=== PATIENT | female | born 1950 | race Caucasian/White ===

== ENCOUNTER 2024-01-25 21:30 | Inpatient (IN) ==
--- NOTE | 2024-01-25 22:09 | Emergency Department Note ---
Impression & Plan Fever ADMIT ED Provider Note HPI: History obtained from patient. The patient is a 73-year-old female who presents emergency department chief complaint of fever and generalized weakness. Patient states that the symptoms just began earlier today. Patient states she has had similar symptoms in the past associated with urinary tract infections. Patient denies any abdominal pain, denies any vomiting, denies any chest pain or shortness of breath. On arrival here to the ER, the patient is noted to be febrile at 39.7, presenting blood pressure is 179/78, patient otherwise appears to be in no acute distress on my initial assessment. She does not splint focal deficits, she is alert and oriented x 3. ROS: - Per HPI Differential Diagnosis: Sepsis, urinary tract infection, pyelonephritis, pneumonia, viral upper respiratory infection to include COVID-19, influenza A, amongst other potential pathologies. *Outpatient medications and allergy history reviewed. PE: General: Alert, frail-appearing, no acute distress HEENT: Normocephalic, trachea midline Eyes: Extraocular eye movement is intact, no scleral erythema Pulmonary: Clear to auscultation bilaterally, no wheezing Cardio: Regular rate and rhythm GI: Abdomen is soft to palpation : No suprapubic tenderness MSK: No evidence of trauma or malformation of the extremities, no edema Skin: No evidence of rash Neuro: Alert, no focal deficits Psychiatric: Cooperative INDEPENDENT INTERPRETATIONS: ekg monitor tech: (As interpreted by myself): - An order was placed for continuous cardiac monitoring - Patient was noted to be in sinus rhythm with a rate of 78 EKG: (As interpreted by myself): 8 rate: 102 Rhythm: Sinus tachycardia Intervals: Within normal limits ST changes: No ST elevation Time: 2222 Chest x-ray: (As interpreted by myself): No acute disease Interventions provided in ED: -IV fluid bolus, IV ceftriaxone Medical Decision Making: IV was established and lab work obtained, patient was placed on clinical research monitor. Lab work shows a leukocytosis of 14.04, hemoglobin is 7.8 with unclear baseline, platelet count is normal, CMP does not show any critical findings, creatinine appears to be near baseline at 1.66 (1.81 in 2019) sodium is slightly low at 129, there is no evidence of any transaminitis, bilirubin is normal, lipase is normal, procalcitonin is elevated at 1.42, urinalysis was obtained and shows 3+ protein, 2+ glucose, 3+ blood, there is trace leukocyte Estrace with some pyuria, also budding yeast. Blood cultures were drawn in the ED, patient was given 30 cc/kg of IV fluid given presenting fever with lab work findings of leukocytosis and elevated procalcitonin. Virus panel testing is negative. Patient was given a dose of ceftriaxone prophylactically over concern for urinary tract infection. In regards to the patient's anemia, she states she has had issues with anemia that previously required transfusions, she states that she was transfused at [facility] in April. Patient states she refused any type of invasive testing such as colonoscopy. She notes that she is DNR/DNI. Patient denies any recent hematemesis or rectal bleeding or melena. Given the patient's generalized weakness, anemia, and possible early sepsis with fever and elevated procalcitonin, she will be admitted to the hospitalist service following my discussion with Dr. Tai. Patient was placed for admission in stable condition. Consultants/Discussions held with other healthcare providers: -Hospitalist, Dr. Tai Disposition discussion held by myself with: -Patient Diagnosis: 1. Fever, acute 2. Chronic kidney disease 3. Anemia of unknown chronicity 4. Leukocytosis, acute 5. Elevated procalcitonin, acute 6. Hyponatremia, acute Disposition: Admission Mitchel Edmondson DO Emergency Medicine Past Med/Surg History Medical History (Updated 01/26/24 @ 02:07 by Mitchel Edmondson DO) Hx pulmonary embolism Family History Other Family history non-contributory Social History Smoking Status: Never smoker Preferred Language: [place]uran marital status: / current occupational status: employed Feels Safe at Home: Yes Allergies Allergies Allergy/AdvReac Type Severity Reaction Status Date / Time No Known Allergies Allergy Verified 01/25/24 22:59 Home Meds Home Medications Medication Instructions Recorded Confirmed allopurinol 100 mg tablet 100 mg PO QAM 10/23/19 01/25/24 metoprolol tartrate 50 mg tablet 50 mg PO BID 10/23/19 01/25/24 umeclidinium 62.5 mcg-vilanterol 1 inh inhalation DAILY 10/23/19 01/25/24 25 mcg/actuation powdr for inhalation (Anoro Ellipta) albuterol sulfate 90 mcg/actuation 2 puff inhalation DIRECTED PRN 01/25/24 01/25/24 aerosol inhaler Shortness Of Breath Or Wheezing apixaban 5 mg tablet (Eliquis) 5 mg PO BID 01/25/24 01/25/24 ibuprofen 200 mg tablet 200 - 400 mg PO Q6H PRN Pain 01/25/24 01/25/24 ondansetron HCl 4 mg tablet 4 mg PO Q8H PRN NAUSEA/VOMITING 01/25/24 01/25/24 silver sulfadiazine 1 % topical 1 applic topical DIRECTED PRN 01/25/24 01/25/24 cream Skin Irritation Results & Data (ED) Vital Signs Vital Signs - 24 hr 01/25/24 21:50 01/25/24 22:02 01/25/24 22:02 Temperature 39.7 C H Temperature Source Oral Pulse Rate 99 H Pulse Rate [Apical] Pulse Rhythm Regular Pulse Strength Normal Respiratory Rate 20 Respiratory Effort / Characteristics Non-Labored Spontaneous Non-Labored Respiratory Depth Normal Normal Respiratory Pattern Blood Pressure 179/78 H Blood Pressure [Left Arm] Blood Pressure Mean 111 Blood Pressure Mean [Left Arm] Blood Pressure Position [Left Arm] Pulse Oximetry 94 98 Oxygen Delivery Method Room Air Room Air Sepsis Recent Fever Within 48 Hours Yes Sepsis New/Unexplained Change in Mental Status N/A Sepsis Action Taken by Nursing No Action Required 01/25/24 23:16 01/26/24 00:25 Temperature 37.9 C H 37.1 C Temperature Source Oral Oral Pulse Rate Pulse Rate [Apical] 88 Pulse Rhythm Pulse Strength Respiratory Rate 18 Respiratory Effort / Characteristics Non-Labored Spontaneous Respiratory Depth Normal Respiratory Pattern Regular Blood Pressure Blood Pressure [Left Arm] 134/58 L Blood Pressure Mean Blood Pressure Mean [Left Arm] 83 Blood Pressure Position [Left Arm] Sitting Pulse Oximetry 97 Oxygen Delivery Method Room Air Sepsis Recent Fever Within 48 Hours Sepsis New/Unexplained Change in Mental Status Sepsis Action Taken by Nursing Laboratory Data 01/25/24 21:50 01/25/24 21:50 Lab Results 01/25/24 01/25/24 Range/Units 21:50 22:44 WBC 14.04 H (4.8-10.8) K/ul RBC 3.17 L (4.20-5.40) M/uL Hgb 7.8 L (12.0-16.0) g/dl Hct 25.8 L (37.0-47.0) % MCV 81.4 (80.0-100.0) fL MCH 24.6 L (25.0-34.0) pg MCHC 30.2 L (32.0-36.0) g/dL RDW Std Deviation 43.4 (36.4-46.3) fL RDW Coeff of Mica 14.6 H (11.5-14.5) % Plt Count 350 (130-400) K/uL MPV 8.9 L (9.4-12.4) fL Immature Gran % (Auto) 0.6 % Neut % (Auto) 92.4 % Lymph % (Auto) 3.8 % [place] % (Auto) 2.4 % Eos % (Auto) 0.5 % Baso % (Auto) 0.3 % Neut # (Auto) 12.99 H (1.40-6.50) K/uL Lymph # (Auto) 0.53 L (1.20-3.40) K/uL [place] # (Auto) 0.33 (0.11-0.59) K/uL Eos # (Auto) 0.07 (0.00-0.50) K/uL Baso # (Auto) 0.04 (0.00-0.20) K/uL Immature Gran # (Auto) 0.08 (0.01-0.20) K/uL Hypochromasia Present PT 12.0 (9.0-12.0) Seconds INR 1.1 (0.9-1.1) Sodium 129 L (136-145) mmol/L Potassium 4.0 (3.5-5.1) mmol/L Chloride 98 (98-107) mmol/L Carbon Dioxide 21 (21-32) mmol/L Anion Gap 10 (3-11) BUN 24 H (6-23) mg/dl Creatinine 1.66 H (0.6-1.2) mg/dl Est Cr Clr Drug Dosing 28.4 ml/min Est GFR ( Amer) 34.6 ml/min Est GFR (Non-Af Amer) 29.8 ml/min BUN/Creatinine Ratio 14.5 (10-20) Glucose 158 H (70-99(Fasting)) mg/dl Calcium 8.8 (8.6-10.3) mg/dl Total Bilirubin 0.6 (0.2-1.0) mg/dl AST 13 (13-39) U/L ALT 7 (7-52) U/L Alkaline Phosphatase 102 (34-104) U/L Total Protein 8.2 (6.0-8.3) gm/dl Albumin 3.3 L (3.4-5.0) gm/dl Globulin 4.9 H (2.5-4.0) gm/dl Albumin/Globulin Ratio 0.7 L (0.9-2) Lipase 23 (11-82) U/L Procalcitonin 1.42 H (0-0.5) ng/ml Urine Color Yellow Urine Appearance Clear (Clear) Urine pH 5.5 (4.5-7.5) Ur Specific [place] 1.016 (1.000-1.030) Urine Protein 3+ H (Negative) Urine Glucose (UA) 2+ H (Negative) Urine Ketones Negative (Negative) Urine Blood 3+ H (Negative) Urine Nitrite Negative (Negative) Urine Bilirubin Negative (Negative) Urine Urobilinogen Negative (Negative) Ur Leukocyte Esterase Trace H (Negative) Urine WBC (Auto) 5-10 H (0-5) /hpf Urine RBC (Auto) >30 H (0-4) /hpf U Hyaline Cast (Auto) 0 (0-5) /lpf U Epithel Cells (Auto) 10-20 H (0-5) /lpf Urine Bacteria (Auto) Negative (Negative) Urine Yeast Budding A (None Prsent) Adenovirus (PCR) Not Detected (NotDetected) B. pertussis DNA (PCR) Not Detected (NotDetected) B.parapertussis DNA PCR Not Detected (NotDetected) C. pneumoniae DNA (PCR) Not Detected (NotDetected) Coronavirus OC43 (PCR) Not Detected (NotDetected) Coronavirus HKU1 (PCR) Not Detected (NotDetected) Coronavirus 229E (PCR) Not Detected (NotDetected) SARS-CoV-2 (PCR) Not Detected (NotDetected) Coronavirus NL63 (PCR) Not Detected (NotDetected) Human Metapneumovir PCR Not Detected (NotDetected) Influenza Type A (PCR) Not Detected (NotDetected) Influenza Type B (PCR) Not Detected (NotDetected) M. pneumoniae (PCR) Not Detected (NotDetected) Parainfluenza 1 (PCR) Not Detected (NotDetected) Parainfluenza 2 (PCR) Not Detected (NotDetected) Parainfluenza 3 (PCR) Not Detected (NotDetected) Parainfluenza 4 (PCR) Not Detected (NotDetected) RSV (PCR) Not Detected (NotDetected) Entero/Rhino (PCR) Not Detected (NotDetected) Administered Medications Sodium Chloride (Nss) 1,000 mls @ 999 mls/hr IV .Q1H1M ONE Stop: 01/26/24 01:45 Last Admin: 01/26/24 00:55 Dose: 999 mls/hr Documented By: CORINNE Discontinued Medications Acetaminophen (Acetaminophen 500 Mg Tab) 1,000 mg PO NOW STA Stop: 01/25/24 22:10 Last Admin: 01/25/24 22:16 Dose: 1,000 mg Documented By: RAGHU Sodium Chloride (Nss) 1,000 mls @ 999 mls/hr IV .Q1H1M STA Stop: 01/25/24 23:02 Last Infusion: 01/25/24 23:14 Dose: Infused Documented By: Admin: 01/25/24 22:13 Dose: 999 mls/hr Documented By: RAGHU Ceftriaxone Sodium (Rocephin) 1,000 mg in 50 mls @ 100 mls/hr IV NOW STA Stop: 01/26/24 00:16 Last Infusion: 01/26/24 00:49 Dose: Infused Documented By: Admin: 01/26/24 00:19 Dose: 100 mls/hr Documented By: CORINNE Imaging Data Radiologist's Impression: Chest X-Ray 01/26/24 00:01 SINGLE VIEW CHEST CLINICAL HISTORY: Fever FINDINGS: An AP, portable, upright chest radiograph is compared to study dated 10/23/2019. The heart is mildly enlarged. The pulmonary vasculature is noncongested. Chronic interstitial thickening is similar to previous. There is mild bibasilar scarring/atelectasis. The lungs and pleural spaces are otherwise clear. No pneumothorax is seen. The skeletal structures are osteopenic. The bony thorax is grossly intact. IMPRESSION: Mild cardiomegaly with no active disease in the chest. ACT 112: Negative or not required by law. Electronically signed by: Jordy Agudelo M.D. 01/26/2024 12:36 AM Discharge Plan Visit Data Chief Complaint: Fever Stated Complaint: Fever, Weakness ED Provider: Mitchel Edmondson Discharge Problem: Fever Forms Stand Alone Forms: [facility] Prescriptions Prescriptions: No Action allopurinol 100 mg tablet 100 mg PO QAM metoprolol tartrate 50 mg tablet 50 mg PO BID Anoro Ellipta 62.5-25 mcg/actuation blister with device 1 inh INHALATION DAILY Rx Instructions: PER PT "DON'T USE TO OFTEN". silver sulfadiazine 1 % cream 1 applic TOPICAL DIRECTED PRN (Reason: Skin Irritation) ondansetron HCl 4 mg tablet 4 mg PO Q8H PRN (Reason: NAUSEA/VOMITING) ibuprofen 200 mg Tablet 200 - 400 mg PO Q6H PRN (Reason: Pain) albuterol sulfate 90 mcg/actuation Hfa Aerosol Inhaler 2 puff INHALATION DIRECTED PRN (Reason: Shortness Of Breath Or Wheezing) Eliquis 5 mg tablet 5 mg PO BID Referrals Referrals: PCP,NO [Physician] - Discharge Problem: Fever Qualifiers: Fever type: unspecified Qualified Code(s): R50.9 - Fever, unspecified
[2024-01-25] MEDS: SODIUM CHLORIDE 0.9% 1,000 ML IV STA (22:13)
[2024-01-25] MEDS: ACETAMINOPHEN 500 MG TAB PO STA (22:16)
[2024-01-25 22:23] LABS: Hematocrit (blood only) 25.8 % (37.0-47.0); Hemoglobin 7.8 g/dl (12.0-16.0); Mean Corpuscular Hemoglobin 24.6 pg (25.0-34.0); Mean Corpuscular Hgb Conc 30.2 g/dL (32.0-36.0); Mean Corpuscular Volume 81.4 fL (80.0-100.0); Mean Platelet Volume 8.9 fL (9.4-12.4); Platelet Count 350 K/uL (130-400); RDW Coefficient of Variation 14.6 % (11.5-14.5); RDW Standard Deviation 43.4 fL (36.4-46.3); Red Blood Count 3.17 M/uL (4.20-5.40); White Blood Count 14.04 K/ul (4.8-10.8)
[2024-01-25 22:41] LABS: Basophils # (auto) 0.04 K/uL (0.00-0.20); Basophils % (auto) 0.3 %; Eosinophils # (auto) 0.07 K/uL (0.00-0.50); Eosinophils % (auto) 0.5 %; Hypochromasia Present; Immature Granulocytes # (auto) 0.08 K/uL (0.01-0.20); Immature Granulocytes % (auto) 0.6 %; Lymphocytes # (auto) 0.53 K/uL (1.20-3.40); Lymphocytes % (auto) 3.8 %; Monocytes # (auto) 0.33 K/uL (0.11-0.59); Monocytes % (auto) 2.4 %; Neutrophils # (auto) 12.99 K/uL (1.40-6.50); Neutrophils % (auto) 92.4 %
[2024-01-25 22:47] LABS: INR 1.1 (0.9-1.1)
[2024-01-25 22:56] LABS: Albumin Globulin Ratio 0.7 (0.9-2); Albumin Level 3.3 gm/dl (3.4-5.0); BUN Creatinine Ratio 14.5 (10-20); Bilirubin,Total 0.6 mg/dl (0.2-1.0); Calcium 8.8 mg/dl (8.6-10.3); Creatinine Clr Calc Pharmacy 28.4 ml/min; Est GFR (African American) 34.6 ml/min; Est GFR (Non-African American) 29.8 ml/min; Globulin 4.9 gm/dl (2.5-4.0); Total Protein 8.2 gm/dl (6.0-8.3)
[2024-01-25 22:56] LABS: Appearance Urine Clear (Clear); Bacteria Urine Automated Negative (Negative); Bilirubin Urine Negative (Negative); Blood Urine 3+ (Negative); Cast Urine Automated 0 /lpf (0-5); Color Urine Yellow; Glucose Urine UA 2+ (Negative); Ketones Urine Negative (Negative); Leukocyte Esterase Urine Trace (Negative); Nitrite Urine Negative (Negative); Protein Urine 3+ (Negative); Specific Gravity Urine 1.016 (1.000-1.030); Urobilinogen Urine Negative (Negative); pH Urine 5.5 (4.5-7.5)
[2024-01-25 23:12] LABS: RBC Urine Automated >30 /hpf (0-4)
[2024-01-25 23:44] LABS: Adenovirus PCR Not Detected (NotDetected); Bordetella parapertussis PCR Not Detected (NotDetected); Bordetella pertussis PCR Not Detected (NotDetected); Chlamydia pneumoniae PCR Not Detected (NotDetected); Coronavirus 229E PCR Not Detected (NotDetected); Coronavirus CoV-2 (COVID19)PCR Not Detected (NotDetected); Coronavirus HKU1 PCR Not Detected (NotDetected); Coronavirus NL63 PCR Not Detected (NotDetected); Coronavirus OC43PCR Not Detected (NotDetected); Human Metapneumovirus PCR Not Detected (NotDetected); Influenza A PCR Not Detected (NotDetected); Influenza B PCR Not Detected (NotDetected); Mycoplasma pneumoniae PCR Not Detected (NotDetected); Parainfluenza Virus 1 PCR Not Detected (NotDetected); Parainfluenza Virus 2 PCR Not Detected (NotDetected); Parainfluenza Virus 3 PCR Not Detected (NotDetected); Parainfluenza Virus 4 PCR Not Detected (NotDetected); Respiratory Syncytial VirusPCR Not Detected (NotDetected); Rhinovirus/Enterovirus PCR Not Detected (NotDetected)
[2024-01-26] MEDS: cefTRIAXone SODIUM 1,000 MG/50 ML BAG IV STA (00:19)
--- NOTE | 2024-01-26 00:38 | XRay Report ---
SINGLE VIEW CHEST CLINICAL HISTORY: Fever FINDINGS: An AP, portable, upright chest radiograph is compared to study dated 10/23/2019. The heart is mildly enlarged. The pulmonary vasculature is noncongested. Chronic interstitial thickening is sim ilar to previous. There is mild bibasilar scarring/atelectasis. The lungs and pleural spaces are othe rwise clear. No pneumothorax is seen. The skeletal structures are osteopenic. The bony thorax is sung sly intact. IMPRESSION: Mild cardiomegaly with no active disease in the chest. ACT 112: Negative or not required by law. Electronically signed by: Jordy Agudelo M.D. 01/26/2024 12:36 AM
[2024-01-26] MEDS: SODIUM CHLORIDE 0.9% 1,000 ML IV ONE (00:55)
--- NOTE | 2024-01-26 01:38 | History & Physical Report ---
Date of Service January 26, 2024 Assessment & Plan (1) Symptomatic anemia: (2) Chronic anticoagulation: (3) Urinary tract infection: (4) Hyponatremia: (5) Generalized weakness: (6) Ambulatory dysfunction: (7) CKD (chronic kidney disease), stage III: (8) Gout: (9) Hypertension: (10) Asthma: (11) Sacral wound: (12) Hx pulmonary embolism: (13) Fever: Plan Symptomatic anemia- Hemoglobin 7.8 on admission, with no signs of acute blood loss Patient describes admission to [facility] and April 2023 where hemoglobin was less than 5 and required 3 to 4 units PRBCs transfusion Patient does not want any workup done to look for causes as she would not want any interventions Patient will accept transfusion as needed, and type and screen ordered with consent obtained Hemoglobin is likely significantly less than 7.8, as patient appears dehydrated, and has received 2 L of normal saline fluid Temporarily hold apixaban Generalized weakness/ambulatory dysfunction- Contributing factors including but not limited to: Anemia, urinary tract infection, hyponatremia, progression of underlying dysfunction Will need physical therapy and Occupational Therapy consult once anemia is corrected and stable Urinary tract infection- Leukocytosis, with abnormal UA, and presence of yeast Placed on ceftriaxone 2 g IV daily and fluconazole 100 mg IV daily Follow urine culture and sensitivities Pulmonary embolism- Temporarily hold apixaban in setting of symptomatic anemia Hyponatremia/CKD- Sodium 129 on admission Creatinine 1.66 with baseline 1.81 Patient is overdue received 2 L normal saline from the ED Recheck laboratories in the a.m. History of Present Illness Chief Complaint: The patient is brought to the emergency department due to generalized weakness, that has worsened significantly in the past 24 hours, with decreased ability to walk, and a reported temperature of 103 F, similar to previous occurrences when she had urinary tract infections Primary Care Provider: Gwen Bravo MD The patient is a 73-year-old female with a past medical history including pulmonary embolism on chronic anticoagulation, asthma, gout, hypertension, history of urinary tract infection, history of anemia requiring 3 to 4 units of PRBCs in 05-19 at [facility]. Patient presents to the emergency department symptoms as noted above including acute worsening of chronic generalized weakness, now affecting ability to walk, and had a temperature of 103 F. Laboratories today fine hemoglobin 7.8, with most recent from 2018 here 11.4. She denies any recent loss of blood in stool or urine. She reports that in April 2013 she was admitted to [facility], where her hemoglobin was less than 5, and required 3 to 4 units of PRBCs. She denied at that time any interest in pursuing a workup, and she reports that she does not want any type of workup this admission either. She will however except transfusions if needed. She notes that she had a return of menses from 8 62-72, after having started warfarin at that time, and this stopped after she had a D&C at and has not recurred since. Sodium was mildly low at 129 [employer] testing is negative, and urinalysis is positive including yeast. From the ED the patient received the following normal saline 1 L x 2, Tylenol 1 g p.o., and ceftriaxone 1 g IV Allergies Allergy/AdvReac Type Severity Reaction Status Date / Time No Known Allergies Allergy Verified 01/25/24 22:59 Home Medications Medication Instructions Recorded Confirmed Type allopurinol 100 mg tablet 100 mg PO QAM 10/23/19 01/25/24 History metoprolol tartrate 50 mg tablet 50 mg PO BID 10/23/19 01/25/24 History umeclidinium 62.5 mcg-vilanterol 1 inh inhalation DAILY 10/23/19 01/25/24 History 25 mcg/actuation powdr for inhalation (Anoro Ellipta) albuterol sulfate 90 mcg/actuation 2 puff inhalation DIRECTED PRN 01/25/24 01/25/24 History aerosol inhaler Shortness Of Breath Or Wheezing apixaban 5 mg tablet (Eliquis) 5 mg PO BID 01/25/24 01/25/24 History ibuprofen 200 mg tablet 200 - 400 mg PO Q6H PRN Pain 01/25/24 01/25/24 History ondansetron HCl 4 mg tablet 4 mg PO Q8H PRN NAUSEA/VOMITING 01/25/24 01/25/24 History silver sulfadiazine 1 % topical 1 applic topical DIRECTED PRN 01/25/24 01/25/24 History cream Skin Irritation Past Med/Surg History Medical History (Updated 01/26/24 @ 03:29 by Carlton Tai MD) Sacral wound Asthma Hypertension Gout CKD (chronic kidney disease), stage III Anemia requiring transfusions Chronic anticoagulation Hx pulmonary embolism Family History Other Family history non-contributory Social History Smoking Status: Never smoker Preferred Language: Serbian marital status: / current occupational status: employed Feels Safe at Home: Yes Review of Systems Review of Systems: The patient denies chest pain, palpitations, cough, lower extremity swelling, sore throat, fevers, chills, sweats, nausea, vomiting, diarrhea , constipation, abdominal pain, pelvic pain, blood in urine or stool, lightheadedness, dizziness, headache, loss of consciousness, rash, focal weakness, numbness or tingling in arms or legs, generalized arthralgias or myalgias, back or neck pain, or night sweats. The review of systems is otherwise negative other than for that already noted above, and at least 10 systems have been reviewed. Physical Exam Physical Exam: The patient is awake, alert and oriented 3, well developed and well nourished, normocephalic and atraumatic, lying in bed and in no acute distress. HEENT--PERRL, EOMI, mucous membranes and oropharynx dry. Neck--supple. No JVD. No bruits. Thyroid normal, trachea midline, no adenopathy. Heart--normal S1 and S2. No murmurs, rubs or gallops. Lungs--clear bilaterally, no respiratory distress, no accessory muscle use. Abdomen--normal bowel sounds and soft. Nontender. Nondistended, no hernias or masses, no organomegaly. Extremities--no cyanosis or clubbing. No edema. Dermatologic--excoriated skin at superior aspect of the gluteal folds with no signs of active bleeding or drainage Neurologic--cranial nerves II through XII grossly intact. Rheumatologic--normal range of motion. Psychiatric--normal affect. Results & Data Results & Data Vital Signs (Past 12 Hours) Vital Signs Temp Pulse Pulse Resp BP BP Pulse Ox 01/26/24 00:25 37.1 C 01/25/24 23:16 37.9 C H 88 18 134/58 L 97 01/25/24 22:02 98 01/25/24 21:50 39.7 C H 99 H 20 179/78 H 94 O2 Del Method 01/26/24 00:25 01/25/24 23:16 Room Air 01/25/24 22:02 Room Air 01/25/24 21:50 Room Air Laboratory Results Laboratory Results WBC 14.04 K/ul (4.8-10.8) H 01/25/24 21:50 RBC 3.17 M/uL (4.20-5.40) L 01/25/24 21:50 Hgb 7.8 g/dl (12.0-16.0) L 01/25/24 21:50 Hct 25.8 % (37.0-47.0) L 01/25/24 21:50 MCV 81.4 fL (80.0-100.0) 01/25/24 21:50 MCH 24.6 pg (25.0-34.0) L 01/25/24 21:50 MCHC 30.2 g/dL (32.0-36.0) L 01/25/24 21:50 RDW Std Deviation 43.4 fL (36.4-46.3) 01/25/24 21:50 RDW Coeff of Mica 14.6 % (11.5-14.5) H 01/25/24 21:50 Plt Count 350 K/uL (130-400) 01/25/24 21:50 MPV 8.9 fL (9.4-12.4) L 01/25/24 21:50 Immature Gran % (Auto) 0.6 % 01/25/24 21:50 Neut % (Auto) 92.4 % 01/25/24 21:50 Lymph % (Auto) 3.8 % 01/25/24 21:50 [place] % (Auto) 2.4 % 01/25/24 21:50 Eos % (Auto) 0.5 % 01/25/24 21:50 Baso % (Auto) 0.3 % 01/25/24 21:50 Neut # (Auto) 12.99 K/uL (1.40-6.50) H 01/25/24 21:50 Lymph # (Auto) 0.53 K/uL (1.20-3.40) L 01/25/24 21:50 [place] # (Auto) 0.33 K/uL (0.11-0.59) 01/25/24 21:50 Eos # (Auto) 0.07 K/uL (0.00-0.50) 01/25/24 21:50 Baso # (Auto) 0.04 K/uL (0.00-0.20) 01/25/24 21:50 Immature Gran # (Auto) 0.08 K/uL (0.01-0.20) 01/25/24 21:50 Hypochromasia Present 01/25/24 21:50 PT 12.0 Seconds (9.0-12.0) 01/25/24 21:50 INR 1.1 (0.9-1.1) 01/25/24 21:50 Sodium 129 mmol/L (136-145) L 01/25/24 21:50 Potassium 4.0 mmol/L (3.5-5.1) 01/25/24 21:50 Chloride 98 mmol/L (98-107) 01/25/24 21:50 Carbon Dioxide 21 mmol/L (21-32) 01/25/24 21:50 Anion Gap 10 (3-11) 01/25/24 21:50 BUN 24 mg/dl (6-23) H 01/25/24 21:50 Creatinine 1.66 mg/dl (0.6-1.2) H 01/25/24 21:50 Est Cr Clr Drug Dosing 28.4 ml/min 01/25/24 21:50 Est GFR ( Amer) 34.6 ml/min 01/25/24 21:50 Est GFR (Non-Af Amer) 29.8 ml/min 01/25/24 21:50 BUN/Creatinine Ratio 14.5 (10-20) 01/25/24 21:50 Glucose 158 mg/dl (70-99(Fasting)) H 01/25/24 21:50 Calcium 8.8 mg/dl (8.6-10.3) 01/25/24 21:50 Total Bilirubin 0.6 mg/dl (0.2-1.0) 01/25/24 21:50 AST 13 U/L (13-39) 01/25/24 21:50 ALT 7 U/L (7-52) 01/25/24 21:50 Alkaline Phosphatase 102 U/L (34-104) 01/25/24 21:50 Total Protein 8.2 gm/dl (6.0-8.3) 01/25/24 21:50 Albumin 3.3 gm/dl (3.4-5.0) L 01/25/24 21:50 Globulin 4.9 gm/dl (2.5-4.0) H 01/25/24 21:50 Albumin/Globulin Ratio 0.7 (0.9-2) L 01/25/24 21:50 Lipase 23 U/L (11-82) 01/25/24 21:50 Procalcitonin 1.42 ng/ml (0-0.5) H 01/25/24 21:50 Urine Color Yellow 01/25/24 22:44 Urine Appearance Clear (Clear) 01/25/24 22:44 Urine pH 5.5 (4.5-7.5) 01/25/24 22:44 Ur Specific [place] 1.016 (1.000-1.030) 01/25/24 22:44 Urine Protein 3+ (Negative) H 01/25/24 22:44 Urine Glucose (UA) 2+ (Negative) H 01/25/24 22:44 Urine Ketones Negative (Negative) 01/25/24 22:44 Urine Blood 3+ (Negative) H 01/25/24 22:44 Urine Nitrite Negative (Negative) 01/25/24 22:44 Urine Bilirubin Negative (Negative) 01/25/24 22:44 Urine Urobilinogen Negative (Negative) 01/25/24 22:44 Ur Leukocyte Esterase Trace (Negative) H 01/25/24 22:44 Urine WBC (Auto) 5-10 /hpf (0-5) H 01/25/24 22:44 Urine RBC (Auto) >30 /hpf (0-4) H 01/25/24 22:44 U Hyaline Cast (Auto) 0 /lpf (0-5) 01/25/24 22:44 U Epithel Cells (Auto) 10-20 /lpf (0-5) H 01/25/24 22:44 Urine Bacteria (Auto) Negative (Negative) 01/25/24 22:44 Urine Yeast Budding (None Prsent) A 01/25/24 22:44 Adenovirus (PCR) Not Detected (NotDetected) 01/25/24 22:44 B. pertussis DNA (PCR) Not Detected (NotDetected) 01/25/24 22:44 B.parapertussis DNA PCR Not Detected (NotDetected) 01/25/24 22:44 C. pneumoniae DNA (PCR) Not Detected (NotDetected) 01/25/24 22:44 Coronavirus OC43 (PCR) Not Detected (NotDetected) 01/25/24 22:44 Coronavirus HKU1 (PCR) Not Detected (NotDetected) 01/25/24 22:44 Coronavirus 229E (PCR) Not Detected (NotDetected) 01/25/24 22:44 SARS-CoV-2 (PCR) Not Detected (NotDetected) 01/25/24 22:44 Coronavirus NL63 (PCR) Not Detected (NotDetected) 01/25/24 22:44 Human Metapneumovir PCR Not Detected (NotDetected) 01/25/24 22:44 Influenza Type A (PCR) Not Detected (NotDetected) 01/25/24 22:44 Influenza Type B (PCR) Not Detected (NotDetected) 01/25/24 22:44 M. pneumoniae (PCR) Not Detected (NotDetected) 01/25/24 22:44 Parainfluenza 1 (PCR) Not Detected (NotDetected) 01/25/24 22:44 Parainfluenza 2 (PCR) Not Detected (NotDetected) 01/25/24 22:44 Parainfluenza 3 (PCR) Not Detected (NotDetected) 01/25/24 22:44 Parainfluenza 4 (PCR) Not Detected (NotDetected) 01/25/24 22:44 RSV (PCR) Not Detected (NotDetected) 01/25/24 22:44 Entero/Rhino (PCR) Not Detected (NotDetected) 01/25/24 22:44 Impressions Chest X-Ray 01/26/24 00:01 SINGLE VIEW CHEST CLINICAL HISTORY: Fever FINDINGS: An AP, portable, upright chest radiograph is compared to study dated 10/23/2019. The heart is mildly enlarged. The pulmonary vasculature is noncongested. Chronic interstitial thickening is similar to previous. There is mild bibasilar scarring/atelectasis. The lungs and pleural spaces are otherwise clear. No pneumothorax is seen. The skeletal structures are osteopenic. The bony thorax is grossly intact. IMPRESSION: Mild cardiomegaly with no active disease in the chest. ACT 112: Negative or not required by law. Electronically signed by: Jordy Agudelo M.D. 01/26/2024 12:36 AM Code Status & VTE Plan Code Status DNR/DNI VTE Prophylaxis Plan VTE Prophylaxis will be ordered: Yes PG Care Time/CCT Total # of Minutes Spent Total Time Spent with Patient: Total time spent is greater than 50% in coordination of care (as documented) at patient's floor/unit and/or counseling patient: Coding Level of Care Code 71559 INT INP/OBS CARE 3/75MIN Diagnoses Symptomatic anemia D64.9 Chronic anticoagulation Z79.01 Urinary tract infection N39.0 Hyponatremia E87.1 Generalized weakness R53.1 Ambulatory dysfunction R26.2 CKD (chronic kidney disease), stage III N18.30 Gout M10.9 Hypertension I10 Asthma J45.909 Sacral wound S31.000A Hx pulmonary embolism Z86.711 Fever R50.9 Fever type: unspecified (13) Fever Fever type: unspecified Qualified Code(s): R50.9 - Fever, unspecified
[2024-01-26] MEDS: SODIUM CHLORIDE 0.9% 250 ML IV ONE (02:00)
[2024-01-26] MEDS ORDERED: ONDANSETRON INJ 2 MG/ML 2 ML VIAL IV PRN (03:32)
[2024-01-26] MEDS ORDERED: ALBUTEROL HFA 8 GM INHALER INH PRN (03:32)
[2024-01-26] MEDS ORDERED: ONDANSETRON 4 MG OD TAB PO PRN (03:37)
[2024-01-26] MEDS: SODIUM CHLORIDE 0.9% 1,000 ML IV SCH (04:06)
[2024-01-26 06:11] LABS: Hematocrit (blood only) 22.5 % (37.0-47.0); Hemoglobin 6.8 g/dl (12.0-16.0); Mean Corpuscular Hemoglobin 24.9 pg (25.0-34.0); Mean Corpuscular Hgb Conc 30.2 g/dL (32.0-36.0); Mean Corpuscular Volume 82.4 fL (80.0-100.0); Mean Platelet Volume 8.7 fL (9.4-12.4); Platelet Count 275 K/uL (130-400); RDW Coefficient of Variation 14.6 % (11.5-14.5); RDW Standard Deviation 43.5 fL (36.4-46.3); Red Blood Count 2.73 M/uL (4.20-5.40); White Blood Count 9.89 K/ul (4.8-10.8)
[2024-01-26 06:13] LABS: Albumin Level 2.6 gm/dl (3.4-5.0); BUN Creatinine Ratio 14.3 (10-20); Calcium 7.7 mg/dl (8.6-10.3); Creatinine Clr Calc Pharmacy 30.1 ml/min; Est GFR (African American) 37.9 ml/min; Est GFR (Non-African American) 32.7 ml/min; Phosphorus 4.1 mg/dl (2.5-4.9); Potassium 3.7 mmol/L (3.5-5.1)
[2024-01-26] MEDS: FLUCONAZOLE 100 MG/50 ML BAG IV SCH (06:18)
[2024-01-26 06:24] LABS: Basophils # (auto) 0.03 K/uL (0.00-0.20); Basophils % (auto) 0.3 %; Eosinophils # (auto) 0.01 K/uL (0.00-0.50); Eosinophils % (auto) 0.1 %; Hypochromasia Present; Immature Granulocytes # (auto) 0.07 K/uL (0.01-0.20); Immature Granulocytes % (auto) 0.7 %; Lymphocytes # (auto) 0.47 K/uL (1.20-3.40); Lymphocytes % (auto) 4.8 %; Monocytes # (auto) 0.54 K/uL (0.11-0.59); Monocytes % (auto) 5.5 %; Neutrophils # (auto) 8.77 K/uL (1.40-6.50); Neutrophils % (auto) 88.6 %; Polychromasia 1+
[2024-01-26] MEDS ORDERED: SODIUM CHLORIDE 0.9% 250 ML IV PRN ×2 (06:48→07:54)
--- NOTE | 2024-01-26 07:31 | Communication Note ---
Alerted by nursing at 0630 of Hbg=6.8, 1 unit pRBC ordered. Vital signs stable. Date of Service: January 26, 2024
[2024-01-26] MEDS: UMECLIDINIUM/VILANTEROL 62.5/25MCG 7 PUFFS/INHALER INH SCH (08:23)
[2024-01-26] MEDS: ACETAMINOPHEN 325 MG TAB PO PRN (08:23)
[2024-01-26] MEDS: allopurinoL 100 MG TAB PO SCH (08:24)
[2024-01-26] MEDS: METOPROLOL TARTRATE 50 MG TAB PO SCH (08:24)
[2024-01-26 10:49] LABS: Ferritin 49.4 ng/ml (8-388)
[2024-01-26] MEDS: IRON SUCROSE 300 MG in SODIUM CHLORIDE 0.9% 250 ML IV ONE (12:56)
--- NOTE | 2024-01-26 13:07 | Electrocardiogram Report ---
Test Reason : Blood Pressure : / mmHG Vent. Rate : 102 BPM Atrial Rate : 102 BPM P-R Int : 166 ms QRS Dur : 066 ms QT Int : 336 ms P-R-T Axes : 097 007 048 degrees QTc Int : 437 ms Sinus tachycardia Otherwise normal ECG When compared with ECG of 23-OCT-2019 17:48, HR has increased by 21 bpm Otherwise no significant change Confirmed by Maurice Vargas ([id number]) on 01/26/2024 1:06:39 PM Referred By: REFERRED SELF Confirmed By:Maurice Vargas
--- NOTE | 2024-01-26 13:53 | Hospitalist Progress Note ---
Date of Service January 26, 2024 Assessment & Plan (1) Symptomatic anemia: Plan: No overt evidence of GI bleeding. Blood transfusion has been ordered but presence of antibodies is delaying type and cross. Serial labs. (2) Chronic anticoagulation: Plan: This was started due to her past history of pulmonary embolism which is not recent. I believe risks outweigh any potential benefits. Eliquis has been discontinued permanently (3) Urinary tract infection: Plan: Continue Rocephin and fluconazole for now, day 1. Await final urine culture and blood culture results (4) Hyponatremia: Plan: Mild on admission. Asymptomatic. Serial labs (5) CKD (chronic kidney disease), stage III: Plan: Stable. Monitor intake and output. Serial lab (6) Hypertension: Plan: Stable. Continue current medical management (7) Sacral wound: Plan: Stage II. Continue current local care (8) Hx pulmonary embolism: Plan: Apparently this is the reason she is on systemic anticoagulation but this occurred sometime ago. Nothing acute. Systemic anticoagulation has been discontinued (9) Iron deficiency: Plan: Parenteral iron replacement with Venofer for 3 days then oral replacement thereafter going forward Plan Anticipate eventual discharge to home. Admission and Anticipated Discharge Date Admission Date: January 26, 2024 Subjective Alert and oriented. No distress. Type and cross of packed red blood cells has been delayed due to presence of antibodies. She eventually will receive 2 units for hemoglobin 6.8. Iron deficiency noted. In the meantime, parenteral Venofer has been started. Her history of pulmonary embolism is quite old and I am uncertain why she is still on systemic anticoagulation which probably should be discontinued because the risks outweigh any potential benefit in this age group. OT and PT assessments have been requested. Review of Systems 2 Review of Systems: Constitutional-no fever or chills ENT-no blurred vision, no double vision, no epistaxis, no sore throat Respiratory-no cough, no wheezing, no shortness of breath Cardiac-no palpitations, no chest pain, no syncope GI-no nausea, vomiting, diarrhea, melena, hematochezia -no urinary retention, no urinary incontinence, no dysuria, no hematuria Musculoskeletal-no joint pain, no muscle tenderness Skin-no bruising, no rashes, no pruritus Neuro-no isolated weakness, no paresthesia. She does have generalized weakness however Psych-no depression, no anxiety Physical Exam 2 Physical Exam: General-alert and oriented x3, no fevers, no chills HEENT-head atraumatic and normocephalic, pupils equal and reactive to light, extraocular muscles intact Neck-no lymphadenopathy or thyromegaly, trachea midline Chest-clear to auscultation. No rales, wheezing or rhonchi Cardiac-regular rate and rhythm, normal S1 and S2 Abdomen-normal bowel sounds, nontender, no hepatosplenomegaly Extremities-no cyanosis, clubbing, or edema Neuro-cranial nerves II through XII intact, motor and sensory function within normal limits, strength symmetrical with generalized weakness, no focal deficits Psych-normal affect, normal mood Results & Data Results & Data Vital Signs (Past 12 Hours) Vital Signs Temp Pulse Pulse Pulse Resp BP BP 01/26/24 11:47 37.1 C 75 18 133/67 01/26/24 08:15 01/26/24 07:12 36.8 C 83 18 140/62 01/26/24 04:06 36.6 C 77 18 145/70 H 01/26/24 03:30 01/26/24 03:23 81 01/26/24 02:00 37.0 C 76 18 145/67 H Pulse Ox O2 Del Method 01/26/24 11:47 95 Room Air 01/26/24 08:15 Room Air 01/26/24 07:12 97 Room Air 01/26/24 04:06 97 Room Air 01/26/24 03:30 Room Air 01/26/24 03:23 01/26/24 02:00 98 Room Air Laboratory Results 01/26/24 05:22 01/26/24 05:22 PG Care Time/CCT Total # of Minutes Spent Total Time Spent with Patient: Total time spent is greater than 50% in coordination of care (as documented) at patient's floor/unit and/or counseling patient: Coding Level of Care Code 38427 SUB INP/OBS CARE 3/50MIN Diagnoses Symptomatic anemia D64.9 Chronic anticoagulation Z79.01 Urinary tract infection N39.0 Hyponatremia E87.1 CKD (chronic kidney disease), stage III N18.30 Hypertension I10 Sacral wound S31.000A Hx pulmonary embolism Z86.711 Iron deficiency E61.1
[2024-01-26] MEDS: ONDANSETRON INJ 2 MG/ML 2 ML VIAL IV PRN (17:33)
[2024-01-26] MEDS ORDERED: hydrALAZINE HCL 20 MG/ML VIAL IV PRN (17:53)
[2024-01-26] MEDS: FUROSEMIDE 40 MG/4 ML VIAL IV STA (18:21)
[2024-01-26] MEDS: hydrALAZINE HCL 20 MG/ML VIAL IV STA (18:21)
[2024-01-26] MEDS: FUROSEMIDE 40 MG/4 ML VIAL IV ONE ×2 (18:22→21:23)
[2024-01-26] MEDS: hydrALAZINE HCL 20 MG/ML VIAL ONE (18:22)
[2024-01-26 18:23] LABS: Base Excess ABG -11.7 mEq/L (-9-1.8); HCO3 ABG 17 mmol/L (19-24); Oxygen Saturation ABG 92.3 % (90-95); PCO2 ABG 49 mmHg (35-46); PO2 ABG 70 mmHg (80-95)
--- NOTE | 2024-01-26 18:24 | XRay Report ---
SINGLE VIEW CHEST CLINICAL HISTORY: Hypoxia FINDINGS: An AP, portable, upright chest radiograph is compared to study performed earlier the same d ay 01/26/2024. The examination is degraded by portable technique and patient rotation. The heart is mi ldly enlarged. There is pulmonary vascular congestion. Multifocal bilateral airspace opacities are ne w from previous and likely represent pulmonary edema. Suspect trace pleural effusions. No pneumothora x is seen. The skeletal structures are osteopenic. The bony thorax is grossly intact. IMPRESSION: 1. Mild cardiomegaly with evidence of congestive failure. 2. Multifocal airspace opacities are new from today's earlier examination and likely represent pulmon fox edema. Correlate clinically. Radiographic follow-up to resolution is recommended. ACT 112: Negative or not required by law. Electronically signed by: Jordy Agudelo M.D. 01/26/2024 6:23 PM
[2024-01-26 18:25] LABS: Allen Test Pos (Pos)
[2024-01-26 18:26] LABS: pH ABG 7.15 (7.35-7.45)
[2024-01-26 18:33] LABS: Hematocrit (blood only) 30.6 % (37.0-47.0)
[2024-01-26] MEDS: PIPERACILLIN/TAZOBACTAM 4.5 GM in DEXTROSE 5% MINI-B 100 ML IV ONE (18:44)
--- NOTE | 2024-01-26 19:40 | Communication Note ---
Date of Service: January 26, 2024 Called to bedside at 7:10 p.m. by nursing. When I arrived at [facility], nursing and supervisors provided updates on the patient's clinical status. Per chart review, there was an episode of acute shortness of breath after vomiting and the hospitalist had concern of possible aspiration. The patient also had been receiving ongoing IV fluids so this was also discontinued due to concern of fluid overload, she was also given IV Lasix. I examined the patient at bedside, patient had BiPAP on and soft limb restraints. Patient was able to verbalize that she wanted the limb restraints off, and she refused to answer my questions about pain/discomfort or orientation. Physical exam was limited due to patient cooperation, some crackles appreciated at lung bases. I was contacted by nursing due to dispute with the family, at which time security had also been called. The patient's son was irate and yelling. I asked family if there were any questions that I could answer and they declined. Nursing notified me that respiratory saw patient and patient was transitioned to oxymask and had an appropriate oxygen saturation. I ordered additional Lasix to assist with further diuresis.
[2024-01-26] MEDS: DEXTROSE 5% IV STA (20:21)
[2024-01-26] MEDS: METHYLPREDNISOLONE IV STA (20:21)
[2024-01-26] MEDS ORDERED: cefTRIAXone SODIUM 2,000 MG in DEXTROSE 5 % MINI-B 50 ML IV SCH (22:00)
[2024-01-26] MEDS: methylPREDNISolone 40 MG in SYRINGE 0 ML IV SCH (23:51)
[2024-01-26] MEDS: PIPERACILLIN/TAZOBACTAM 4.5 GM in DEXTROSE 5% MINI-B 100 ML IV SCH (23:51)
--- OUTSIDE RECORDS SUMMARY | 2024-01-27 04:11 | External Medical Summary ---
Author Name Unknown Address Unknown Organization K1G:[facility] - [address] [place] [id number] Laboratory Report Ordering Provider Test Date Status ROLANDAJADYN 11/09/2023 16:40:25 Final Observation Date Value Abnormality Reference (Units ) Status Lactic Acid, Whole Blood 11/09/2023 16:40:25 0.5 0.4-2.0 (mmol/L) Final Performing Location [facility] - [address] [place] [id number]
--- OUTSIDE RECORDS SUMMARY | 2024-01-27 04:11 | External Medical Summary | Summary of Care ---
Author Name Unknown Organization [facility] Address [address] [place] [address] Phone [phone] Care Team Providers Care Lumber Bearer Name Role Phone Gwen Bravo MD Primary Care Prov ider Reason for Visit * Reason Comments Wound Care * Evaluate & Treat - Unlimited Visits (Within 10 days (routine)) - Authorized Specialty Diagnoses / Procedures Referred By Contac t Referred To Contact Wound Care Diagnoses Wound of right buttock, subsequent encounter Josue Barry PA-C [address] [place] [address] Referral ID Status Reason Start Date Expiration Date Visits Requested Visits Authorized [id number] Authorized Specialty Services Required 3 [phone] Encounter Details Date Type Department Care Team (Late st Contact Info) Description 11/15/2023 11:10 AM EST Office Visit Wound Care, [place] [address] [place] [address] Fly Maxwell MD [address], [place] [id number] Pressure injury of buttock, stage 3, unspecified laterality (HCC)*; Type 2 diabetes mellitus without complication, without long-term current use of insulin (HCC); Stage 3b chronic kidney disease (HCC) Allergies No known active allergiesdocumented as of this encounter (statuses as of 11/15/2023) Medications Medication Sig Dispensed Refills Start Date End Date Status Anoro Ellipta 62.5-25 MCG/ACT Inhalation Aerosol Powder Breath Activated (umeclidinium-vilan terol) Inhale 1 Puff by mouth in the morning. 0 Active Albuterol Sulfate HFA 108 (90 Base) MCG/ACT Inhalation Aerosol Solution Inhale 2 Puffs by mouth daily as needed for Wheezing. 0 Active Allopurinol 100 MG Oral Tablet (Zyloprim) Take 1 Tablet by mouth in the morning. 0 Active Metoprolol Tartrate 50 MG Oral Tablet (Lopressor) Take 1 Tablet by mouth in the morning and 1 Tablet before bedtime. 0 Active Apixaban 5 MG Oral Tablet Take 1 Tablet by mouth in the morning and 1 Tablet before bedtime. 0 Active Ferrous Sulfate 325 (65 Fe) MG Oral Tablet (Feosol) Take 1 Tablet by mouth daily at noon. 30 Tablet 2 05/19/2023 Active Furosemide 20 MG Oral Tablet (Lasix) Take 2 Tablets by mouth in the morning and 2 Tablets before bedtime. 120 Tablet 2 05/19/2023 Active Cephalexin 500 MG Oral Capsule (Keflex) Take 1 Capsule by mouth in the morning and 1 Capsule before bedtime. Do all this for 7 days. 14 Capsule 0 11/09/2023 11/16/2023 Active Ondansetron HCl 4 MG Oral Tablet (Zofran) Take 1 Tablet by mouth every 8 hours as needed for Nausea. 20 Tablet 0 11/09/2023 Active documented as of this encounter (statuses as of 11/15/2023) Active Problems Problem Noted Date Diagnosed Date Dyspnea on exertion 05/16/2023 Acute HF (heart failure) 05/16/2023 Low hemoglobin 05/16/2023 Gout 05/16/2023 T2DM (type 2 diabetes mellitus) 05/16/2023 HTN (hypertension) 05/16/2023 History of DVT (deep vein thrombosis) 05/16/2023 Stage 3b chronic kidney disease 05/16/2023 Bilateral lower extremity edema 05/16/2023 documented as of this encounter (statuses as of 11/15/2023) Social History Tobacco Use Types Packs/Day Years Used Date Smoking Tobacco: Never Smokeless Tobacco: Never Alcohol Use Standard Drinks/Week Comments Never 0 (1 standard drink = 0.6 oz pur e alcohol) Sex and Gender Information Value Date Recorded Sex Assigned at Not on file Gender Identity Not on file Sexual Orientation Not on file Job Start Date Occupation Industry Not on file Not on file Not on file documented as of this encounter Functional Status Functional Status Response Date of Assess ment Are you deaf or do you have serious difficulty hearing? No 05/16/2023 Are you blind or do you have serious difficulty seeing, even when wearing glasses? No 05/16/2023 Do you have serious difficul ty walking or climbing stairs? (5 years old or older) Yes-doesntclimb stairs uses walker 05/16/2023 Do you have difficulty dress ing or bathing? (5 years old or older) Yes-getting in and out of tub 05/16/2023 Because of a physical, menta l, or emotional condition, do you have difficulty doing errands alone such as visiting a doctor s office or shopping? (15 years old or older) Yes-does not drive 05/16/2023 Cognitive Status Response Date of Assessm ent Because of a physical, menta l, or emotional condition, do you have serious difficulty concentrating, remembering, or making decisions? (5 years old or older) No 05/16/2023 documented as of this encounter Progress Notes * Fly Maxwell MD - 11/15/2023 10:13 AM EST Images from the original note were not included. WOUND OUTPATIENT CONSULT Yohana Rutherford is a 73 year old female seen at the request of Dr. Josue Barry PA-C for evaluation and treatment. Patient presents with a chief complaint of Wound Care HPI: Patient presents today for evaluation of buttock wounds. The wound has been present since "years". Patient thinks wound started first as boil then as pressure. Patient has been currently treating with Neosporin and SSD; using homemade cushion with folded blanket. Dressing change frequency: every day. RLE Compression: none LLE Compression: none RLE Wt Bearing Offloading: none LLE Wt Bearing Offloading: none RLE Non-Wt Bearing Offloading: none LLE Non-Wt Bearing Offloading: none Offloading Surface for Bed: none Offloading Surface for Chair / Wheelchair: none ROS: Pain: no Drainage: mild serous Swelling: no Erythema: mild gemini-wound Fever/Chills: no Malaise: no ROS was negative other than stated above. No recent/relevant imaging or SERAFIN on file Hemoglobin AIC Results: Lab Results Component Value Date/Time HEMOGLOBIN A1C - [facility] 7.8 (H) 05/17/2023 05:52 AM HEMOGLOBIN A1C - [facility] 7.0 (H) 01/03/2019 11:25 AM Lab Results Component Value Date/Time INR - [facility] 1.3 (H) 05/18/2023 11:09 AM INR - [facility] 2.00 (H) 02/11/2020 08:05 AM INR - [facility] 1.89 (H) 01/27/2020 08:11 AM No results found for: "FINGER" Estimated Glomerular Filtration Rate Date Value Ref Range Status 11/09/2023 33 (L) >=60 mL/min Final Comment: eGFR is calculated based on the CKD-EPI 2020 equation 10/22/2019 25.9 (L) >60 Final Comment: If patient is , multiply estimated GFR by 1.159. PMH: Patient Active Problem List Diagnosis Code Dyspnea on exertion R06.09 Acute HF (heart failure) ([facility]) I50.9 Low hemoglobin D64.9 Gout M10.9 T2DM (type 2 diabetes mellitus) ([facility]) E11.9 HTN (hypertension) I10 History of DVT (deep vein thrombosis) Z86.718 Stage 3b chronic kidney disease ([facility]) N18.32 Bilateral lower extremity edema R60.0 No past medical history on file. No past surgical history on file. Social History: Social History Socioeconomic History Marital status: Spouse name: Not on file Number of children: Not on file Years of education: Not on file Highest education level: Not on file Occupational History Not on file Tobacco Use Smoking status: Never Smokeless tobacco: Never Vaping Use Vaping Use: Not on file Substance and Sexual Activity Alcohol use: Never Drug use: Never Sexual activity: Not on file Other Topics Concern Not on file Social History Narrative Not on file Social Determinants of Health Financial Resource Strain: Not on file Food Insecurity: Not on file Transportation Needs: Not on file Physical Activity: Not on file Stress: Not on file Social Connections: Not on file Intimate Partner Violence: Not on file Housing Stability: Not on file Family History: No family history on file. PE: LMP (LMP Unknown) Comment: mnopausal GEN: well-nourished, NAD, awake/alert. LUNGS: No respiratory distress or audible wheezing. CARDIAC: RRR ABDOMEN: non-distended. SKIN: warm, dry, and pink WOUND ASSESSMENT: Alteration in Skin Integrity Other (comment) Left;Upper Back (Active) Alteration in Skin Integrity Moisture Associated Skin Damage Anterior;Left;Proximal;Right Groin (Active) Alteration in Skin Integrity Pressure Injury Buttock Gluteal fold (Active) Clinical Image 11/15/23 1000 Primary Dressing Present (removed today) None 11/15/23 1000 Secondary Dressing Present (removed today) None 11/15/23 1000 Tertiary Dressing Present (removed today) None 11/15/23 1000 Quaternary Dressing Present (removed today) None 11/15/23 1000 Wound Length (cm) 8 cm 11/15/23 1000 Wound Width (cm) 5 cm 11/15/23 1000 Wound Depth (cm) 0.1 cm 11/15/23 1000 Yellow Fibrinous Slough (%) none 11/15/23 1000 Granulation Tissue (%) 51-75% 11/15/23 1000 Granulation Tissue Color pale/pink 11/15/23 1000 Necrotic Tissue (%) 1-25% 11/15/23 1000 Necrotic Tissue Color Yellow 11/15/23 1000 Deep Supporting Structure Exposed None 11/15/23 1000 Drainage serous, mild 11/15/23 1000 Odor (after cleansing wound) No 11/15/23 1000 Gemini-Wound (Surrounding Skin) Hemosiderin stained;Edema;Ecchymotic;Tender 11/15/23 1000 Evidence of Infection No 11/15/23 1000 Wound Surface Area (cm^2) 40 cm^2 11/15/23 1000 Wound Volume (cm^3) 4 cm^3 11/15/23 1000 ASSESSMENT/PLAN: 1. Stage 1/2/3 pressure injuries of B/L buttock and sacrum 2. DM2 - last A1c 7.8 3. Decreased mobility 4. CKD Stage 3 Wound does not appear acutely infected Needs better offloading OK to continue Vaseline, SSD, or Neosporin to open areas Barrier cream to gemini-wound/healthy tissue Discussed Offloading: -Turn and Position q2h. -ROHO or equivalent foam cushion when using wheelchair/all sitting surfaces - Limit time in wheelchair/sitting. Plan: Durable medical equipment Follow-up: 8 weeks Fly Maxwell MD 11/15/2023 10:13 AM I spent a total of 40-54 minutes (exact time 45 mins) on the date of service in preparation, delivery, and documentation of the care provided to Yohana Rutherford excluding any time spent in the performance of separately billed services. documented in this encounter Plan of Treatment Health Maintenance Due Date Last Done Comments DXA Scan 1950 COVID-19 Vaccine (#1) 1950 Pneumococcal Vaccine: 65+ Years (1 - PCV) 1954 Depression Screening 1960 Albumin/Creatinine Ratio 1966 CKD PHOS USE SMARTSET 46174 1966 Diabetic Eye Exam 1966 Diabetic Foot Exam 1966 DTaP,Tdap,and Td Vaccines (1 - Tdap) 1967 Zoster Vaccines (1 of 2) 1998 Hepatitis B (1 of 3 - Risk 3-dose series) 2008 Influenza Vaccine (FLU shot) (#1) 2023 HbA1c 11/16/2023 05/17/2023, 01/03/2019 GFR 05/10/2024 11/09/2023, 04/28, 05/18/2023, Additional history exists CKD HGB USE SMARTSET 59581 11/09/202411/09, 11/09/2023, 05/19/2023, Additional history exists GARDASIL-HPV IMMUNIZATION SERIES Aged Out No longer eligible based on patient's age to complete this topic MENINGOCOCCAL (MENACTRA/MENVEO) Aged Out No longer eligible based on patient's age to complete this topic documented as of this encounter Medical Devices Not on filedocumented as of this encounter Visit Diagnoses Diagnosis Pressure injury of buttock, stage 3, unspecified laterality (HCC)- Primary Type 2 diabetes mellitus without complication, without long-term current use of insulin (HCC) Stage 3b chronic kidney disease (HCC) documented in this encounter Advance Directives Latest Code Status on File Code Status Date Activated Date Inactivated Comments No Code 05/16/2023 3:11 PM 05/19/2023 2:28 PM This order reflects the patients wishes and were consensually agreed upon. Question Answer Comments Discussion of Advance Directives occurred with: Patient Does the patient have a Living Will? No Does the patient have Health Care Power of Mash Tub Cooker Operator? No Code Status History Code Status Date Activated Date Inactivated Comments Full Code 05/16/2023 1:52 PM 05/16/2023 3:11 PM This order reflects the patients wishes and were consensually agreed upon. Question Answer Comments Discussion of Advance Directives occurred with: Patient Does the patient have a Living Will? No Does the patient have Health Care Power of Mash Tub Cooker Operator? No Care Teams Lumber Bearer Relationship Specialty Start Date End Date Gwen Bravo MD [address] [place] [id number] PCP - General Family Medicine 01/03/19 documented as of this encounter
--- OUTSIDE RECORDS SUMMARY | 2024-01-27 04:11 | External Medical Summary ---
Author Name Unknown Address Unknown Organization [facility] - [address] [place] [id number] Laboratory Report Ordering Provider Test Date Status ROLANDAJADYN 11/09/2023 14:58:11 Final Observation Date Value Abnormality Reference (Units ) Status Troponin T 11/09/2023 14:58:11 31 Above high normal < =14 (ng/L) Final Performing Location [facility] - [address] [place] [id number]
--- OUTSIDE RECORDS SUMMARY | 2024-01-27 04:11 | External Medical Summary ---
Author Name Unknown Address Unknown Organization [facility] - [address] [facility] [id number] Laboratory Report Ordering Provider Test Date Status JADYN ORANTES 11/09/2023 14:58:11 Final Observation Date Value Abnormality Reference (Units ) Status BUN 11/09/2023 14:58:11 22 Above high normal 6-20 (mg/dL) Final Creatinine 11/09/2023 14:58:11 1.6 Above high normal 0.5-1.0 (mg/dL) Final Glomerular filtration rate/1.73 sq M.predicted [Volume Rate/Area] in Serum, Plasma or Blood by Creatinine-based formula (CKD-EPI) 11/09/2023 14:58:11 33 Below low normal >=60 (mL/min) Final eGFR is calculated based on the CKD-EPI 2020 equation SODIUM 11/09/2023 14:58:11 126 Below low normal 135 -146 (mmol/L) Final Potassium 11/09/2023 14:58:11 4.4 3.5-5.1 (m mol/L) Final Cl 11/09/2023 14:58:11 94 Below low normal 98- 107 (mmol/L) Final CO2 11/09/2023 14:58:11 18 Below low normal 22- 32 (mmol/L) Final Anion gap 11/09/2023 14:58:11 14 7-15 (mmol /L) Final Glucose 11/09/2023 14:58:11 118 70-120 (mg /dL) Final Albumin 11/09/2023 14:58:11 3.4 Below low normal 3.8 -5.0 (g/dL) Final AST (Aspartate aminotransferase) 11/09/2023 14:58:11 25 10-35 (U/L) Fin al Result may be falsely elevat ed due to hemolysis. Alk Phos 11/09/2023 14:58:11 112 35-130 (U/ L) Final Bilirubin, Total 11/09/2023 14:58:11 0.5 <=1 .2 (mg/dL) Final Calcium 11/09/2023 14:58:11 9.3 8.4-10.2 ( mg/dL) Final Protein 11/09/2023 14:58:11 7.9 6.0-8.3 (g /dL) Final ALT (Alanine aminotransferase) 11/09/2023 14:58:11 8 Below low normal 10-35 (U/L) Final Performing Location [facility] - [address] [place] [id number]
--- OUTSIDE RECORDS SUMMARY | 2024-01-27 04:11 | External Medical Summary ---
Author Name Unknown Address Unknown Organization [facility] - [facility] [id number] Laboratory Report Ordering Provider Test Date Status JADYN ORANTES 11/09/2023 14:59:15 Final ADMITTED patient Observation Date Value Abnormality Reference (Units ) Status Adenovirus DNA [Presence] in Nasopharynx by LEONARD with non-probe detection 11/09/2023 14:59:15 Negative Negative Final Human coronavirus 229E RNA [Presence] in Nasopharynx by LEONARD with non-probe detection 11/09/2023 14:59:15 Negative Negative Final Human coronavirus HKU1 RNA [Presence] in Nasopharynx by LEONARD with non-probe detection 11/09/2023 14:59:15 Negative Negative Final Human coronavirus NL63 RNA [Presence] in Nasopharynx by LEONARD with non-probe detection 11/09/2023 14:59:15 Negative Negative Final Human coronavirus OC43 RNA [Presence] in Nasopharynx by LEONARD with non-probe detection 11/09/2023 14:59:15 Negative Negative Final SARS-CoV-2 (COVID-19) RNA [Presence] in Nasopharynx by LEONARD with non-probe detection 11/09/2023 14:59:15 Negative Negative Final Human metapneumovirus RNA [Presence] in Nasopharynx by LEONARD with non-probe detection 11/09/2023 14:59:15 Negative Negative Final Rhinovirus+Enterovirus RNA [Presence] in Nasopharynx by LEONARD with non-probe detection 11/09/2023 14:59:15 Negative Negative Final Influenza virus A RNA [Presence] in Nasopharynx by LEONARD with non-probe detection 11/09/2023 14:59:15 Negative Negative Final Influenza virus B RNA [Presence] in Nasopharynx by LEONARD with non-probe detection 11/09/2023 14:59:15 Negative Negative Final Parainfluenza virus 1 RNA [Presence] in Nasopharynx by LEONARD with non-probe detection 11/09/2023 14:59:15 Negative Negative Final Parainfluenza virus 2 RNA [Presence] in Nasopharynx by LEONARD with non-probe detection 11/09/2023 14:59:15 Negative Negative Final Parainfluenza virus 3 RNA [Presence] in Nasopharynx by LEONARD with non-probe detection 11/09/2023 14:59:15 Negative Negative Final Parainfluenza virus 4 RNA [Presence] in Nasopharynx by LEONARD with non-probe detection 11/09/2023 14:59:15 Negative Negative Final Respiratory syncytial virus RNA [Presence] in Nasopharynx by LEONARD with non-probe detection 11/09/2023 14:59:15 Negative Negative Final Bordetella pertussis.pertussis toxin promoter region [Presence] in Nasopharynx by LEONARD with non-probe detection 11/09/2023 14:59:15 Negative Negative Final Chlamydophila pneumoniae DNA [Presence] in Nasopharynx by LEONARD with non-probe detection 11/09/2023 14:59:15 Negative Negative Final Mycoplasma pneumoniae DNA [Presence] in Nasopharynx by LEONARD with non-probe detection 11/09/2023 14:59:15 Negative Negative Final Bordetella parapertussis [id number] DNA [Presence] in Nasopharynx by LEONARD with non-probe detection 11/09/2023 14:59:15 Negative Negative Final
The primers that detect Rhinovirus may cross react with some Enterorviruses. The validation of bronchial specimens, tracheal aspirates, and throats for this assay was developed and performance characteristics determined by [facility]. The validation of alternate specimen types has not been cleared or approved by the U.S. Food and Drug Administration (FDA). It has been determined that such clearance or approval is not necessary. Performing Location [address] [address]
--- OUTSIDE RECORDS SUMMARY | 2024-01-27 04:11 | External Medical Summary ---
Author Name Unknown Address Unknown Organization K1G:[facility] - [address] [place] [id number] Laboratory Report Ordering Provider Test Date Status JADYN ORANTES 11/09/2023 17:04:47 Final Observation Date Value Abnormality Reference (Units ) Status Color of Urine by Auto 11/09/2023 17:04:47 Yellow Light Yellow, Yellow, Dark Yellow Final Clarity, Urine 11/09/2023 17:04:47 Cloudy Abnormal Clear Final Glucose [Mass/volume] in Urine by Automated test strip 11/09/2023 17:04:47 Negative Negative (mg/dL) Final Bilirubin.total [Presence] in Urine by Automated test strip 11/09/2023 17:04:47 Negative Negative Final Ketones [Mass/volume] in Urine by Automated test strip 11/09/2023 17:04:47 Negative Negative (mg/dL) Final Specific gravity, Urine 11/09/2023 17:04:47 1.016 1.003-1.030 Final Hemoglobin [Presence] in Urine by Automated test strip 11/09/2023 17:04:47 Large Abnormal Negative Final pH, Urine 11/09/2023 17:04:47 5.5 5.0-7.5 (Units) Final Protein [Mass/volume] in Urine by Automated test strip 11/09/2023 17:04:47 >=300 Abnormal Negative (mg/dL) Final Urobilinogen [Mass/volume] in Urine by Automated test strip 11/09/2023 17:04:47 0.2 0.2, 1.0 (mg/dL) Final Nitrite [Presence] in Urine by Automated test strip 11/09/2023 17:04:47 Negative Negative Final Leukocyte esterase [Presence] in Urine by Automated test strip 11/09/2023 17:04:47 Small Abnormal Negative Final RBC, Urine 11/09/2023 17:04:47 3-5 Abnormal 0-2 (/HPF) Final WBC, Urine 11/09/2023 17:04:47 50+ Abnormal 0-2 (/HPF) Final Bacteria [#/area] in Urine sediment by Microscopy high power field 11/09/2023 17:04:47 >200 Abnormal 0-25 (/HPF) Final Performing Location [facility] - [address] [facility] [id number]
--- OUTSIDE RECORDS SUMMARY | 2024-01-27 04:11 | External Medical Summary | Summary of Care ---
Author Name Unknown Organization [facility] Address [address] [facility] [place] [address] Phone [phone] Care Team Providers Care Coach Professional Athletes Name Role Phone Gwen Bravo MD Primary Care Prov ider Reason for Referral * Evaluate & Treat - Unlimited Visits (Within 10 days (routine)) - Authorized Specialty Diagnoses / Procedures Referred By Contac t Referred To Contact Wound Care Diagnoses Wound of right buttock, subsequent encounter Josue Barry PA-C [address] [place] [id number] Referral ID Status Reason Start Date Expiration Date Visits Requested Visits Authorized [id number] Authorized Specialty Services Required 3 [phone] Question Answer Referral Priority Within 10 days (routine) Where should this appointment be scheduled? [facility] Comments Chronic right buttock wound Discharge Order Reason for Visit * Reason Comments Weakness, Generalized * Auth/Cert Specialty Diagnoses / Procedures Referred By Contac t Referred To Contact Referral ID Status Reason Start Date Expiration Date Visits Re quested Visits Authorized [id number] Encounter Details Date Type Department Care Team (Late st Contact Info) Description 11/09/2023 2:14 PM EST - 11/09/2023 6:23 PM EST Emergency [facility] Emergency Department ([facility]) [address] [place] [address] Zachary Latham MD [address] [facility], [facility] [place] [address] Urinary tract infection with hematuria, site unspecified (Primary Dx); Wound of right buttock, subsequent encounter Discharge Disposition: Home - Self Care Allergies No known active allergiesdocumented as of this encounter (statuses as of 11/10/2023) Medications Medication Sig Dispensed Refills Start Date [...] as of this encounter (statuses as of 11/10/2023) Active Problems Problem Noted Date Diagnosed Date Dyspnea on exertion 05/16/2023 Acute HF (heart failure) 05/16/2023 Low hemoglobin 05/16/2023 Gout 05/16/2023 T2DM (type 2 diabetes mellitus) 05/16/2023 HTN (hypertension) 05/16/2023 History of DVT (deep vein thrombosis) 05/16/2023 Stage 3b chronic kidney disease 05/16/2023 Bilateral lower extremity edema 05/16/2023 documented as of this encounter (statuses as of 11/10/2023) Social History Tobacco Use Types Packs/Day Years [...] on file documented as of this encounter Last Filed Vital Signs Vital Sign Reading Time Taken Comments Blood Pressure 148/69 11/09/2023 6:00 PM EST Pulse 83 11/09/2023 6:00 PM EST Temperature 37.3 C (99.2 F) 11/09/2023 6:00 PM ES T Respiratory Rate 21 11/09/2023 6:00 PM EST Oxygen Saturation 97% 11/09/2023 6:00 PM EST Inhaled Oxygen Concentration - - Weight 73.3 kg (161 lb 9.6 oz) 11/09/2023 2:17 P M EST Height 160 cm (5' 3") 11/09/2023 2:17 PM EST Body Mass Index 28.63 11/09/2023 2:17 PM EST documented in this encounter Functional Status Functional Status Response [...] No 05/16/2023 documented as of this encounter Discharge Instructions * Discharge Instructions* Josue Barry PA-C - 11/09/2023 5:51 PM EST You have been seen and evaluated in the Emergency Department of [facility]. Please readthe discharge instructions below regarding your care. Summary Of Today's Visit: You were seen today for weakness. You have a urinary tract infection. New Prescriptions/Medication Changes: Discharge Medications Disp Refills Start End Cephalexin 500 MG Oral Capsule (Keflex) 14 Capsule 0 11/09/2023 11/16/2023 Sig - Route: Take 1 Capsule by mouth in the morning and 1 Capsule before bedtime. Do all this for 7days. - Oral Class: ePrescribing Renewals Renewal requests to authorizing provider (Josue Barry PA-C) <b>prohibited</b> Ondansetron HCl 4 MG Oral Tablet (Zofran) 20 Tablet 0 11/09/2023 -- Sig - Route: Take 1 Tablet by mouth every 8 hours as needed for Nausea. - Oral Class: ePrescribing Renewals Renewal requests to authorizing provider (Josue Barry PA-C) <b>prohibited</b> Follow Up/Continuation Of Care: Please follow-up with your family doctor as needed. Please follow-up with your wound care referral for your chronic buttock wound. Other Important Information/Return Instructions: Return to the Emergency Department or seek medical attention if you notice or have worsening of anyof the following problems: severe headache , changes in your vision, feel like you may pass out, chest pain, chest pressure, chest tightness, difficulty breathing, uncontrolled bleeding, or any worsening of your condition. Thank you for allowing us to care for you. Our goal is to provide you the best care. If you have any emergency needs in the future we will be glad to help you again. We are here to serve you! documented in this encounter ED Notes * Makenna Basurto RN - 11/09/2023 2:23 PM EST Pt presents to ED with c/o generalized weakness for 2 days, last time she felt this way she was anemic. Pt has a wound on her bottom. documented in this encounter Miscellaneous Notes * Pt Handout (on AVS) - Josue Barry PA-C - 11/09/2023 5:48 PM EST Images from the original note were not included. [id number] Urinary Tract Infections in Women Urinary tract infections (UTIs) are most often caused by bacteria. These bacteria enter the urinarytract. The bacteria may come from inside the body. Or they may travel from the skin outside the rectum or vagina into the urethra. Female anatomy makes it easy for bacteria from the bowel to enter a person?s urinary tract. This is the most common source of UTIs. This means women develop UTIs more often than men. Pain in or around the urinary tract is a common UTI symptom. But the only way to know for sure if you have a UTI is for the healthcare provider to test your pee. The two tests that may be done are the urinalysis and urine culture. These tests tell your provider if you have a UTI and what type of bacteria is causing it. Gender words are used here to talk about anatomy and health risk. Please use this information in a way that works best for you and your provider as you talk about your care. Types of UTIs Cystitis. A bladder infection (cystitis) is the most common UTI in women. You may have an urgentor frequent need to pee. You may also have pain, burning when you pee, and bloody urine. Urethritis. This is an inflamed urethra. This is the tube that carries urine from the bladder tooutside the body. You may have lower stomach or back pain. You may also have an urgent or frequent need to pee. Pyelonephritis. This is a kidney infection. It can be serious and damage your kidneys if not treated. You may need to stay in the hospital in severe cases. You may have a fever and lower back pain. Medicines to treat a UTI Most UTIs are treated with antibiotics. These kill the bacteria. The length of time you need to take them depends on the type of infection. It may be as short as 3 days. You may need a low-dose antibiotic for several months if you have repeated UTIs. Take antibiotics exactly as directed. Don?t stoptaking them until all of the medicine is gone, even if you feel better. The infection may not go away fully and return if you stop taking the antibiotic too soon. You may also develop a resistance tothe antibiotic. This can make it much harder to treat. Lifestyle changes to treat and prevent UTIs The lifestyle changes below will help get rid of your UTI. They may also help prevent future UTIs. Drink plenty of fluids. This includes water, juice, or other caffeine-free drinks. Fluids help flush bacteria out of your body. Empty your bladder. Always empty your bladder when you feel the urge to pee. And always pee before going to sleep. Urine that stays in your bladder can lead to infection. Try to pee before and after sex as well. Practice good personal hygiene. Wipe yourself from front to back after using the toilet. This helps keep bacteria from getting into the urethra. Wear cotton underwear. Don't wear synthetic or tight-fitting underwear that can trap moisture. Change out of wet bathing suits and workout clothing quickly. Take showers. Showers are better than baths for preventing UTIs. Use condoms during sex. These help prevent UTIs caused by sexually transmitted bacteria. Also don't use spermicides during sex. These can increase the risk for UTIs. Choose other forms of control instead. A low dose of a preventive antibiotic may be used for women who tend to get UTIs after sex. Be sure to discuss this choice with your healthcare provider. Follow up with your healthcare provider as directed. They may test to make sure the infection has cleared. If needed, more treatment may be started. Last Reviewed Date: 06/27/202319990863-1570 [employer]. All rights reserved. This information is not intended as a substitute for professional medical care. Always follow your healthcare professional's instructions. * ED Personal Trainer Note - Makenna Basurto RN - 11/09/2023 5:36 PM EST Vegetable soup ordered for patient per her request and okay per Josue HARRINGOTN. * ED Personal Trainer Note - Maribel Benton RN - 11/09/2023 3:10 PM EST Radiology at bedside performing portable chest x-rays. documented in this encounter Plan of Treatment Pending Results Name Type Priority Associated Diagnoses Date /Time CULTURE, URINE, QUANTITATIVE Lab STAT 11/09/2023 5:59 PM EST Scheduled Orders Name Type Priority Associated Diagnoses Orde r Schedule EKG EKG STAT One Time for 1 Occurrences starting 11/09/2023 until 11/09/2023 CULTURE, URINE, QUANTITATIVE Lab STAT Perform Now for 1 Occurrences starting 11/09/2023 until 11/09/2023 Scheduled Referrals Name Type Priority Associated Diagnoses Orde r Schedule WOUND CARE REFERRAL OP Referral Within 10 days (routine) Wound of right buttock, subsequent encounter Ordered: 11/09/2023 Health Maintenance Due Date Last Done Comments DXA Scan 1950 COVID-19 Vaccine (#1) 1950 Pneumococcal Vaccine: 65+ Years (1 - PCV) 1954 Depression Screening 1960 Albumin/Creatinine Ratio 1966 Diabetic Eye Exam 1966 Diabetic Foot Exam 1966 DTaP,Tdap,and Td Vaccines (1 - Tdap) 1967 Zoster Vaccines (1 of 2) 1998 Hepatitis B (1 of 3 - Risk 3-dose series) 2008 Influenza Vaccine (FLU shot) (#1) 2023 HbA1c 11/16/2023 05/17/2023, 01/03/2019 GFR 05/10/2024 11/09/2023, 04/28, 05/18/2023, Additional history exists GARDASIL-HPV IMMUNIZATION SERIES Aged Out No longer eligible based on patient's age to complete this topic MENINGOCOCCAL (MENACTRA/MENVEO) Aged Out No longer eligible based on patient's age to complete this topic documented as of this encounter Medical Devices Not on filedocumented as of this encounter Procedures Procedure Name Priority Date/Time Associated Diagnosis Comments URINALYSIS WITH MICROSCOPIC EXAM STAT 11/09/2023 5:04 PM EST LACTATE,WHOLE BLOOD Routine 11/09/2023 4 :40 PM EST TROPONIN T, HIGH SENSITIVITY STAT 11/09/2023 4:08 PM EST XR CHEST 1 VIEW STAT 11/09/2023 3:16 PM EST RESPIRATORY PATHOGEN PANEL, PCR STAT 11/09/2023 2:59 PM EST DIFFERENTIAL, AUTOMATED STAT 11/09/2023 2:58 PM EST TROPONIN T, HIGH SENSITIVITY STAT 11/09/2023 2:58 PM EST COMPREHENSIVE METABOLIC PANEL STAT 11/09/2023 2:58 PM EST CBC STAT 11/09/2023 2:58 PM EST CBC STAT 11/09/2023 2:58 PM EST MAGNESIUM STAT 11/09/2023 2:58 PM EST EXTRA LIGHT BLUE TOP Routine 11/09/2023 2:28 PM EST EXTRA TUBES Routine 11/09/2023 2:28 PM EST documented in this encounter Results * (ABNORMAL) URINALYSIS WITH MICROSCOPIC EXAM (11/09/2023 5:04 PM EST) Color, Urine Yellow Light Yellow, Yellow, Dark Yellow 11/09/2023 5:25 PM EST [facility] Clarity, Urine Cloudy(A) Clear 11/09/2023 5:25 PM EST [facility] Glucose, Urine Negative Negative mg/dL 11/09/2023 5:25 PM EST [facility] Bilirubin, Urine Negative Negative 11/09/2023 5:25 PM EST [facility] Ketone, Urine Negative Negative mg/dL 11/09/2023 5:25 PM EST [facility] Specific Chavies, Urine 1.016 1.003 - 1.030 11/09/2023 5:25 PM EST [facility] Blood, Urine Large(A) Negative 11/09/2023 5:25 PM EST [facility] pH, Urine 5.5 5.0 - 7.5 Units 11/09/2023 5:25 PM EST [facility] Protein, Urine >=300(A) Negative mg/dL 11/09/2023 5:25 PM EST [facility] Urobilinogen, Urine 0.2 0.2, 1.0 mg/dL 11/09/2023 5:25 PM EST [facility] Nitrite, Urine Negative Negative 11/09/2023 5:25 PM EST [facility] Esterase, Urine Small(A) Negative 11/09/2023 5:25 PM EST [facility] RBC, Urine 3-5(A) 0 - 2 /HPF 11/09/2023 5:25 PM EST [facility] WBC, Urine 50+(A) 0 - 2 /HPF 11/09/2023 5:25 PM EST [facility] Bacteria, Urine >200(A) 0 - 25 /HPF 11/09/2023 5:25 PM EST [facility] Urine Non-blood Collection / Unknown 11/09/2023 5:04 PM EST 11/09/2023 5:19 PM EST Josue Barry PA-C LAB URINE ORDERA BLES Performing Organization Address City/[facility]/ZIP Co de Phone Number LABORATORY [address] [address] * LACTATE,WHOLE BLOOD (11/09/2023 4:40 PM EST) Lactate, Whole Blood 0.5 0.4 - 2.0 mmol/L 11/09/2023 4:54 PM EST [facility] Blood Venous blood specimen / Unknown Venipuncture / Unknown 11/09/2023 4:40 PM EST 11/09/2023 4:49 PM EST Josue Barry PA-C LAB BLOOD ORDERA BLES Performing Organization Address City/[facility]/ZIP Co de Phone Number LABORATORY [address] [address] * (ABNORMAL) TROPONIN T, HIGH SENSITIVITY (11/09/2023 4:08 PM EST) Troponin T, High Sensitivity 30(H) <=14 ng/L 11/09/2023 5:01 PM EST [facility] Blood Venous blood specimen / Unknown Venipuncture / Unknown 11/09/2023 4:08 PM EST 11/09/2023 4:13 PM EST Josue Barry PA-C LAB BLOOD ORDERA BLES LAB[facility] [place] [id number] [place] [address] * XR CHEST 1 VIEW (11/09/2023 3:16 PM EST) Anatomical Region Laterality Modality Chest Computed Radiogr aphy 11/09/2023 3:13 PM EST Impressions 11/09/2023 3:28 PM EST IMPRESSION: 1. No focal infiltrate. 2. Mild blunting of the left costophrenic sulcus is suggestive of pleural thickening or a small pleural effusion. THIS DOCUMENT HAS BEEN ELECTRONICALLY SIGNED BY INGA PETERSON MD Narrative 11/09/2023 3:28 PM EST PROCEDURE INFORMATION: Exam: XR Chest Exam date and time: 11/09/2023 3:13 PM Age: 73 years old Clinical indication: Cough and fever; Additional info: Cough, fever TECHNIQUE: Imaging protocol: Radiologic exam of the chest. Views: 1 view. COMPARISON: DX XR CHEST 1 VIEW 05/16/2023 12:08 PM FINDINGS: Lungs: Lung volumes are diminished. No focal infiltrate. Pleural spaces: Mild blunting of the left costophrenic sulcus is suggestive of pleural thickening or a small pleural effusion. Heart/Mediastinum: No cardiac enlargement. Bones/joints: Degenerative and hypertrophic changes of the visualized osseous structures. Organs: Surgical clips are seen in the gallbladder fossa. Procedure Note Inga Peterson MD - 11/09/2023 PROCEDURE INFORMATION: Exam: XR Chest Exam date and time: 11/09/2023 3:13 PM Age: 73 years old Clinical indication: Cough and fever; Additional info: Cough, fever TECHNIQUE: Imaging protocol: Radiologic exam of the chest. Views: 1 view. COMPARISON: DX XR CHEST 1 VIEW 05/16/2023 12:08 PM FINDINGS: Lungs: Lung volumes are diminished. No focal infiltrate. Pleural spaces: Mild blunting of the left costophrenic sulcus issuggestive of pleural thickening or a small pleural effusion. Heart/Mediastinum: No cardiac enlargement. Bones/joints: Degenerative and hypertrophic changes of the visualizedosseous structures. Organs: Surgical clips are seen in the gallbladder fossa. IMPRESSION IMPRESSION: 1. No focal infiltrate. 2. Mild blunting of the left costophrenic sulcus is suggestive ofpleural thickening or a small pleural effusion. THIS DOCUMENT HAS BEEN ELECTRONICALLY SIGNED BY INGA PETERSON MD Josue Barry PA-C RADIOLOGY (RAD G ENERAL) * RESPIRATORY PATHOGEN PANEL, PCR (11/09/2023 2:59 PM EST) Adenovirus by PCR Negative Negative 023 4:14 PM EST [facility] Coronavirus 229E by PCR Negative Negative 11/09/2023 4:14 PM EST [facility] Coronavirus HKU1 by PCR Negative Negative 11/09/2023 4:14 PM EST [facility] Coronavirus NL63 by PCR Negative Negative 11/09/2023 4:14 PM EST [facility] Coronavirus OC43 by PCR Negative Negative 11/09/2023 4:14 PM EST [facility] Coronavirus SARS-CoV-2 by PCR Negative Negative 11/09/2023 4:14 PM EST [facility] Human Metapneumovirus by PCR Negative Negative 11/09/2023 4:14 PM EST [facility] Rhinovirus/Enterovi anil by PCR Negative Negative 11/09/2023 4:14 PM EST [facility] Influenza A Virus by PCR Negative Negative 11/09/2023 4:14 PM EST [facility] Influenza B Virus by PCR Negative Negative 11/09/2023 4:14 PM EST [facility] Parainfluenza Virus 1 by PCR Negative Negative 11/09/2023 4:14 PM EST [facility] Parainfluenza Virus 2 by PCR Negative Negative 11/09/2023 4:14 PM EST [facility] Parainfluenza Virus 3 by PCR Negative Negative 11/09/2023 4:14 PM EST [facility] Parainfluenza Virus 4 by PCR Negative Negative 11/09/2023 4:14 PM EST [facility] Respiratory Syncytial Virus by PCR Negative Negative 11/09/2023 4:14 PM EST [facility] Bordetella pertussis by PCR Negative Negative 11/09/2023 4:14 PM EST [facility] Chlamydia pneumoniae by PCR Negative Negative 11/09/2023 4:14 PM EST [facility] Mycoplasma pneumoniae by PCR Negative Negative 11/09/2023 4:14 PM EST [facility] Bordetella parapertussis by PCR Negative Negative 11/09/2023 4:14 PM EST [facility] Comment: The primers that detect Rhinovirus may cross react with some Enterorviruses. The validation of bronchial specimens, tracheal aspirates, and throats for this assay was developed and performance characteristics determined by [employer]. The validation of alternate specimen types has not been cleared or approved by the U.S. Food and Drug Administration (FDA). It has been determined that such clearance or approval is not necessary. Upper Respiratory Mid-turbinate nasal swab / Unknown Non-blood Collection / Unknown 11/09/2023 2:59 PM EST 11/09/2023 3:21 PM EST Josue Barry PA-C LAB MICRO - GENE RAL ORDERABLES LABORATORY [address] [address] * (ABNORMAL) DIFFERENTIAL, AUTOMATED (11/09/2023 2:58 PM EST) WBC 9.74 4.00 - 10.80 K/uL 11/09/2023 3:29 PM EST [facility] Neutrophils % 88.6(H) 40.0 - 75.0 % 11/09/2023 3:29 PM EST [facility] Lymphocytes % 5.4(L) 18.0 - 42.0 % 11/09/2023 3:29 PM EST [facility] Monocytes % 5.6 1.0 - 11.0 % 11/09/2023 3:29 PM EST [facility] Eosinophils % 0.1 0.0 - 6.0 % 11/09/2023 3:29 PM EST [facility] Basophils % 0.3 0.0 - 2.0 % 11/09/2023 3:29 PM EST [facility] Absolute Neutrophils 8.62(H) 1.80 - 7.70 K/uL 11/09/2023 3:29 PM EST [facility] Absolute Lymphocytes 0.53(L) 1.00 - 4.80 K/ul 11/09/2023 3:29 PM EST [facility] Absolute Monocytes 0.55 0.00 - 1.10 K/uL 11/09/2023 3:29 PM EST [facility] Absolute Eosinophils 0.01 0.00 - 0.70 K/uL 11/09/2023 3:29 PM EST [facility] Absolute Basophils 0.03 0.00 - 0.20 K/uL 11/09/2023 3:29 PM EST [facility] Blood Venous blood specimen / Unknown Venipuncture / Unknown 11/09/2023 2:58 PM EST 11/09/2023 3:21 PM EST Josue Barry PA-C LAB BLOOD ORDERA BLES [facility] [place] [id number] [place] [address] * (ABNORMAL) CBC (11/09/2023 2:58 PM EST) WBC 9.74 4.00 - 10.80 K/uL 11/09/2023 3:29 PM EST [facility] RBC 3.16 3.85 - 5.15 M/uL 11/09/2023 3:29 PM EST [facility] HGB 8.2(L) 12.0 - 15.3 g/dL 11/09/2023 3:29 PM EST [facility] HCT 26.9(L) 36.0 - 45.2 % 11/09/2023 3:29 PM EST [facility] MCV 85.1 81.5 - 97.5 fL 11/09/2023 3:29 PM EST [facility] MCH 25.9 27.0 - 34.0 pg 11/09/2023 3:29 PM EST [facility] MCHC 30.5 32.0 - 36.0 g/dL 11/09/2023 3:29 PM EST [facility] RDW 14.5 11.5 - 15.5 % 11/09/2023 3:29 PM EST [facility] PLT 384 140 - 400 K/uL 11/09/2023 3:29 PM EST [facility] MPV 8.5 6.6 - 11.1 fL 11/09/2023 3:29 PM EST [facility] Blood Venous blood specimen / Unknown Venipuncture / Unknown 11/09/2023 2:58 PM EST 11/09/2023 3:21 PM EST Josue HARRINGTON-C LAB BLOOD ORDERA BLES Performing Organization Address [facility]/ZIP Co de Phone Number LABORATORY [address] [address] * (ABNORMAL) TROPONIN T, HIGH SENSITIVITY (11/09/2023 2:58 PM EST) Troponin T, High Sensitivity 31(H) <=14 ng/L 11/09/2023 3:47 PM EST [facility] Blood Venous blood specimen / Unknown Venipuncture / Unknown 11/09/2023 2:58 PM EST 11/09/2023 3:21 PM EST Josue HARRINGTON-C LAB BLOOD ORDERA BLES Performing Organization Address [facility]/ZIP Co de Phone Number LABORATORY [address] [address] * MAGNESIUM (11/09/2023 2:58 PM EST) Magnesium 1.6 1.5 - 2.6 mg/dL 11/09/2023 3:47 PM EST [facility] Blood Venous blood specimen / Unknown Venipuncture / Unknown 11/09/2023 2:58 PM EST 11/09/2023 3:21 PM EST Josue HARRINGTON-C LAB BLOOD ORDERA BLES LAB[facility]AT[facility] [address] [place] [address] * (ABNORMAL) COMPREHENSIVE METABOLIC PANEL (11/09/2023 2:58 PM EST) BUN 22(H) 6 - 20 mg/dL 11/09/2023 3:47 PM EST [facility] Creatinine 1.6(H) 0.5 - 1.0 mg/dL 11/09/2023 3:47 PM EST [facility] Estimated Glomerular Filtration Rate 33(L) >=60 mL/min 11/09/2023 3:47 PM EST [facility] Comment:eGFR is calculated b ased on the CKD-EPI 2020 equation Sodium 126(L) 135 - 146 mmol/L 11/09/2023 3:47 PM EST [facility] Potassium 4.4 3.5 - 5.1 mmol/L 11/09/2023 3:47 PM EST [facility] Chloride 94(L) 98 - 107 mmol/L 11/09/2023 3:47 PM EST [facility] CO2 18(L) 22 - 32 mmol/L 11/09/2023 3:47 PM EST [facility] Anion Gap 14 7 - 15 mmol/L 11/09/2023 3:47 PM EST [facility] Glucose 118 70 - 120 mg/dL 11/09/2023 3:47 PM EST [facility] Albumin 3.4(L) 3.8 - 5.0 g/dL 11/09/2023 3:47 PM EST [facility] AST 25 10 - 35 U/L 11/09/2023 3:47 PM EST [facility] Comment:Result may be falsel y elevated due to hemolysis. Alkaline Phosphatase 112 35 - 130 U/L 11/09/2023 3:47 PM EST [facility] Bilirubin, Total 0.5 <=1.2 mg/dL 11/09/2023 3:47 PM EST [facility] Calcium 9.3 8.4 - 10.2 mg/dL 11/09/2023 3:47 PM EST [facility] Protein 7.9 6.0 - 8.3 g/dL 11/09/2023 3:47 PM EST [facility] ALT 8(L) 10 - 35 U/L 11/09/2023 3:47 PM EST [facility] Blood Venous blood specimen / Unknown Venipuncture / Unknown 11/09/2023 2:58 PM EST 11/09/2023 3:21 PM EST Josue Barry PA-C LAB BLOOD ORDERA BLES Performing Organization Address City/[facility]/ZIP Co de Phone Number LABORATORY [address] [address] * EXTRA LIGHT BLUE TOP (11/09/2023 2:28 PM EST) Blood Venous blood specimen / Unknown Venipuncture / Unknown 11/09/2023 2:28 PM EST 11/09/2023 3:23 PM EST Zachary Latham MD LAB BLOOD ORDERABLES Performing Organization Address [facility]/ZIP Co de Phone Number LABORATORY [address] [address] documented in this encounter Visit Diagnoses Diagnosis Urinary tract infection with hematuria, site unspecified- Primary Wound of right buttock, subsequent encounter documented in this encounter Administered Medications Inactive Administered Medications - up to 3 most recent administrations Medication Order MAR Action Action Date Dose Rate Site Acetaminophen (Tylenol) tab 650 mg 650 mg, Oral, ONCE, On Josie 11/09/23 at 1530, For 1 dose, Maximum of 4 grams (4000 mg) per day. Given 11/09/2023 3:18 PM EST 650 mg Cephalexin (Keflex) cap 500 mg 500 mg, Oral, ONCE, On Josie 11/09/23 at 1830, For 1 dose Given 11/09/2023 5:59 PM EST 500 mg NSS 0.9% 500 mL bolus infusion Intravenous, at 500 mL/hr Administer over 60 Minutes, Wide open, This infusion may be completed in less than 1 hour, since it will be a wide open rate, ONCE, 1 dose, On Josie 11/09/23 at 1530 New Bag 11/09/2023 3:27 PM EST 500 mL 500 mL/hr NSS 0.9% 500 mL bolus infusion Intravenous, at 500 mL/hr Administer over 60 Minutes, Wide open, This infusion may be completed in less than 1 hour, since it will be a wide open rate, ONCE, 1 dose, On Josie 11/09/23 at 1630 New Bag 11/09/2023 4:46 PM EST 500 mL 500 mL/hr documented in this encounter Active and Recently Administered Medications Times are shown in EST. Scheduled Medication Order 11/07/2023 11/08/2023 11/09/2023 Acetaminophen (Tylenol) tab 650 mg (COMPLETED) 650 mg, Oral, ONCE, On Josie 11/09/23 at 1530, For 1 dose, Maximum of 4 grams (4000 mg) per day. 1518 (Given - Provid er: Makenna Basurto RN) Cephalexin (Keflex) cap 500 mg (COMPLETED) 500 mg, Oral, ONCE, On Josie 11/09/23 at 1830, For 1 dose 1759 (Given - Provid er: Makenna Basurto RN) NSS 0.9% 500 mL bolus infusion (COMPLETED) Intravenous, at 500 mL/hr Administer over 60 Minutes, Wide open, This infusion may be completed in less than 1 hour, since it will be a wide open rate, ONCE, 1 dose, On Josie 11/09/23 at 1530 1527 (New Bag - Prov ider: Makenna Basurto RN)1615 (Stopped - Provider: Maribel Benton RN) NSS 0.9% 500 mL bolus infusion (COMPLETED) Intravenous, at 500 mL/hr Administer over 60 Minutes, Wide open, This infusion may be completed in less than 1 hour, since it will be a wide open rate, ONCE, 1 dose, On Josie 11/09/23 at 1630 1646 (New Bag - Prov ider: Makenna Basurto RN)1758 (Stopped - Provider: Makenna Basurto RN) documented in this encounter Additional Health Concerns Infection Onset Date Last Indicated Resolved Time Respiratory Rule-Out 11/09/2023 11/09/2023 023 4:14 PM EST COVID-19 Rule-Out 11/09/2023 11/09/2023 11/09/2023 4:14 PM EST documented as of this encounter Advance Directives Latest Code Status on File Code Status Date Activated Date Inactivated Comments No Code 05/16/2023 3:11 PM 05/19/2023 2:28 PM This order reflects the patients wishes and were consensually agreed upon. Question Answer Comments Discussion of Advance Directives occurred with: Patient Does the patient have a Living Will? No Does the patient have Health Care Power of Technical Director? No Code Status History Code Status Date Activated Date Inactivated Comments Full Code 05/16/2023 1:52 PM 05/16/2023 3:11 PM This order reflects the patients wishes and were consensually agreed upon. Question Answer Comments Discussion of Advance Directives occurred with: Patient Does the patient have a Living Will? No Does the patient have Health Care Power of Technical Director? No Care Teams Coach Professional Athletes Relationship Specialty Start Date End Date Gwen Bravo MD [address] [place] [address] PCP - General Family Medicine 01/03/19 documented as of this encounter
--- OUTSIDE RECORDS SUMMARY | 2024-01-27 04:11 | External Medical Summary ---
Author Name Unknown Address Unknown Organization K1G:LABORATORY [facility] - [address] [place] [phone] Laboratory Report Ordering Provider Test Date Status ROLANDAJADYN 11/09/2023 16:08:27 Final Observation Date Value Abnormality Reference (Units ) Status Troponin T 11/09/2023 16:08:27 30 Above high normal < =14 (ng/L) Final Performing Location [facility]ATORY [facility] - [address] [place] [phone]
--- OUTSIDE RECORDS SUMMARY | 2024-01-27 04:11 | External Medical Summary ---
Author Name Unknown Address Unknown Organization K01:LABORATORY [facility] - [address] [facility] [address] Laboratory Report Ordering Provider Test Date Status JADYN ORANTES 11/09/2023 17:59:24 Final <10,000 colonies/ml mixed no rmal jaden Observation Date Value Abnormality Reference (Units ) Status Bacteria identified in Specimen by Culture 11/09/2023 17:59:24 [id number]^ESCHE RICHIA COLI Abnormal Final >100,000 colonies/mL Escheri mellisa coli Performing Location LABORATORY [facility] - [address] [place] [address] Ordering Provider Test Date Status JADYN ORANTES 11/09/2023 17:59:24 Final Observation Date Value Abnormality Reference (Units ) Status Ampicillin 11/09/2023 17:59:24 4 Susceptible Final Cefazolin 11/09/2023 17:59:24 <=4 Susceptible Final Cefepime susceptibility 11/09/2023 17:59:24 <=1 Susceptible Final Ceftriaxone suceptibility 11/09/2023 17:59:24 <=1 Susceptible Final Ciprofloxacin 11/09/2023 17:59:24 <=0.25 Susceptible Final Due to serious side effects, the FDA has advised against using Ciprofloxacin to treat uncomplicated UTIs and respiratory tract infections unless there are no alternative treatment options. Gentamicin susceptibility 11/09/2023 17:59:24 <=1 Susc eptible Final Nitrofurantoin susceptibility 11/09/2023 17:59:24 <=16 Susceptible Final Piperacillin + Tazobactamsusceptibility 11/09/2023 17:59:24 <=4 Susceptible Final TMP-SMZ susceptibility 11/09/2023 17:59:24 <=20 Suscept ible Final Test: Culture, Urine, Quanti tative
Specimen Source: Urine, Clean Catch
Specimen Type: Urine
Specimen Date: 11/09/2023 5:59 PM
Result Date: 11/12/2023 7:37 AM
Result Status: Final result
Abnormal: Yes
Resulting Lab: [facility]ATORY [facility] [place]
[address]
[facility] [address]

CULTURE

>100,000 colonies/mL Escherichia coli (Abnormal)

<10,000 colonies/ml mixed normal jaden

SUSCEPTIBILITY

Escherichia coli
METHOD MICROBROTH DILUTIONS

AMPICILLIN 4 Susceptible
CEFAZOLIN <=4 Susceptible
CEFEPIME <=1 Susceptible
CEFTRIAXONE <=1 Susceptible
CIPROFLOXACIN <=0.25 Susceptible [1]
GENTAMICIN <=1 Susceptible
NITROFURANTOIN <=16 Susceptible
PIPERACILLIN TAZOBACTAM <=4 Susceptible
TRIMETH/SULFAMETHOXAZOLE <=20 Susceptible

[1] Due to serious side effects, the FDA has advised against using
Ciprofloxacin to treat uncomplicated UTIs and respiratory tract infections
unless there are no alternative treatment options.

null Performing Location LABORATORY [facility] - [address] [facility] [address]
--- OUTSIDE RECORDS SUMMARY | 2024-01-27 04:11 | External Medical Summary | Summary of Care ---
Author Name Unknown Organization [facility] Address [address] [place] [address] Phone [phone] Care Team Providers Care Office Machines Sales Representative Name Role Phone Gwen Bravo MD Primary Care Prov ider Reason for Visit * Reason Comments Wound Care * Evaluate & Treat - Unlimited Visits (Within 10 days (routine)) - Authorized Specialty Diagnoses / Procedures Referred By Contac t Referred To Contact Wound Care Diagnoses Wound of right buttock, subsequent encounter Josue Barry PA-C [address] [place] [address] Referral ID Status Reason Start Date Expiration Date Visits Requested Visits Authorized [id number] Authorized Specialty Services Required 3 [phone] Encounter Details Date Type Department Care Team (Late st Contact Info) Description 11/15/2023 11:10 AM EST Office Visit Wound Care, [place] [address] [place] [address] Fly Maxwell MD [address] [place], [place] [phone] Pressure injury of buttock, stage 3, unspecified [...] on exertion R06.09 Acute HF (heart failure) ([facility]) I50.9 Low hemoglobin D64.9 Gout M10.9 T2DM (type 2 diabetes mellitus) ([facility]) E11.9 HTN (hypertension) I10 History of DVT (deep vein thrombosis) Z86.718 Stage 3b chronic kidney disease ([facility]) N18.32 Bilateral lower extremity edema R60.0 No [...] separately billed services. documented in this encounter Nursing Notes * Alma Tse LPN - 11/15/2023 11:08 AM EST Patient refused dressing to sacrum. documented in this encounter Plan of Treatment Health Maintenance Due Date Last Done Comments DXA Scan 1950 COVID-19 Vaccine (#1) 1950 Pneumococcal Vaccine: 65+ Years (1 - PCV) 1954 Depression Screening 1960 Albumin/Creatinine Ratio 1966 CKD PHOS USE SMARTSET 66536 1966 Diabetic Eye Exam 1966 Diabetic Foot Exam 1966 DTaP,Tdap,and Td Vaccines (1 - Tdap) 1967 Zoster Vaccines (1 of 2) 1998 Hepatitis B (1 of 3 - Risk 3-dose series) 2008 Influenza Vaccine (FLU shot) (#1) 2023 HbA1c 11/16/2023 05/17/2023, 01/03/2019 GFR 05/10/2024 11/09/2023, 04/28, 05/18/2023, Additional history exists CKD HGB USE SMARTSET 57567 11/09/202411/09, 11/09/2023, 05/19/2023, Additional history exists GARDASIL-HPV [...] the patient have Health Care Power of Extract Wringer? No Code Status History Code Status Date Activated Date Inactivated Comments Full Code 05/16/2023 1:52 PM 05/16/2023 3:11 PM This order reflects the patients wishes and were consensually agreed upon. Question Answer Comments Discussion of Advance Directives occurred with: Patient Does the patient have a Living Will? No Does the patient have Health Care Power of Extract Wringer? No Care Teams Office Machines Sales Representative Relationship Specialty Start Date End Date Gwen Bravo MD [address] [place] [address] PCP - General Family Medicine 01/03/19 documented as of this encounter
--- OUTSIDE RECORDS SUMMARY | 2024-01-27 04:11 | External Medical Summary ---
Author Name Unknown Address Unknown Organization K1G:LABORATORY [facility] - [address] [facility] [id number] Laboratory Report Ordering Provider Test Date Status JADYN ORANTES 11/09/2023 14:58:11 Final Observation Date Value Abnormality Reference (Units ) Status SYNC LEUKOCYTES IN BLOOD BY AUTOMATED COUNT 11/09/2023 14:58:11 9.74 4.00-10.80 (K/uL) Final Segs 11/09/2023 14:58:11 88.6 Above high normal 40.0-75.0 (%) Final Lymphs % 11/09/2023 14:58:11 5.4 Below low normal 18.0-42.0 (%) Final Monos 11/09/2023 14:58:11 5.6 1.0-11.0 (%) Final Eosinophils 11/09/2023 14:58:11 0.1 0.0-6.0 (%) Final Basos 11/09/2023 14:58:11 0.3 0.0-2.0 (%) Final Absolute Segs 11/09/2023 14:58:11 8.62 Above high normal 1.80-7.70 (K/uL) Final Lymphs, absolute 11/09/2023 14:58:11 0.53 Below low normal 1.00-4.80 (K/ul) Final Monos, Abs 11/09/2023 14:58:11 0.55 0.00-1.10 (K/uL) Final Eos, Abs 11/09/2023 14:58:11 0.01 0.00-0.70 (K/uL) Final Basos, Abs 11/09/2023 14:58:11 0.03 0.00-0.20 (K/uL) Final Performing Location LABORATORY [facility] - [address] [facility] [id number]
--- OUTSIDE RECORDS SUMMARY | 2024-01-27 04:11 | External Medical Summary ---
Author Name Unknown Address Unknown Organization K1G:LABORATORY [facility] - [address] [place] [phone] Laboratory Report Ordering Provider Test Date Status JADYN ORANTES 11/09/2023 14:58:11 Final Observation Date Value Abnormality Reference (Units ) Status WBC, Total 11/09/2023 14:58:11 9.74 4.00-10.8 0 (K/uL) Final RBC 11/09/2023 14:58:11 3.16 3.85-5.15 (M/uL) Final Hemoglobin 11/09/2023 14:58:11 8.2 Below low normal 12 .0-15.3 (g/dL) Final HCT 11/09/2023 14:58:11 26.9 Below low normal 36. 0-45.2 (%) Final MCV 11/09/2023 14:58:11 85.1 81.5-97.5 (fL) Final MCH 11/09/2023 14:58:11 25.9 27.0-34.0 (pg) Final MCHC 11/09/2023 14:58:11 30.5 32.0-36.0 (g/dL) Final RDW 11/09/2023 14:58:11 14.5 11.5-15.5 (%) Final Platelets 11/09/2023 14:58:11 384 140-400 (K /uL) Final MPV 11/09/2023 14:58:11 8.5 6.6-11.1 ( fL) Final Performing Location LABORATORY [facility] - [address] [place] [phone]
[2024-01-27 06:33] LABS: Hematocrit (blood only) 24.6 % (37.0-47.0); Hemoglobin 7.6 g/dl (12.0-16.0); Mean Corpuscular Hemoglobin 24.7 pg (25.0-34.0); Mean Corpuscular Hgb Conc 30.9 g/dL (32.0-36.0); Mean Corpuscular Volume 79.9 fL (80.0-100.0); Mean Platelet Volume 8.9 fL (9.4-12.4); Platelet Count 302 K/uL (130-400); RDW Coefficient of Variation 14.7 % (11.5-14.5); RDW Standard Deviation 42.8 fL (36.4-46.3); Red Blood Count 3.08 M/uL (4.20-5.40)
[2024-01-27 06:56] LABS: BUN Creatinine Ratio 15.5 (10-20); Calcium 8.2 mg/dl (8.6-10.3); Creatinine Clr Calc Pharmacy 24.6 ml/min; Est GFR (African American) 29.9 ml/min; Est GFR (Non-African American) 25.8 ml/min; Potassium 4.2 mmol/L (3.5-5.1)
[2024-01-27 07:24] LABS: Basophils # (auto) 0.01 K/uL (0.00-0.20); Basophils % (auto) 0.1 %; Immature Granulocytes % (auto) 0.7 %; Lymphocytes # (auto) 0.36 K/uL (1.20-3.40); Lymphocytes % (auto) 2.5 %; Monocytes # (auto) 0.08 K/uL (0.11-0.59); Monocytes % (auto) 0.6 %; Neutrophils # (auto) 13.95 K/uL (1.40-6.50); Neutrophils % (auto) 96.1 %; RBC Morphology Unremarkable
--- NOTE | 2024-01-27 07:43 | XRay Report ---
XR chest 1V portable HISTORY: 73 years-old Female aspiration, respiratory failure acute respiratory failure COMPARISON: 01/26/2024 TECHNIQUE: AP view of the chest FINDINGS: Cardiac silhouette is unchanged. Pulmonary vascular congestion with moderately improved aeration of t he lungs including decreased interstitial and alveolar opacities. No pneumothorax. Probable trace ple ural effusions. Degenerative changes of the shoulders and spine. IMPRESSION: Moderately improved aeration of the lungs suggestive of resolving pulmonary edema. ACT 112: Negative or not required by law. The above report was generated using voice recognition software. It may contain grammatical, syntax o r spelling errors. Electronically signed by: Bladimir Walsh M.D. 01/27/2024 7:42 AM
--- NOTE | 2024-01-27 08:45 | Electrocardiogram Report ---
Test Reason : Blood Pressure : / mmHG Vent. Rate : 122 BPM Atrial Rate : 122 BPM P-R Int : 158 ms QRS Dur : 064 ms QT Int : 304 ms P-R-T Axes : 054 016 023 degrees QTc Int : 433 ms Poor data quality, interpretation may be adversely affected Sinus tachycardia Otherwise normal ECG When compared with ECG of 25-JAN-2024 22:22, HR has increased by 20 bpm Otherwise no significant change Confirmed by Maurice Vargas ([id number]) on 01/27/2024 8:45:35 AM Referred By: REFERRED SELF Confirmed By:Maurice Vargas
[2024-01-27] MEDS ORDERED: SODIUM CHLORIDE 0.9% 250 ML IV PRN (09:33)
[2024-01-27] MEDS: IRON SUCROSE 300 MG in SODIUM CHLORIDE 0.9% 250 ML IV ONE (10:10)
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
[2024-01-27] MEDS: methylPREDNISolone 40 MG in SYRINGE 0 ML IV SCH (15:01)
[2024-01-27 16:05] LABS: Hematocrit (blood only) 27.6 % (37.0-47.0); Hemoglobin 8.4 g/dl (12.0-16.0)
[2024-01-27] MEDS ORDERED: MICONAZOLE NITRATE POWDER 85 GM EXT PRN (18:37)
[2024-01-28 06:06] LABS: Hematocrit (blood only) 28.1 % (37.0-47.0); Hemoglobin 9.1 g/dl (12.0-16.0); Mean Corpuscular Hemoglobin 25.5 pg (25.0-34.0); Mean Corpuscular Hgb Conc 32.4 g/dL (32.0-36.0); Mean Corpuscular Volume 78.7 fL (80.0-100.0); Mean Platelet Volume 9.5 fL (9.4-12.4); Platelet Count 281 K/uL (130-400); RDW Coefficient of Variation 15.2 % (11.5-14.5); RDW Standard Deviation 43.7 fL (36.4-46.3); Red Blood Count 3.57 M/uL (4.20-5.40)
[2024-01-28 06:41] LABS: Immature Granulocytes # (auto) 0.05 K/uL (0.01-0.20); Immature Granulocytes % (auto) 0.6 %; Lymphocytes # (auto) 0.55 K/uL (1.20-3.40); Lymphocytes % (auto) 6.1 %; Monocytes % (auto) 2.2 %; Neutrophils % (auto) 91.1 %
[2024-01-28 06:42] LABS: Calcium 8.2 mg/dl (8.6-10.3); Potassium 4.1 mmol/L (3.5-5.1)
[2024-01-28 06:47] LABS: BUN Creatinine Ratio 22.6 (10-20); Creatinine Clr Calc Pharmacy 22.1 ml/min; Est GFR (African American) 26.3 ml/min; Est GFR (Non-African American) 22.7 ml/min
[2024-01-28] MEDS: IRON SUCROSE 300 MG in SODIUM CHLORIDE 0.9% 250 ML IV ONE (09:47)
[2024-01-28] MEDS: amLODIPine BESYLATE 5 MG TAB PO SCH (09:47)
--- NOTE | 2024-01-28 12:23 | Hospitalist Progress Note ---
Date of Service January 28, 2024 Assessment & Plan (1) Aspiration into airway: Plan: Occurred January 25 in the p.m. She has responded nicely to parenteral steroid therapy and Zosyn. Now resolved. Steroid therapy and antibiotics discontinued today, January 27 (2) Acute hypoxic respiratory failure: Plan: Occurred last evening due to aspiration episode. Now resolved. She is back on room air (3) Symptomatic anemia: Plan: No overt evidence of GI bleeding. She initially received 2 units of packed red blood cells and hemoglobin improved to 9.0 but then drifted back down to 7.6. She received 2 more units packed red blood cells yesterday, January 26 hemoglobin much improved and stable. No evidence of overt GI bleeding. Serial labs. (4) Chronic anticoagulation: Plan: This was started due to her past history of pulmonary embolism which is not recent. I believe risks outweigh any potential benefits. Eliquis has been discontinued permanently (5) Urinary tract infection: Plan: Ruled out. Cultures negative. Zosyn and Diflucan discontinued. Blood cultures are negative. (6) Hyponatremia: Plan: Mild on admission. Asymptomatic. Serial labs (7) CKD (chronic kidney disease), stage III: Plan: Stable. Monitor intake and output. Serial lab (8) Hypertension: Plan: Stable. Continue current medical management (9) Sacral wound: Plan: Stage II. Continue current local care (10) Hx pulmonary embolism: Plan: Apparently this is the reason she is on systemic anticoagulation but this occurred sometime ago. Nothing acute. Eliquis has been discontinued (11) Iron deficiency: Plan: Parenteral iron replacement with Venofer for 3 days then oral replacement thereafter going forward. Currently day 3 of parenteral iron replacement. Will start ferrous sulfate tomorrowJanuary 28 Plan Anticipate eventual discharge to home. Case management consulted to involve Adult Protective Services Admission and Anticipated Discharge Date Admission Date: January 26, 2024 Subjective Alert and oriented. No distress. Solu-Medrol has been discontinued. She will receive her third day of parenteral iron replacement today, January 27. Oral iron replacement will commence tomorrow, January 28. Amlodipine added for better blood pressure control. Zosyn and fluconazole discontinued. Cultures are negative. Awaiting case management evaluation and referral to Adult Protective Services. Review of Systems 2 Review of Systems: Constitutional-no fever or chills ENT-no blurred vision, no double vision, no epistaxis, no sore throat Respiratory-no cough, no wheezing, no shortness of breath Cardiac-no palpitations, no chest pain, no syncope GI-no nausea, vomiting, diarrhea, melena, hematochezia -no urinary retention, no urinary incontinence, no dysuria, no hematuria Musculoskeletal-no joint pain, no muscle tenderness Skin-no bruising, no rashes, no pruritus Neuro-no isolated weakness, no paresthesia. She does have generalized weakness however Psych-no depression, no anxiety Physical Exam 2 Physical Exam: General-alert and oriented x3, no fevers, no chills HEENT-head atraumatic and normocephalic, pupils equal and reactive to light, extraocular muscles intact Neck-no lymphadenopathy or thyromegaly, trachea midline Chest-clear to auscultation. No rales, wheezing or rhonchi Cardiac-regular rate and rhythm, normal S1 and S2 Abdomen-normal bowel sounds, nontender, no hepatosplenomegaly Extremities-no cyanosis, clubbing, or edema Neuro-cranial nerves II through XII intact, motor and sensory function within normal limits, strength symmetrical with generalized weakness, no focal deficits Psych-normal affect, normal mood Results & Data Results & Data Vital Signs (Past 12 Hours) Vital Signs Temp Pulse Pulse Resp BP BP Pulse Ox 01/28/24 09:35 138/86 01/28/24 08:00 01/28/24 07:47 36.5 C 59 L 18 160/100 H 97 01/28/24 07:03 60 01/28/24 04:00 36.5 C 69 18 146/72 H 98 O2 Del Method 01/28/24 09:35 01/28/24 08:00 Room Air 01/28/24 07:47 Room Air 01/28/24 07:03 01/28/24 04:00 Room Air Laboratory Results 01/28/24 05:29 01/28/24 05:29 PG Care Time/CCT Total # of Minutes Spent Total Time Spent with Patient: Total time spent is greater than 50% in coordination of care (as documented) at patient's floor/unit and/or counseling patient: Coding Level of Care Code 58312 SUB INP/OBS CARE 3/50MIN Diagnoses Aspiration into airway T17.908A Acute hypoxic respiratory failure J96.01 Symptomatic anemia D64.9 Chronic anticoagulation Z79.01 Urinary tract infection N39.0 Hyponatremia E87.1 CKD (chronic kidney disease), stage III N18.30 Hypertension I10 Sacral wound S31.000A Hx pulmonary embolism Z86.711 Iron deficiency E61.1
[2024-01-29 06:40] LABS: Hematocrit (blood only) 30.1 % (37.0-47.0); Hemoglobin 9.3 g/dl (12.0-16.0); Mean Corpuscular Hemoglobin 25.2 pg (25.0-34.0); Mean Corpuscular Hgb Conc 30.9 g/dL (32.0-36.0); Mean Corpuscular Volume 81.6 fL (80.0-100.0); Mean Platelet Volume 9.6 fL (9.4-12.4); Platelet Count 281 K/uL (130-400); RDW Coefficient of Variation 15.6 % (11.5-14.5); RDW Standard Deviation 46.5 fL (36.4-46.3); Red Blood Count 3.69 M/uL (4.20-5.40); White Blood Count 9.86 K/ul (4.8-10.8)
[2024-01-29 07:06] LABS: BUN Creatinine Ratio 22.9 (10-20); Calcium 8.5 mg/dl (8.6-10.3); Creatinine Clr Calc Pharmacy 16.5 ml/min; Est GFR (African American) 18.4 ml/min; Est GFR (Non-African American) 15.9 ml/min; Potassium 4.2 mmol/L (3.5-5.1)
[2024-01-29 07:37] LABS: Basophils # (auto) 0.01 K/uL (0.00-0.20); Basophils % (auto) 0.1 %; Immature Granulocytes # (auto) 0.05 K/uL (0.01-0.20); Immature Granulocytes % (auto) 0.5 %; Lymphocytes # (auto) 0.63 K/uL (1.20-3.40); Lymphocytes % (auto) 6.4 %; Monocytes # (auto) 0.22 K/uL (0.11-0.59); Monocytes % (auto) 2.2 %; Neutrophils # (auto) 8.95 K/uL (1.40-6.50); Neutrophils % (auto) 90.8 %; RBC Morphology Unremarkable
--- NOTE | 2024-01-29 14:09 | Hospitalist Progress Note ---
Date of Service January 29, 2024 Assessment & Plan (1) Aspiration into airway: Plan: Occurred January 25 in the p.m. She has responded nicely to parenteral steroid therapy and Zosyn. Now resolved. Steroid therapy and antibiotics discontinued on January 27 (2) Acute hypoxic respiratory failure: Plan: Occurred 01/26 evening due to aspiration episode. Now resolved. She is back on room air (3) Symptomatic anemia: Plan: No overt evidence of GI bleeding. She initially received 2 units of packed red blood cells and hemoglobin improved to 9.0 but then drifted back down to 7.6. She received 2 more units packed red blood cells again on January 26. Hemoglobin improved and now stable at 9.3. Oral iron supplementation has been started. No evidence of overt GI bleeding. Serial labs. (4) Chronic anticoagulation: Plan: This was started due to her past history of pulmonary embolism which is not recent. I believe risks outweigh any potential benefits. Eliquis has been discontinued permanently (5) Urinary tract infection: Plan: Ruled out. Cultures negative. Zosyn and Diflucan have been discontinued. Blood cultures are negative. (6) Hyponatremia: Plan: Mild on admission. Asymptomatic. Serial labs (7) CKD (chronic kidney disease), stage III: Plan: Stable. Monitor intake and output. Serial lab (8) Hypertension: Plan: Stable. Continue current medical management (9) Sacral wound: Plan: At least stage II bilateral buttock decubitus ulcers. These may need to be debrided. General surgery consultation requested. (10) Hx pulmonary embolism: Plan: Apparently this is the reason she is on systemic anticoagulation but this occurred sometime ago. Nothing acute. Eliquis has been discontinued (11) Iron deficiency: Plan: She has completed 3 days of parenteral iron replacement with Venofer and now is on oral ferrous sulfate going forward. Plan Probable SNF placement at the time of discharge before she can eventually return home. Adult Protective Services involvement pending. Case management aware Admission and Anticipated Discharge Date Admission Date: January 26, 2024 Subjective Alert and oriented. Hemoglobin stable now at 9.3. Oral iron replacement has been started. Amlodipine uptitrated for better blood pressure control. Surgery consultation requested to evaluate her buttock decubiti which may need debrided. They appear to be at least stage II if not stage III. Eliquis has been discontinued on admission and she will remain off of Eliquis indefinitely Review of Systems 2 Review of Systems: Constitutional-no fever or chills ENT-no blurred vision, no double vision, no epistaxis, no sore throat Respiratory-no cough, no wheezing, no shortness of breath Cardiac-no palpitations, no chest pain, no syncope GI-no nausea, vomiting, diarrhea, melena, hematochezia -no urinary retention, no urinary incontinence, no dysuria, no hematuria Musculoskeletal-no joint pain, no muscle tenderness Skin-purpuric stage II bilateral buttock ulcerations. Neuro-no isolated weakness, no paresthesia. She does have generalized weakness however Psych-no depression, no anxiety Physical Exam 2 Physical Exam: General-alert and oriented x3, no fevers, no chills HEENT-head atraumatic and normocephalic, pupils equal and reactive to light, extraocular muscles intact Neck-no lymphadenopathy or thyromegaly, trachea midline Chest-clear to auscultation. No rales, wheezing or rhonchi Cardiac-regular rate and rhythm, normal S1 and S2 Abdomen-normal bowel sounds, nontender, no hepatosplenomegaly Extremities-no cyanosis, clubbing, or edema Neuro-cranial nerves II through XII intact, motor and sensory function within normal limits, strength symmetrical with generalized weakness, no focal deficits Psych-normal affect, normal mood Results & Data Results & Data Vital Signs (Past 12 Hours) Vital Signs Temp Pulse Pulse Resp BP Pulse Ox O2 Del Method 01/29/24 11:45 36.4 C L 66 16 140/67 99 Room Air 01/29/24 08:45 Room Air 01/29/24 07:26 36.4 C L 59 L 16 155/69 H 98 Room Air 01/29/24 07:21 58 L 01/29/24 04:00 36.4 C L 61 20 160/74 H 98 Room Air Laboratory Results 01/29/24 05:38 01/29/24 05:38 PG Care Time/CCT Total # of Minutes Spent Total Time Spent with Patient: Total time spent is greater than 50% in coordination of care (as documented) at patient's floor/unit and/or counseling patient: Coding Level of Care Code 58283 SUB INP/OBS CARE 3/50MIN Diagnoses Aspiration into airway T17.908A Acute hypoxic respiratory failure J96.01 Symptomatic anemia D64.9 Chronic anticoagulation Z79.01 Urinary tract infection N39.0 Hyponatremia E87.1 CKD (chronic kidney disease), stage III N18.30 Hypertension I10 Sacral wound S31.000A Hx pulmonary embolism Z86.711 Iron deficiency E61.1
--- NOTE | 2024-01-29 15:46 | Communication Note ---
Date of Service: January 29, 2024 Patient not examined, chart reviewed. Spoke with Rubia Marshall wound care nurse. There is no evidence of ulceration or fluctuance to suggest need for debride ment. No eschar on wound images. Went to see patient in consult with Dr. Ny however patient preferred to not be examined at this time as wound care nurse was just in to see her and applied ointment and dressings. Will evaluate tomorrow. Continue current wound care management as directed by wound care nurse. Recommend frequent offloading and air mattress.
[2024-01-29] MEDS: FERROUS SULFATE 325 MG TAB PO SCH (17:13)
[2024-01-30 06:31] LABS: Basophils # (auto) 0.01 K/uL (0.00-0.20); Basophils % (auto) 0.1 %; Hematocrit (blood only) 29.5 % (37.0-47.0); Hemoglobin 9.4 g/dl (12.0-16.0); Immature Granulocytes # (auto) 0.06 K/uL (0.01-0.20); Immature Granulocytes % (auto) 0.5 %; Lymphocytes # (auto) 0.83 K/uL (1.20-3.40); Lymphocytes % (auto) 7.2 %; Mean Corpuscular Hemoglobin 25.5 pg (25.0-34.0); Mean Corpuscular Hgb Conc 31.9 g/dL (32.0-36.0); Mean Corpuscular Volume 79.9 fL (80.0-100.0); Mean Platelet Volume 8.8 fL (9.4-12.4); Monocytes # (auto) 0.66 K/uL (0.11-0.59); Monocytes % (auto) 5.7 %; Neutrophils % (auto) 86.5 %; Platelet Count 273 K/uL (130-400); RDW Coefficient of Variation 15.6 % (11.5-14.5); RDW Standard Deviation 45.2 fL (36.4-46.3); Red Blood Count 3.69 M/uL (4.20-5.40); White Blood Count 11.56 K/ul (4.8-10.8)
[2024-01-30 06:39] LABS: BUN Creatinine Ratio 26.7 (10-20); Calcium 8.4 mg/dl (8.6-10.3); Creatinine Clr Calc Pharmacy 16.7 ml/min; Est GFR (African American) 19.2 ml/min; Est GFR (Non-African American) 16.6 ml/min; Potassium 3.8 mmol/L (3.5-5.1)
[2024-01-30] MEDS: amLODIPine BESYLATE 5 MG TAB PO SCH (08:17)
--- NOTE | 2024-01-30 14:18 | Hospitalist Progress Note ---
Date of Service January 30, 2024 Assessment & Plan (1) Aspiration into airway: Plan: Occurred January 25 in the p.m. She has responded nicely to parenteral steroid therapy and Zosyn. Now resolved. Steroid therapy and antibiotics were discontinued on January 27 (2) Acute hypoxic respiratory failure: Plan: Occurred 01/26 evening due to aspiration episode. Now resolved. She is back on room air (3) Symptomatic anemia: Plan: No overt evidence of GI bleeding. She initially received 2 units of packed red blood cells and hemoglobin improved to 9.0 but then drifted back down to 7.6. She received 2 more units packed red blood cells again on January 26. Hemoglobin improved and now stable. Oral iron supplementation has been started. No evidence of overt GI bleeding. Serial labs. (4) Chronic anticoagulation: Plan: This was started due to her past history of pulmonary embolism which is not recent. I believe risks outweigh any potential benefits. Eliquis has been discontinued permanently (5) Urinary tract infection: Plan: Ruled out. Cultures negative. Zosyn and Diflucan have been discontinued. Blood cultures are negative. (6) Hyponatremia: Plan: Mild on admission. Asymptomatic. Serial labs (7) CKD (chronic kidney disease), stage III: Plan: Stable. Monitor intake and output. Serial lab (8) Hypertension: Plan: Stable. Continue current medical management (9) Sacral wound: Plan: At least stage II bilateral buttock decubitus ulcers. These may need to be debrided. General surgery consultation requested. (10) Hx pulmonary embolism: Plan: Apparently this is the reason she is on systemic anticoagulation but this occurred sometime ago. Nothing acute. Eliquis has been discontinued (11) Iron deficiency: Plan: She has completed 3 days of parenteral iron replacement with Venofer and now is on oral ferrous sulfate going forward. Plan Probable SNF placement at the time of discharge before she can eventually return home. She is medically stable for discharge when arrangements are finalized Admission and Anticipated Discharge Date Admission Date: January 26, 2024 Subjective Alert and oriented. No acute distress. Blood pressure much improved with addition of amlodipine. Hemoglobin continues to improve up to 9.4. She received a total of 4 units packed red blood cells this admission. Eliquis has been discontinued permanently. Creatinine stable at 2.7. Awaiting SNF placement. She is medically stable Review of Systems 2 Review of Systems: Constitutional-no fever or chills ENT-no blurred vision, no double vision, no epistaxis, no sore throat Respiratory-no cough, no wheezing, no shortness of breath Cardiac-no palpitations, no chest pain, no syncope GI-no nausea, vomiting, diarrhea, melena, hematochezia -no urinary retention, no urinary incontinence, no dysuria, no hematuria Musculoskeletal-no joint pain, no muscle tenderness Skin-purpuric stage II bilateral buttock ulcerations. Neuro-no isolated weakness, no paresthesia. She does have generalized weakness however Psych-no depression, no anxiety Physical Exam 2 Physical Exam: General-alert and oriented x3, no fevers, no chills HEENT-head atraumatic and normocephalic, pupils equal and reactive to light, extraocular muscles intact Neck-no lymphadenopathy or thyromegaly, trachea midline Chest-clear to auscultation. No rales, wheezing or rhonchi Cardiac-regular rate and rhythm, normal S1 and S2 Abdomen-normal bowel sounds, nontender, no hepatosplenomegaly Extremities-no cyanosis, clubbing, or edema Neuro-cranial nerves II through XII intact, motor and sensory function within normal limits, strength symmetrical with generalized weakness, no focal deficits Psych-normal affect, normal mood Results & Data Results & Data Vital Signs (Past 12 Hours) Vital Signs Temp Pulse Pulse Resp BP BP Pulse Ox 01/30/24 11:40 36.4 C L 69 18 157/65 H 97 01/30/24 08:15 01/30/24 07:34 36.3 C L 68 16 149/59 H 99 01/30/24 07:02 64 01/30/24 04:08 36.4 C L 65 20 157/71 H 98 O2 Del Method 01/30/24 11:40 Room Air 01/30/24 08:15 Room Air 01/30/24 07:34 Room Air 01/30/24 07:02 01/30/24 04:08 Room Air Laboratory Results 01/30/24 05:41 01/30/24 05:41 PG Care Time/CCT Total # of Minutes Spent Total Time Spent with Patient: Total time spent is greater than 50% in coordination of care (as documented) at patient's floor/unit and/or counseling patient: Coding Level of Care Code 60790 SUB INP/OBS CARE 3/50MIN Diagnoses Aspiration into airway T17.908A Acute hypoxic respiratory failure J96.01 Symptomatic anemia D64.9 Chronic anticoagulation Z79.01 Urinary tract infection N39.0 Hyponatremia E87.1 CKD (chronic kidney disease), stage III N18.30 Hypertension I10 Sacral wound S31.000A Hx pulmonary embolism Z86.711 Iron deficiency E61.1
[2024-01-31 06:53] LABS: Basophils # (auto) 0.02 K/uL (0.00-0.20); Basophils % (auto) 0.2 %; Eosinophils # (auto) 0.04 K/uL (0.00-0.50); Eosinophils % (auto) 0.4 %; Hematocrit (blood only) 31.6 % (37.0-47.0); Hemoglobin 9.7 g/dl (12.0-16.0); Immature Granulocytes # (auto) 0.05 K/uL (0.01-0.20); Immature Granulocytes % (auto) 0.5 %; Lymphocytes # (auto) 0.95 K/uL (1.20-3.40); Lymphocytes % (auto) 10.4 %; Mean Corpuscular Hemoglobin 25.2 pg (25.0-34.0); Mean Corpuscular Hgb Conc 30.7 g/dL (32.0-36.0); Mean Corpuscular Volume 82.1 fL (80.0-100.0); Monocytes % (auto) 6.6 %; Neutrophils # (auto) 7.44 K/uL (1.40-6.50); Neutrophils % (auto) 81.9 %; Platelet Count 280 K/uL (130-400); RDW Coefficient of Variation 15.7 % (11.5-14.5); RDW Standard Deviation 45.9 fL (36.4-46.3); Red Blood Count 3.85 M/uL (4.20-5.40)
[2024-01-31 07:22] LABS: Anion Gap 8 (3-11); BUN Creatinine Ratio 29.3 (10-20); Blood Urea Nitrogen 71 mg/dl (6-23); Calcium 8.3 mg/dl (8.6-10.3); Carbon Dioxide 22 mmol/L (21-32); Chloride 105 mmol/L (98-107); Creatinine Clr Calc Pharmacy 18.8 ml/min; Est GFR (African American) 21.9 ml/min; Est GFR (Non-African American) 18.9 ml/min; Glucose 147 mg/dl (70-99(Fasting)); Sodium 135 mmol/L (136-145)
--- NOTE | 2024-01-31 14:45 | Hospitalist Progress Note ---
Date of Service January 31, 2024 Assessment & Plan (1) Aspiration into airway: Plan: Occurred January 25 in the p.m. She has responded nicely to parenteral steroid therapy and Zosyn. Now resolved. Steroid therapy and antibiotics were discontinued on January 27 (2) Acute hypoxic respiratory failure: Plan: Occurred 01/26 evening due to aspiration episode. Now resolved. She is back on room air (3) Symptomatic anemia: Plan: No overt evidence of GI bleeding. She received a total of 4 units packed red blood cells and hemoglobin is rising after iron replacement. Oral iron supplementation has been started. No evidence of overt GI bleeding. Serial labs. (4) Chronic anticoagulation: Plan: This was started due to her past history of pulmonary embolism which is not recent. I believe risks outweigh any potential benefits. Eliquis has been discontinued permanently (5) Urinary tract infection: Plan: Ruled out. Cultures negative. Zosyn and Diflucan have been discontinued. Blood cultures are negative. (6) Hyponatremia: Plan: Mild on admission. Asymptomatic. Serial labs (7) CKD (chronic kidney disease), stage III: Plan: Stable. Monitor intake and output. Serial lab (8) Hypertension: Plan: Stable. Continue current medical management (9) Sacral wound: Plan: At least stage II bilateral buttock decubitus ulcers. These may need to be debrided. General surgery consultation requested. (10) Hx pulmonary embolism: Plan: Apparently this is the reason she is on systemic anticoagulation but this occurred sometime ago. Nothing acute. Eliquis has been discontinued (11) Iron deficiency: Plan: She has completed 3 days of parenteral iron replacement with Venofer and now is on oral ferrous sulfate going forward. Plan She now refuses to consider SNF placement. She will go home with home health services probably tomorrow, January 31 Admission and Anticipated Discharge Date Admission Date: January 26, 2024 Subjective Alert and oriented. She remains stable. Creatinine has improved down to 2.4. Blood pressure is better after amlodipine uptitrated. Eliquis has been discontinued permanently. She is now on oral iron replacement. Hemoglobin continues to rise, now 9.7. She received 4 units packed red blood cells total this admission. Anticipate discharge to home with home health services tomorrow, January 31 Review of Systems 2 Review of Systems: Constitutional-no fever or chills ENT-no blurred vision, no double vision, no epistaxis, no sore throat Respiratory-no cough, no wheezing, no shortness of breath Cardiac-no palpitations, no chest pain, no syncope GI-no nausea, vomiting, diarrhea, melena, hematochezia -no urinary retention, no urinary incontinence, no dysuria, no hematuria Musculoskeletal-no joint pain, no muscle tenderness Skin-purpuric stage II bilateral buttock ulcerations. Neuro-no isolated weakness, no paresthesia. She does have generalized weakness however Psych-no depression, no anxiety Physical Exam 2 Physical Exam: General-alert and oriented x3, no fevers, no chills HEENT-head atraumatic and normocephalic, pupils equal and reactive to light, extraocular muscles intact Neck-no lymphadenopathy or thyromegaly, trachea midline Chest-clear to auscultation. No rales, wheezing or rhonchi Cardiac-regular rate and rhythm, normal S1 and S2 Abdomen-normal bowel sounds, nontender, no hepatosplenomegaly Extremities-no cyanosis, clubbing, or edema Neuro-cranial nerves II through XII intact, motor and sensory function within normal limits, strength symmetrical with generalized weakness, no focal deficits Psych-normal affect, normal mood Results & Data Results & Data Vital Signs (Past 12 Hours) Vital Signs Temp Pulse Pulse Pulse Resp BP Pulse Ox 01/31/24 11:26 36.5 C 73 20 158/69 H 100 01/31/24 08:19 36.5 C 71 20 164/70 H 98 01/31/24 07:03 70 01/31/24 03:53 36.4 C L 72 20 166/75 H 98 O2 Del Method 01/31/24 11:26 Room Air 01/31/24 08:19 Room Air 01/31/24 07:03 01/31/24 03:53 Room Air Laboratory Results 01/31/24 06:11 01/31/24 07:48 PG Care Time/CCT Total # of Minutes Spent Total Time Spent with Patient: Total time spent is greater than 50% in coordination of care (as documented) at patient's floor/unit and/or counseling patient: Coding Level of Care Code 26042 SUB INP/OBS CARE 2/35MIN Diagnoses Aspiration into airway T17.908A Acute hypoxic respiratory failure J96.01 Symptomatic anemia D64.9 Chronic anticoagulation Z79.01 Urinary tract infection N39.0 Hyponatremia E87.1 CKD (chronic kidney disease), stage III N18.30 Hypertension I10 Sacral wound S31.000A Hx pulmonary embolism Z86.711 Iron deficiency E61.1
--- NOTE | 2024-02-01 12:05 | Discharge Summary ---
Date of Service February 01, 2024 Admission HPI Per Admitting Provider The patient is a 73-year-old female with a past medical history including pulmonary embolism on chronic anticoagulation, asthma, gout, hypertension, history of urinary tract infection, history of anemia requiring 3 to 4 units of PRBCs in 05-[address] [facility]. Patient presents to the emergency department symptoms as noted above including acute worsening of chronic generalized weakness, now affecting ability to walk, and had a temperature of 103 F. Laboratories today fine hemoglobin 7.8, with most recent from 2018 here 11.4. She denies any recent loss of blood in stool or urine. She reports that in April 2013 she was admitted to [facility], where her hemoglobin was less than 5, and required 3 to 4 units of PRBCs. She denied at that time any interest in pursuing a workup, and she reports that she does not want any type of workup this admission either. She will however except transfusions if needed. She notes that she had a return of menses from 8 62-72, after having started warfarin at that time, and this stopped after she had a D&C at and has not recurred since. Sodium was mildly low at 129 [employer] testing is negative, and urinalysis is positive including yeast. From the ED the patient received the following normal saline 1 L x 2, Tylenol 1 g p.o., and ceftriaxone 1 g IV Principal Diagnosis Aspiration of gastric contents with respiratory failure, symptomatic anemia due to iron deficiency, UTI, uncontrolled hypertension Discharge Exam General-alert and oriented x3, no fevers, no chills HEENT-head atraumatic and normocephalic, pupils equal and reactive to light, extraocular muscles intact Neck-no lymphadenopathy or thyromegaly, trachea midline Chest-clear to auscultation. No rales, wheezing or rhonchi Cardiac-regular rate and rhythm, normal S1 and S2 Abdomen-normal bowel sounds, nontender, no hepatosplenomegaly Extremities-no cyanosis, clubbing, or edema Neuro-cranial nerves II through XII intact, motor and sensory function within normal limits, strength symmetrical with generalized weakness, no focal deficits Psych-normal affect, normal mood Discharge Data Allergies Allergy/AdvReac Type Severity Reaction Status Date / Time No Known Allergies Allergy Verified 01/25/24 22:59 Consultations 01/26/24 00:44 ED Decision to Admit Stat 01/29/24 14:04 Consult General Surgery Routine Hospital Course (1) Aspiration into airway: Occurred January 25 in the p.m. She has responded nicely to parenteral steroid therapy and Zosyn. Now resolved. Steroid therapy and antibiotics were discontinued on January 27 (2) Acute hypoxic respiratory failure: Occurred 01/26 evening due to aspiration episode. Now resolved. She is back on room air (3) Symptomatic anemia: No overt evidence of GI bleeding. She received a total of 4 units packed red blood cells and hemoglobin is rising after iron replacement. Oral iron sup plementation has been started. No evidence of overt GI bleeding. Serial labs. (4) Chronic anticoagulation: This was started due to her past history of pulmonary embolism which is not recent. I believe risks outweigh any potential benefits. Eliquis has been discontinued permanently (5) Urinary tract infection: Ruled out. Cultures negative. Zosyn and Diflucan have been discontinued. Blood cultures are negative. (6) Hyponatremia: Mild on admission. Asymptomatic. Serial labs (7) CKD (chronic kidney disease), stage III: Stable. Monitor intake and output. Serial lab (8) Hypertension: Stable. Continue current medical management (9) Sacral wound: At least stage II bilateral buttock decubitus ulcers. Local care until healed (10) Hx pulmonary embolism: Apparently this is the reason she is on systemic anticoagulation but this occurred sometime ago. Nothing acute. Eliquis has been discontinued (11) Iron deficiency: She has completed 3 days of parenteral iron replacement with Venofer and now is on oral ferrous sulfate going forward. Plan Home today with home health services, January 31 Total Time Total Time Spent Total Time Spent (In Minutes): 50 minutes Discharge Plan Discharge Items Patient Disposition: Home - Home Health Services Reason For Visit: SYMPTOMATIC ANEMIA, UTI Discharge Diagnosis: Acute respiratory failure due to aspiration of gastric contents, symptomatic anemia, iron deficiency, urinary tract infection Activity: Resume your previous activity Non-emergency contact: Primary Care Provider Call non-emergency contact if: you have any medication questions Follow-up/Referrals: Gwen Bravo MD [Primary Care Provider] - Diet: Regular and Heart Healthy Addtl Attending Provider Instructions: Eliquis has been discontinued permanently. Take amlodipine once daily and iron tablets twice daily. Prescriptions have been sent to [facility] pharmacy in [place] Pending Studies at Discharge: No Stand-Alone Forms: Stamp.it, Smoking Cessation Medications and DC Order Prescriptions: New ferrous sulfate 325 mg (65 mg iron) Tablet,Delayed Release (Dr/Ec) 325 mg PO BIDM Qty: 60 0RF amlodipine 10 mg tablet 10 mg PO DAILY Qty: 30 0RF ferrous sulfate 325 mg (65 mg iron) tablet,delayed release (DR/EC) 325 mg PO BID Qty: 60 0RF Continued allopurinol 100 mg tablet 100 mg PO QAM metoprolol tartrate 50 mg tablet 50 mg PO BID Anoro Ellipta 62.5-25 mcg/actuation blister with device 1 inh INHALATION DAILY Rx Instructions: PER PT "DON'T USE TO OFTEN". silver sulfadiazine 1 % cream 1 applic TOPICAL DIRECTED PRN (Reason: Skin Irritation) ondansetron HCl 4 mg tablet 4 mg PO Q8H PRN (Reason: NAUSEA/VOMITING) ibuprofen 200 mg Tablet 200 - 400 mg PO Q6H PRN (Reason: Pain) albuterol sulfate 90 mcg/actuation Hfa Aerosol Inhaler 2 puff INHALATION DIRECTED PRN (Reason: Shortness Of Breath Or Wheezing) Discontinued Eliquis 5 mg tablet 5 mg PO BID Discharge Orders: Discharge Order (Routine); Ordered 02/01/24 Ordered By: Khurram Coombs Admission Data Admit Date/Time: 01/26/24 01:38 Attending Provider: Khurram Coombs Admit Provider: Carlton Tai Primary Care Provider: Gwen Bravo Other Providers: Carlton Tai; Chris Maldonado; Marlo Colindres; Storm Monroy; Anselmo Camp; Elvis Yarbrough; Elsy Macias; Iker Guillermo; Anthony Bender; Sean Alvarez; Tonio Kauffman; [facility] Fax Coding Level of Care Code 44525 INP/OBS DISCH >30 MIN Diagnoses Aspiration into airway T17.908A Acute hypoxic respiratory failure J96.01 Symptomatic anemia D64.9 Chronic anticoagulation Z79.01 Urinary tract infection N39.0 Hyponatremia E87.1 CKD (chronic kidney disease), stage III N18.30 Hypertension I10 Sacral wound S31.000A Hx pulmonary embolism Z86.711 Iron deficiency E61.1
--- NOTE | 2024-02-05 13:47 | Coding Query ---
SEPSIS To promote full compliance with coding requirements relating to patient care, physician participation is requested in all cases of wind farm electrical systems designer uncertainty. Please assist us with the question(s) below: In responding to this query, please exercise your independent professional judgement. The fact that a question is asked does not imply that any particular answer is desired or expected. We appreciate your clarification on this issue. The medical record reflects the following clinical findings: * ED Note * Pulse - 99 * Temp - 103 * WBC - 14.04 * ABG pH - 7.15 * Procalcitonin - 1.4 * Generalized weakness * Possible UTI * Sacral Wound w/o purulent drainage * Treated with Zosyn and fluconazole * Discharge Summary * UTI ruled out * Blood cultures negative * Zosyn and Diflucan discontinued The Emergency Department Note lists a differential diagnosis of sepsis. Based on the above clinical indicators, can you further specify if sepsis was: ____ ( ) Ruled in ( ) Ruled out ( x ) Unable to determine. ( ) Other (please specify): Patient has MTDD
== END 2024-02-01 13:57 | disposition home health service (06) | DRG 811 ==
LOC: ED 21:30 → SUATTDRO 01-26 01:38 → 2N 01-26 01:38

== ENCOUNTER 2024-10-25 12:24 | Inpatient (IN) ==
--- NOTE | 2024-10-25 13:24 | XRay Report ---
XR chest 1V portable CLINICAL HISTORY: weakness COMPARISON STUDY: Chest radiograph January 27, 2024. Chest CT September 02, 2011. FINDINGS: Lung volumes are normal. A 2.2 cm right midlung elongated density is present. There is no p neumothorax or pleural effusion. Cardiac size is normal. Mediastinal contours are normal. There is no evidence for pulmonary edema. IMPRESSION: 2.2 cm right midlung density. This may reflect a mild infectious process, atelectasis or scarring. However, a pulmonary lesion could appear similar. Follow-up PA and lateral chest radiograph s in one month are recommended to ensure resolution. ACT 112: Positive. There are findings on this exam that require communication between the performing entity and the patient following Patient Test Result Information Act ([place] Act 112) guidelines. Electronically signed by: Regulo Justice M.D. 10/25/2024 1:23 PM
[2024-10-25] MEDS: SODIUM CHLORIDE 0.9% 500 ML IV ONE ×2 (13:36→14:34)
[2024-10-25] MEDS: CEFEPIME 2000MG 2,000 MG/20 ML SYR IV STA (13:36)
[2024-10-25] MEDS: ACETAMINOPHEN 1,000 MG/100 ML VIAL IV STA (14:33)
[2024-10-25] MEDS: fentaNYL citrate PF 100 MCG/2 ML VIAL IV STA (14:33)
[2024-10-25 14:52] LABS: Basophils # (auto) 0.04 K/uL (0.00-0.20); Basophils % (auto) 0.3 %; Hematocrit (blood only) 28.5 % (37.0-47.0); Hemoglobin 8.8 g/dl (12.0-16.0); Immature Granulocytes # (auto) 0.11 K/uL (0.01-0.20); Immature Granulocytes % (auto) 0.7 %; Lymphocytes # (auto) 0.69 K/uL (1.20-3.40); Lymphocytes % (auto) 4.6 %; Mean Corpuscular Hemoglobin 28.2 pg (25.0-34.0); Mean Corpuscular Hgb Conc 30.9 g/dL (32.0-36.0); Mean Corpuscular Volume 91.3 fL (80.0-100.0); Mean Platelet Volume 8.3 fL (9.4-12.4); Monocytes # (auto) 0.71 K/uL (0.11-0.59); Monocytes % (auto) 4.7 %; Neutrophils # (auto) 13.47 K/uL (1.40-6.50); Neutrophils % (auto) 89.7 %; Platelet Count 421 K/uL (130-400); RDW Coefficient of Variation 14.9 % (11.5-14.5); RDW Standard Deviation 49.8 fL (36.4-46.3); Red Blood Count 3.12 M/uL (4.20-5.40); White Blood Count 15.02 K/ul (4.8-10.8)
[2024-10-25 15:06] LABS: Albumin Globulin Ratio 0.5 (0.9-2); Albumin Level 2.4 gm/dl (3.4-5.0); BUN Creatinine Ratio 31.2 (10-20); Bilirubin,Total 0.5 mg/dl (0.2-1.0); Calcium 8.6 mg/dl (8.6-10.3); Creatinine Clr Calc Pharmacy 17.9 ml/min; Globulin 4.6 gm/dl (2.5-4.0); Magnesium 1.7 mg/dl (1.7-2.4); Potassium 4.9 mmol/L (3.5-5.1)
[2024-10-25 15:12] LABS: Troponin I High Sensitivity 26.2 pg/ml (0-14)
[2024-10-25 15:22] LABS: Thyroid Stimulating Hormone 3.307 uIu/ml (0.300-4.500)
[2024-10-25] MEDS: METOPROLOL TARTRATE 1 MG/ML VIAL IV STA (16:02)
[2024-10-25] MEDS: SODIUM CHLORIDE 0.9% 1,000 ML IV ONE (16:03)
[2024-10-25 18:39] LABS: Appearance Urine Turbid (Clear); Bacteria Urine Automated 4+ (None Seen); Bilirubin Urine Negative (Negative); Blood Urine 3+ (Negative); Color Urine Yellow; Glucose Urine UA Negative (Negative); Ketones Urine Trace (Negative); Leukocyte Esterase Urine 3+ (Negative); Nitrite Urine Positive (Negative); Protein Urine 3+ (Negative); RBC Urine Automated >20 /hpf (0-2); Specific Gravity Urine 1.016 (1.000-1.030); Urobilinogen Urine Negative (Negative); WBC Urine Automated >50 /hpf (0-5)
--- NOTE | 2024-10-25 18:42 | History & Physical Report ---
Date of Service October 25, 2024 Assessment & Plan (1) Sepsis: Plan: Follow up blood and urine cultures Suspected urinary source for initial workup CT A/P wo IV contrast to assess for alternative source vs. stone vs. pancolitis (suprapubic pain on exam) IV cefepime pending further workup (2) Diarrhea: Plan: Watery Stool and c. diff PCR pending CT A/P pending (3) Abnormal CXR: Plan: Doubtful cause of her sepsis given small area Follow up CXR in 4-6 weeks to check for resolution (4) Sacral wound: Plan: Consult wound care Unable to adequately assess in the ER due to pain and difficulty on rolling (5) Metabolic acidosis with normal anion gap and bicarbonate losses: Plan: Mostly NAGMA (mild anion gap) ?due to diarrhea, ?just from CKD and needs sodium bicarb Start Sodium bicarb 150 meq in D5W @ 100ml/hr (6) Hypertension: Plan: Continue metoprolol to avoid rebound hypertension (7) Anemia requiring transfusions: Plan: At baseline Ferritin, iron studies, B12, folate, retic count, LDH with AM labs (8) Elevated alkaline phosphatase level: Plan: Concerning for bone involvement ?underlying osteomyelitis, CT A/P pending Repeat with AM labs (9) Hx pulmonary embolism: Plan: 2010 or 2011. Unclear if she should still be taking Eliquis, discontinued during last admission and not picked up since January (10) Urinary tract infection: (11) CKD (chronic kidney disease) stage 4, GFR 15-29 ml/min: Plan: At baseline continue to monitor closely for deterioration Plan VTE Prophyalxis - heparin 5000 units SQ BID (unclear if she should still be taking Eliquis as last picked up in January) Diet - NPO pending result of CT Disposition - admit to PCU Admission and Anticipated Discharge Date Admission Date: October 25, 2024 History of Present Illness Chief Complaint: General illness Primary Care Provider: Gwen Bravo MD Yohana Rutherford is a 74 year old female who presenst to the ER with 2 week history of generally not feeling unwell. She denies any fever, chills, chest pain, shortness of breath, nasal congestion, cough, abdominal pain or urinary symptoms. She reports having decreased appetite and diarrhea during this time. She has ongoing open wound on her sacrum which has been getting worse recently. She notes not eating or drinking well for the last 2 weeks but no nausea, vomiting, dysphagia or odynophagia. No recent antibiotic use or history of c. diff but she has noticed her stool has been watery. Allergies Allergy/AdvReac Type Severity Reaction Status Date / Time No Known Allergies Allergy Verified 09/17/24 11:54 Home Medications Medication Instructions Recorded Confirmed Type allopurinol 100 mg tablet 100 mg PO QAM 10/23/19 10/25/24 History metoprolol tartrate 50 mg tablet 50 mg PO BID 10/23/19 10/25/24 History albuterol sulfate 90 mcg/actuation 2 puff inhalation DIRECTED PRN 01/25/24 10/25/24 History aerosol inhaler Shortness Of Breath Or Wheezing ondansetron HCl 4 mg tablet 4 mg PO Q8H PRN NAUSEA/VOMITING 01/25/24 10/25/24 History silver sulfadiazine 1 % topical 1 applic topical DAILY PRN Skin 01/25/24 10/25/24 History cream Irritation acetaminophen 650 mg 650 mg PO DAILY PRN Pain 08/26/24 10/25/24 History tablet,extended release apixaban 2.5 mg tablet (Eliquis) 0 mg PO BID 08/26/24 10/25/24 History Past Med/Surg History Problem List (Updated 10/26/24 @ 07:00 by Teofilo Delong MD) Elevated alkaline phosphatase level Metabolic acidosis with normal anion gap and bicarbonate losses Abnormal CXR Diarrhea Sepsis Acute hypoxic respiratory failure Aspiration into airway Iron deficiency Ambulatory dysfunction Generalized weakness Hyponatremia Urinary tract infection Symptomatic anemia Medical History (Updated 10/26/24 @ 07:00 by Teofilo Delong MD) CKD (chronic kidney disease) stage 4, GFR 15-29 ml/min Generalized weakness COPD (chronic obstructive pulmonary disease) has occasional cough Acute hypoxic respiratory failure 01/2024 "due to huge blood clot in lungs" Wheelchair dependence Ambulatory dysfunction Aspiration into airway 01/2024, admitted to hospital w/UTI, "aspirated and due to this and was resuscitated even though she had a DNR" Factor 5 Leiden mutation, heterozygous Sacral wound "still has, has seen [address]" Asthma inh prn>"rare use" Hypertension Gout Anemia requiring transfusions 01/2024, no current issues Chronic anticoagulation Hx pulmonary embolism 2010 or 2011, 2/2 Factor V Surgical History Hx of left cataract extraction Hx of cholecystectomy Hx of eye surgery in her 30's, for "lazy eye" Family History Other Family history non-contributory Social History Smoking Status: Never smoker Second Hand Exposure: No; Do You Dip or Chew Tobacco: No; Tobacco Cessation Education Requested by Patient: No Hx Alcohol Use: No Hx Substance Use: No Preferred Language: [place] Communication Ability: Effective Mud Engineer Required: No Beliefs That Will Affect Care: None marital status: / Current Living Situation: Family Current Living Situation Comment: son and granddaughters live with her current occupational status: employed Other Information That Helps Us Care for You: No Feels Safe at Home: Yes Safety Concerns: Feels Safe At This Time Assistive Devices: Denture - Upper, Glasses and Walker Review of Systems Review of Systems: All systems reviewed & are unremarkable except as noted in HPI & below Physical Exam Constitutional: well developed; + not well nourished and no acute distress Eyes: PERRL, conjunctivae normal, anicteric sclerae ENMT: external ear and nose normal, oropharynx normal Respiratory: normal respiratory effort, lungs clear to auscultation Cardiovascular: RRR, no murmur, no edema Gastrointestinal (Abdomen): Inspection/Auscultation: abdomen normal to inspection; abdomen not distended Percussion/Palpation: + abdomen tender (suprapubic) and abdomen soft; no guarding and abdomen not rigid Musculoskeletal: no cyanosis or clubbing, extremities motor strength 5/5 Skin: ulceration on buttocks without overt cellulitic changes Neurologic: moves all extremities and awake; no focal motor deficits and not confused Psychiatric: A+Ox3, euthymic affect Results & Data Results & Data Vital Signs (Past 12 Hours) Vital Signs Temp Pulse Pulse Resp BP BP Pulse Ox 10/25/24 17:00 85 18 133/68 98 10/25/24 16:40 83 10/25/24 15:00 109 H 22 117/78 96 10/25/24 13:06 127 H 24 114/74 100 10/25/24 13:06 10/25/24 13:06 100 10/25/24 12:42 125 H 10/25/24 12:11 36.5 C 132 H 18 136/66 100 O2 Del Method 10/25/24 17:00 Room Air 10/25/24 16:40 10/25/24 15:00 Room Air 10/25/24 13:06 Room Air 10/25/24 13:06 Room Air 10/25/24 13:06 Room Air 10/25/24 12:42 10/25/24 12:11 Room Air Laboratory Results Abnormal lab results 10/25/24 10/25/24 10/25/24 Range/Units 12:38 16:47 18:08 WBC 15.02 H (4.8-10.8) K/ul RBC 3.12 L (4.20-5.40) M/uL Hgb 8.8 L (12.0-16.0) g/dl Hct 28.5 L (37.0-47.0) % MCHC 30.9 L (32.0-36.0) g/dL RDW Std Deviation 49.8 H (36.4-46.3) fL RDW Coeff of Mica 14.9 H (11.5-14.5) % Plt Count 421 H (130-400) K/uL MPV 8.3 L (9.4-12.4) fL Neut # (Auto) 13.47 H (1.40-6.50) K/uL Lymph # (Auto) 0.69 L (1.20-3.40) K/uL [place] # (Auto) 0.71 H (0.11-0.59) K/uL VBG pH (7.36-7.41) VBG pCO2 (38-50) mmHg Sodium 135 L (136-145) mmol/L Chloride 109 H (98-107) mmol/L Carbon Dioxide 13 L (21-32) mmol/L Anion Gap 13 H (3-11) BUN 69 H (6-23) mg/dl Creatinine 2.21 H (0.6-1.2) mg/dl BUN/Creatinine Ratio 31.2 H (10-20) Glucose 147 H (70-99(Fasting)) mg/dl AST 9 L (13-39) U/L ALT 6 L (7-52) U/L Alkaline Phosphatase 419 H (34-104) U/L Troponin I High Sens 26.2 H 32.5 H (0-14) pg/ml Albumin 2.4 L (3.4-5.0) gm/dl Globulin 4.6 H (2.5-4.0) gm/dl Albumin/Globulin Ratio 0.5 L (0.9-2) Procalcitonin 6.77 H (0-0.5) ng/ml Urine Appearance Turbid A (Clear) Urine Protein 3+ H (Negative) Urine Ketones Trace H (Negative) Urine Blood 3+ H (Negative) Urine Nitrite Positive A (Negative) Ur Leukocyte Esterase 3+ H (Negative) Urine WBC (Auto) >50 H (0-5) /hpf Urine RBC (Auto) >20 H (0-2) /hpf U Hyaline Cast (Auto) 3-5 H (0-2) /lpf U Epithel Cells (Auto) 3-5 H (0-2) /hpf Urine Bacteria (Auto) 4+ H (None Seen) 10/25/24 Range/Units 19:16 WBC (4.8-10.8) K/ul RBC (4.20-5.40) M/uL Hgb (12.0-16.0) g/dl Hct (37.0-47.0) % MCHC (32.0-36.0) g/dL RDW Std Deviation (36.4-46.3) fL RDW Coeff of Mica (11.5-14.5) % Plt Count (130-400) K/uL MPV (9.4-12.4) fL Neut # (Auto) (1.40-6.50) K/uL Lymph # (Auto) (1.20-3.40) K/uL [place] # (Auto) (0.11-0.59) K/uL VBG pH 7.21 L (7.36-7.41) VBG pCO2 30 L (38-50) mmHg Sodium (136-145) mmol/L Chloride (98-107) mmol/L Carbon Dioxide (21-32) mmol/L Anion Gap (3-11) BUN (6-23) mg/dl Creatinine (0.6-1.2) mg/dl BUN/Creatinine Ratio (10-20) Glucose (70-99(Fasting)) mg/dl AST (13-39) U/L ALT (7-52) U/L Alkaline Phosphatase (34-104) U/L Troponin I High Sens (0-14) pg/ml Albumin (3.4-5.0) gm/dl Globulin (2.5-4.0) gm/dl Albumin/Globulin Ratio (0.9-2) Procalcitonin (0-0.5) ng/ml Urine Appearance (Clear) Urine Protein (Negative) Urine Ketones (Negative) Urine Blood (Negative) Urine Nitrite (Negative) Ur Leukocyte Esterase (Negative) Urine WBC (Auto) (0-5) /hpf Urine RBC (Auto) (0-2) /hpf U Hyaline Cast (Auto) (0-2) /lpf U Epithel Cells (Auto) (0-2) /hpf Urine Bacteria (Auto) (None Seen) Diagnostic Findings XR chest 1V portable CLINICAL HISTORY: weakness COMPARISON STUDY: Chest radiograph January 27, 2024. Chest CT September 02, 2011. FINDINGS: Lung volumes are normal. A 2.2 cm right midlung elongated density is present. There is no pneumothorax or pleural effusion. Cardiac size is normal. Mediastinal contours are normal. There is no evidence for pulmonary edema. IMPRESSION: 2.2 cm right midlung density. This may reflect a mild infectious process, atelectasis or scarring. However, a pulmonary lesion could appear similar. Follow-up PA and lateral chest radiographs in one month are recommended to ensure resolution. Medications Administered ER Medications Given: Normal saline 500 ml bolus Cefepime 2000mg IV Fentanyl 50 mcg IV Acetaminophen 1000mg IV Normal saline 500ml bolus Normal saline 1000ml bolus Metoprolol 5mg IV ECG Rate (beats per minute): 126 Rhythm: sinus tachycardia Findings: no acute ischemic change Comparison ECG Date: from (January 26, 2024) Change: the following changes noted (ST no longer depressed in lateral leads, T wave flattening in lateral leads now present) Code Status & VTE Plan Code Status DNR/DNI per patient wishes PG Care Time/CCT Total # of Minutes Spent Total Time Spent with Patient: Total time spent is greater than 50% in coordination of care (as documented) at patient's floor/unit and/or counseling patient: Coding Level of Care Code 04346 INT INP/OBS CARE 3/75MIN Diagnoses Sepsis A41.9 Diarrhea R19.7 Abnormal CXR R93.89 Sacral wound S31.000A Metabolic acidosis with normal anion gap and bicarbonate losses E87.20 Hypertension I10 Anemia requiring transfusions D64.9 Elevated alkaline phosphatase level R74.8 Hx pulmonary embolism Z86.711 Urinary tract infection N39.0 CKD (chronic kidney disease) stage 4, GFR 15-29 ml/min N18.4
--- NOTE | 2024-10-25 18:49 | Emergency Department Note ---
Impression & Plan SIRS (systemic inflammatory response syndrome), Ambulatory dysfunction, Pressure ulcer of left hip, Pressure ulcer of right hip, Skin ulcer of perineum, limited to breakdown of skin ED Provider Note CHIEF COMPLAINT: Diarrhea, worsening sacral and perineal wounds HISTORY OF PRESENT ILLNESS: This 74-year-old female patient with past medical history of aspiration, iron deficiency, UTI, anemia presents to the emergency department from home with complaints of significant pain along the perineum and sacrum. The patient states she has had diarrhea for some time and has been unable to keep her self pain. She complains of worsening pressure ulcers, particularly at the sacrum and hips. Patient states she has not been able to eat or drink much recently. She denies any blood in her stools. She states she was at home with her son and 2 granddaughters, 1 of which does help take care of her. REVIEW OF SYSTEMS: A review of systems was performed with positives and pertinent negatives listed in the history of present illness. 10 systems were reviewed and are otherwise negative. ALLERGIES: see below MEDICATIONS: see below PMH: see below SOCIAL HISTORY: see below DDx: Dehydration, acute kidney injury, UTI, C. difficile colitis, infected pressure ulcers, pneumonia among others. PHYSICAL EXAM: Vital signs reviewed. General: Chronically ill-appearing 74-year-old female,, in no significant distress. Thin and frail appearing. HEENT: No scleral icterus, PERRLA, neck supple. Dry mucous membranes.. Cardiovascular: Tachycardic but regular, no extra sounds Pulmonary: Coarse breath sounds to auscultation bilaterally, normal work of breathing. Abdomen: Soft, nontender, nondistended, positive bowel sounds. Musculoskeletal: Atraumatic, no peripheral edema. Posterior ulcer noted to the sacrum and right hip with dried stool on the buttocks. Patient is in a great deal of pain with any palpation : Erythematous perineum with otherwise normal external female genitals, incontinence of urine and stool with poor hygiene overall. Significant skin breakdown. Neurologic: Patient awake alert and oriented x 3, speech is clear Skin: Warm, dry, skin breakdown and pressure ulcers noted to the bilateral hips and sacrum/perineum. EMERGENCY DEPARTMENT COURSE/MDM: This patient was evaluated and appeared to be in no significant distress. IV access was obtained and laboratory work was drawn. Patient was placed on monitor and storage bin tender noted to be in a sinus tachycardia. IV fluids were initiated, a total of 1500 mL of normal saline solution to begin. Patient is noted to have an elevated WBC and procalcitonin but normal lactate. She did respond to fluids well. Blood cultures were obtained and the patient was medicated with IV cefepime. UA is indicative of infection. This will be sent for culture. She was medicated with IV acetaminophen and 25 mcg of IV fentanyl for her discomfort prior to hygiene care. Nursing staff performed BRIGITTE care and placed a Hoang catheter. Patient did receive metoprolol 5 mg as she is on a chronic beta-beverly. Patient's case was discussed with the hospitalist service who evaluated the patient for admission and further management. MONITORING: An order for cardiac monitoring was placed and the patient is noted to be in a sinus tachycardia at 125 beats per minute. RADIOLOGY: Chest x-ray: IMPRESSION: 2.2 cm right midlung density. This may reflect a mild infectious process, atelectasis or scarring. However, a pulmonary lesion could appear similar. Follow-up PA and lateral chest radiographs in one month are recommended to ensure resolution. EKG: To my interpretation reveals a sinus tachycardia at 126 bpm with overall low voltage. QTc of 408. No acute ST change. DISPOSITION: Admission Past Med/Surg History Problem List (Updated 10/31/24 @ 07:03 by Anu Garcia MD) Skin ulcer of perineum, limited to breakdown of skin (Acute) Pressure ulcer of right hip (Acute) Pressure ulcer of left hip (Acute) SIRS (systemic inflammatory response syndrome) (Acute) Persistent wound pain Sacral pain Nonhealing nonsurgical wound Encounter for hospice care discussion Advanced care planning/counseling discussion Palliative care by specialist Elevated alkaline phosphatase level Metabolic acidosis with normal anion gap and bicarbonate losses Abnormal CXR Diarrhea Sepsis Acute hypoxic respiratory failure Aspiration into airway Iron deficiency Ambulatory dysfunction (Acute) Generalized weakness Hyponatremia Urinary tract infection Symptomatic anemia Medical History CKD (chronic kidney disease) stage 4, GFR 15-29 ml/min Generalized weakness COPD (chronic obstructive pulmonary disease) has occasional cough Acute hypoxic respiratory failure 01/2024 "due to huge blood clot in lungs" Wheelchair dependence Ambulatory dysfunction Aspiration into airway 01/2024, admitted to hospital w/UTI, "aspirated and due to this and was resuscitated even though she had a DNR" Factor 5 Leiden mutation, heterozygous Sacral wound "still has, has seen [address]" Asthma inh prn>"rare use" Hypertension Gout Anemia requiring transfusions 01/2024, no current issues Chronic anticoagulation Hx pulmonary embolism 2010 or 2011, 2/2 Factor V Surgical History Hx of left cataract extraction Hx of cholecystectomy Hx of eye surgery in her 30's, for "lazy eye" Family History Other Family history non-contributory Social History Smoking Status: Never smoker Second Hand Exposure: No; Do You Dip or Chew Tobacco: No; Tobacco Cessation Education Requested by Patient: No Hx Alcohol Use: No Hx Substance Use: No Preferred Language: Ukrainian Communication Ability: Effective Belt Molder Required: No Beliefs That Will Affect Care: Orthodoxy marital status: / Current Living Situation: Family Current Living Situation Comment: son and granddaughters live with her current occupational status: employed Other Information That Helps Us Care for You: No Feels Safe at Home: Yes Safety Concerns: Feels Safe At This Time Assistive Devices: Wheelchair Allergies Allergies Allergy/AdvReac Type Severity Reaction Status Date / Time No Known Allergies Allergy Verified 09/17/24 11:54 Home Meds Home Medications Medication Instructions Recorded Confirmed allopurinol 100 mg tablet 100 mg PO QAM 10/23/19 10/25/24 metoprolol tartrate 50 mg tablet 50 mg PO BID 10/23/19 10/25/24 albuterol sulfate 90 mcg/actuation 2 puff inhalation DIRECTED PRN 01/25/24 10/25/24 aerosol inhaler Shortness Of Breath Or Wheezing ondansetron HCl 4 mg tablet 4 mg PO Q8H PRN NAUSEA/VOMITING 01/25/24 10/25/24 silver sulfadiazine 1 % topical 1 applic topical DAILY PRN Skin 01/25/24 10/25/24 cream Irritation acetaminophen 650 mg 650 mg PO DAILY PRN Pain 08/26/24 10/25/24 tablet,extended release apixaban 2.5 mg tablet (Eliquis) 0 mg PO BID 08/26/24 10/25/24 Results & Data (ED) Vital Signs Vital Signs - 24 hr 10/25/24 12:11 10/25/24 12:42 10/25/24 13:06 Temperature 36.5 C Temperature Source Oral Pulse Rate 132 H 125 H Pulse Rate [Right Brachial] Pulse Rhythm Regular Pulse Rhythm [Right Brachial] Pulse Strength Normal Pulse Strength [Right Brachial] Respiratory Rate 18 Respiratory Effort / Characteristics Non-Labored Respiratory Depth Normal Respiratory Pattern Regular Blood Pressure 136/66 Blood Pressure [Right Arm] Blood Pressure Mean 89 Blood Pressure Mean [Right Arm] Blood Pressure Position Lying Blood Pressure Position [Right Arm] Pulse Oximetry 100 100 Oxygen Delivery Method Room Air Room Air Sepsis Recent Fever Within 48 Hours No Sepsis New/Unexplained Change in Mental Status No Sepsis Action Taken by Nursing No Action Required 10/25/24 13:06 10/25/24 13:06 10/25/24 15:00 Temperature Temperature Source Pulse Rate Pulse Rate [Right Brachial] 127 H 109 H Pulse Rhythm Pulse Rhythm [Right Brachial] Regular Regular Pulse Strength Pulse Strength [Right Brachial] Normal Normal Respiratory Rate 24 22 Respiratory Effort / Characteristics Non-Labored Non-Labored Respiratory Depth Normal Normal Respiratory Pattern Regular Regular Blood Pressure Blood Pressure [Right Arm] 114/74 117/78 Blood Pressure Mean Blood Pressure Mean [Right Arm] 87 91 Blood Pressure Position Blood Pressure Position [Right Arm] Lying Lying Pulse Oximetry 100 96 Oxygen Delivery Method Room Air Room Air Room Air Sepsis Recent Fever Within 48 Hours Sepsis New/Unexplained Change in Mental Status Sepsis Action Taken by Nursing 10/25/24 16:40 10/25/24 17:00 10/25/24 19:00 Temperature Temperature Source Pulse Rate 83 Pulse Rate [Right Brachial] 85 86 Pulse Rhythm Pulse Rhythm [Right Brachial] Regular Pulse Strength Pulse Strength [Right Brachial] Normal Respiratory Rate 18 18 Respiratory Effort / Characteristics Non-Labored Respiratory Depth Normal Respiratory Pattern Regular Blood Pressure Blood Pressure [Right Arm] 133/68 135/74 Blood Pressure Mean Blood Pressure Mean [Right Arm] 89 94 Blood Pressure Position Blood Pressure Position [Right Arm] Lying Pulse Oximetry 98 96 Oxygen Delivery Method Room Air Room Air Sepsis Recent Fever Within 48 Hours Sepsis New/Unexplained Change in Mental Status Sepsis Action Taken by Alf Medications Current Medication List: was personally reviewed by me Laboratory Data Attestation: I reviewed the patient's lab results. 10/29/24 05:30 10/29/24 05:30 Lab Results 10/25/24 10/25/24 10/25/24 Range/Units 12:38 14:49 16:47 WBC 15.02 H (4.8-10.8) K/ul RBC 3.12 L (4.20-5.40) M/uL Hgb 8.8 L (12.0-16.0) g/dl Hct 28.5 L (37.0-47.0) % MCV 91.3 (80.0-100.0) fL MCH 28.2 (25.0-34.0) pg MCHC 30.9 L (32.0-36.0) g/dL RDW Std Deviation 49.8 H (36.4-46.3) fL RDW Coeff of Mica 14.9 H (11.5-14.5) % Plt Count 421 H (130-400) K/uL MPV 8.3 L (9.4-12.4) fL Immature Gran % (Auto) 0.7 % Neut % (Auto) 89.7 % Lymph % (Auto) 4.6 % [place] % (Auto) 4.7 % Eos % (Auto) 0.0 % Baso % (Auto) 0.3 % Neut # (Auto) 13.47 H (1.40-6.50) K/uL Lymph # (Auto) 0.69 L (1.20-3.40) K/uL [place] # (Auto) 0.71 H (0.11-0.59) K/uL Eos # (Auto) 0.00 (0.00-0.50) K/uL Baso # (Auto) 0.04 (0.00-0.20) K/uL Immature Gran # (Auto) 0.11 (0.01-0.20) K/uL Sodium 135 L (136-145) mmol/L Potassium 4.9 (3.5-5.1) mmol/L Chloride 109 H (98-107) mmol/L Carbon Dioxide 13 L (21-32) mmol/L Anion Gap 13 H (3-11) BUN 69 H (6-23) mg/dl Creatinine 2.21 H (0.6-1.2) mg/dl Est Cr Clr Drug Dosing 17.9 ml/min eGFR 22.54 BUN/Creatinine Ratio 31.2 H (10-20) Glucose 147 H (70-99(Fasting)) mg/dl Lactate 0.8 (0.4-2.0) mmol/L Calcium 8.6 (8.6-10.3) mg/dl Magnesium 1.7 (1.7-2.4) mg/dl Total Bilirubin 0.5 (0.2-1.0) mg/dl AST 9 L (13-39) U/L ALT 6 L (7-52) U/L Alkaline Phosphatase 419 H (34-104) U/L Troponin I High Sens 26.2 H 32.5 H (0-14) pg/ml Total Protein 7.0 (6.0-8.3) gm/dl Albumin 2.4 L (3.4-5.0) gm/dl Globulin 4.6 H (2.5-4.0) gm/dl Albumin/Globulin Ratio 0.5 L (0.9-2) Procalcitonin 6.77 H (0-0.5) ng/ml TSH 3.307 (0.300-4.500) uIu/ml Urine Color Urine Appearance (Clear) Urine pH (4.5-7.5) Ur Specific [place] (1.000-1.030) Urine Protein (Negative) Urine Glucose (UA) (Negative) Urine Ketones (Negative) Urine Blood (Negative) Urine Nitrite (Negative) Urine Bilirubin (Negative) Urine Urobilinogen (Negative) Ur Leukocyte Esterase (Negative) Urine WBC (Auto) (0-5) /hpf Urine RBC (Auto) (0-2) /hpf U Hyaline Cast (Auto) (0-2) /lpf U Epithel Cells (Auto) (0-2) /hpf Urine Bacteria (Auto) (None Seen) 10/25/24 Range/Units 18:08 WBC (4.8-10.8) K/ul RBC (4.20-5.40) M/uL Hgb (12.0-16.0) g/dl Hct (37.0-47.0) % MCV (80.0-100.0) fL MCH (25.0-34.0) pg MCHC (32.0-36.0) g/dL RDW Std Deviation (36.4-46.3) fL RDW Coeff of Mica (11.5-14.5) % Plt Count (130-400) K/uL MPV (9.4-12.4) fL Immature Gran % (Auto) % Neut % (Auto) % Lymph % (Auto) % [place] % (Auto) % Eos % (Auto) % Baso % (Auto) % Neut # (Auto) (1.40-6.50) K/uL Lymph # (Auto) (1.20-3.40) K/uL [place] # (Auto) (0.11-0.59) K/uL Eos # (Auto) (0.00-0.50) K/uL Baso # (Auto) (0.00-0.20) K/uL Immature Gran # (Auto) (0.01-0.20) K/uL Sodium (136-145) mmol/L Potassium (3.5-5.1) mmol/L Chloride (98-107) mmol/L Carbon Dioxide (21-32) mmol/L Anion Gap (3-11) BUN (6-23) mg/dl Creatinine (0.6-1.2) mg/dl Est Cr Clr Drug Dosing ml/min eGFR BUN/Creatinine Ratio (10-20) Glucose (70-99(Fasting)) mg/dl Lactate (0.4-2.0) mmol/L Calcium (8.6-10.3) mg/dl Magnesium (1.7-2.4) mg/dl Total Bilirubin (0.2-1.0) mg/dl AST (13-39) U/L ALT (7-52) U/L Alkaline Phosphatase (34-104) U/L Troponin I High Sens (0-14) pg/ml Total Protein (6.0-8.3) gm/dl Albumin (3.4-5.0) gm/dl Globulin (2.5-4.0) gm/dl Albumin/Globulin Ratio (0.9-2) Procalcitonin (0-0.5) ng/ml TSH (0.300-4.500) uIu/ml Urine Color Yellow Urine Appearance Turbid A (Clear) Urine pH 6.0 (4.5-7.5) Ur Specific [place] 1.016 (1.000-1.030) Urine Protein 3+ H (Negative) Urine Glucose (UA) Negative (Negative) Urine Ketones Trace H (Negative) Urine Blood 3+ H (Negative) Urine Nitrite Positive A (Negative) Urine Bilirubin Negative (Negative) Urine Urobilinogen Negative (Negative) Ur Leukocyte Esterase 3+ H (Negative) Urine WBC (Auto) >50 H (0-5) /hpf Urine RBC (Auto) >20 H (0-2) /hpf U Hyaline Cast (Auto) 3-5 H (0-2) /lpf U Epithel Cells (Auto) 3-5 H (0-2) /hpf Urine Bacteria (Auto) 4+ H (None Seen) Administered Medications Acetaminophen (Acetaminophen 500 Mg Tab) 1,000 mg PO TID TORRI Stop: 11/29/24 08:59 Last Admin: 10/30/24 22:02 Dose: 1,000 mg Documented By: Admin: 10/30/24 13:23 Dose: Not Given Documented By: Admin: 10/30/24 08:52 Dose: 1,000 mg Documented By: ADRIAN Allopurinol (Allopurinol 100 Mg Tab) 100 mg PO QAM TORRI Stop: 11/25/24 08:59 Last Admin: 10/30/24 08:53 Dose: 100 mg Documented By: Admin: 10/28/24 20:33 Dose: 100 mg Documented By: Admin: 10/28/24 08:20 Dose: 100 mg Documented By: Admin: 10/27/24 10:10 Dose: Not Given Documented By: Admin: 10/26/24 09:51 Dose: 100 mg Documented By: LYSSA Heparin Sodium (Porcine) (Heparin Sod 5,000 Unit/0.5 Ml Vial) 5,000 units SQ Q12 TORRI Stop: 11/25/24 08:59 Last Admin: 10/30/24 22:04 Dose: 5,000 units Documented By: Admin: 10/30/24 08:52 Dose: 5,000 units Documented By: Admin: 10/29/24 21:44 Dose: 5,000 units Documented By: Admin: 10/29/24 08:54 Dose: 5,000 units Documented By: Admin: 10/28/24 20:37 Dose: 5,000 units Documented By: Admin: 10/28/24 08:23 Dose: 5,000 units Documented By: Admin: 10/27/24 20:11 Dose: 5,000 units Documented By: Admin: 10/27/24 09:52 Dose: 5,000 units Documented By: Admin: 10/26/24 21:36 Dose: 5,000 units Documented By: Admin: 10/26/24 09:51 Dose: 5,000 units Documented By: LYSSA Prochlorperazine 5 mg/ Syringe 5 mls @ 5 mls/min IV Q6H PRN PRN Reason: Nausea And Vomiting Stop: 11/26/24 10:09 Last Admin: 10/27/24 14:39 Dose: 5 mls/min Documented By: LYSSA Ceftriaxone Sodium (Rocephin) 1,000 mg in 50 mls @ 100 mls/hr IV Q24H TORRI Stop: 11/03/24 10:59 Last Infusion: 10/30/24 15:43 Dose: Infused Documented By: Admin: 10/30/24 12:28 Dose: 100 mls/hr Documented By: Infusion: 10/29/24 14:02 Dose: Infused Documented By: Admin: 10/29/24 13:00 Dose: 100 mls/hr Documented By: MELIDA Metoprolol Tartrate (Metoprolol Tartrate 50 Mg Tab) 50 mg PO BID [facility] Stop: 11/24/24 21:44 Last Admin: 10/30/24 22:03 Dose: 50 mg Documented By: Admin: 10/30/24 08:54 Dose: 50 mg Documented By: Admin: 10/29/24 21:45 Dose: 50 mg Documented By: Admin: 10/29/24 08:47 Dose: 50 mg Documented By: Admin: 10/28/24 21:38 Dose: 50 mg Documented By: Admin: 10/28/24 08:20 Dose: 50 mg Documented By: Admin: 10/27/24 20:08 Dose: 50 mg Documented By: Admin: 10/27/24 10:00 Dose: Not Given Documented By: Admin: 10/26/24 21:36 Dose: 50 mg Documented By: Admin: 10/26/24 09:51 Dose: 50 mg Documented By: Admin: 10/25/24 22:07 Dose: 50 mg Documented By: BAYLEE Morphine Sulfate (Morphine Sulfate 2 Mg/Ml Carp) 2 mg IV Q4H PRN PRN Reason: pain,dyspnea,woundcare, Stop: 11/09/24 01:58 Last Admin: 10/31/24 06:05 Dose: 2 mg Documented By: Admin: 10/30/24 16:20 Dose: 2 mg Documented By: Admin: 10/30/24 08:53 Dose: 2 mg Documented By: Admin: 10/29/24 21:44 Dose: 2 mg Documented By: Admin: 10/29/24 12:59 Dose: 2 mg Documented By: MELIDA Ondansetron HCl (Ondansetron Inj 2 Mg/Ml 2 Ml Vial) 4 mg IV Q6H PRN PRN Reason: Nausea And Vomiting Stop: 11/26/24 07:22 Last Admin: 10/29/24 08:54 Dose: 4 mg Documented By: Admin: 10/28/24 10:48 Dose: 4 mg Documented By: Admin: 10/27/24 07:34 Dose: 4 mg Documented By: LYSSA Polyethylene Glycol (Polyethylene (Miralax) 17 Gm Pack) 17 gm PO DAILY [facility] Stop: 11/26/24 12:14 Last Admin: 10/30/24 08:54 Dose: Not Given Documented By: Admin: 10/29/24 08:46 Dose: Not Given Documented By: Admin: 10/28/24 08:19 Dose: Not Given Documented By: Admin: 10/27/24 12:33 Dose: Not Given Documented By: LYSSA Senna/Docusate Sodium (Docusate Sodium/Senna 50/8.6mg Tab) 2 tab PO QAM TORRI Stop: 11/29/24 08:59 Last Admin: 10/30/24 08:54 Dose: Not Given Documented By: ADRIAN Tramadol HCl (Tramadol Hcl 50 Mg Tablet) 50 mg PO BID TORRI Stop: 11/29/24 20:59 Last Admin: 10/30/24 22:02 Dose: 50 mg Documented By: ALTAGRACIA Discontinued Medications Fentanyl Citrate (Fentanyl Citrate Pf 100 Mcg/2 Ml Vial) 50 mcg IV NOW STA Stop: 10/25/24 14:17 Last Admin: 10/25/24 14:33 Dose: 50 mcg Documented By: ILYA Sodium Chloride (Nss) 500 mls @ 999 mls/hr IV .Q31M ONE Stop: 10/25/24 13:46 Last Infusion: 10/25/24 14:16 Dose: Infused Documented By: Admin: 10/25/24 13:36 Dose: 999 mls/hr Documented By: ILYA Cefepime HCl (Maxipime 2000mg) 2,000 mg in 20 mls @ 5 mls/min IV NOW STA; Protocol Stop: 10/25/24 13:19 Last Admin: 10/25/24 13:36 Dose: 5 mls/min Documented By: ILYA Acetaminophen (Ofirmev) 1,000 mg in 100 mls @ 400 mls/hr IV NOW STA Stop: 10/25/24 14:30 Last Infusion: 10/25/24 14:56 Dose: Infused Documented By: Admin: 10/25/24 14:33 Dose: 400 mls/hr Documented By: ILYA Sodium Chloride (Nss) 500 mls @ 999 mls/hr IV .Q31M ONE Stop: 10/25/24 14:47 Last Infusion: 10/25/24 15:09 Dose: Infused Documented By: Admin: 10/25/24 14:34 Dose: 999 mls/hr Documented By: ILYA Sodium Chloride (Nss) 1,000 mls @ 999 mls/hr IV .Q1H1M ONE Stop: 10/25/24 16:46 Last Infusion: 10/25/24 17:48 Dose: Infused Documented By: Admin: 10/25/24 16:03 Dose: 999 mls/hr Documented By: ILYA Sodium Bicarbonate 150 meq/ (Dextrose) 1,150 mls @ 100 mls/hr IV .[id number] TORRI Stop: 11/24/24 22:14 Last Infusion: 10/28/24 11:25 Dose: Infused Documented By: Admin: 10/28/24 03:08 Dose: 100 mls/hr Documented By: Infusion: 10/28/24 01:33 Dose: Infused Documented By: Admin: 10/27/24 14:03 Dose: 100 mls/hr Documented By: Infusion: 10/27/24 14:00 Dose: Infused Documented By: Admin: 10/27/24 02:30 Dose: 100 mls/hr Documented By: Infusion: 10/27/24 02:26 Dose: Infused Documented By: Admin: 10/26/24 12:43 Dose: 100 mls/hr Documented By: Infusion: 10/26/24 10:13 Dose: Infused Documented By: Admin: 10/25/24 22:43 Dose: 100 mls/hr Documented By: BAYLEE Cefepime HCl (Maxipime 2000mg) 1,000 mg in 10 mls @ 5 mls/min IV Q12H TORRI; Protocol Stop: 10/28/24 01:59 Last Admin: 10/27/24 14:03 Dose: 5 mls/min Documented By: Admin: 10/27/24 01:13 Dose: 5 mls/min Documented By: Admin: 10/26/24 13:43 Dose: 5 mls/min Documented By: Admin: 10/26/24 02:08 Dose: 5 mls/min Documented By: BAYLEE Magnesium Sulfate/Dextrose (Magnesium Sulfate / D5w) 1 gm in 100 mls @ 50 mls/hr IV ONE ONE Stop: 10/29/24 10:17 Last Infusion: 10/29/24 10:58 Dose: Infused Documented By: Admin: 10/29/24 08:48 Dose: 50 mls/hr Documented By: MELIDA Metoprolol Tartrate (Metoprolol Tartrate 1 Mg/Ml Vial) 5 mg IV NOW STA Stop: 10/25/24 15:48 Last Admin: 10/25/24 16:02 Dose: 5 mg Documented By: ILYA Morphine Sulfate (Morphine Sulfate 2 Mg/Ml Carp) 2 mg IV Q3H PRN PRN Reason: Pain 7-10 Stop: 11/09/24 01:58 Last Admin: 10/28/24 03:31 Dose: 2 mg Documented By: Admin: 10/27/24 12:59 Dose: 2 mg Documented By: Admin: 10/27/24 04:12 Dose: 2 mg Documented By: Admin: 10/27/24 01:13 Dose: 2 mg Documented By: Admin: 10/26/24 21:33 Dose: 2 mg Documented By: Admin: 10/26/24 18:12 Dose: 2 mg Documented By: Admin: 10/26/24 12:47 Dose: 2 mg Documented By: LYSSA Morphine Sulfate (Morphine Sulfate 2 Mg/Ml Carp) 1 mg IV Q6H TORRI Stop: 11/11/24 15:29 Last Admin: 10/30/24 03:45 Dose: 1 mg Documented By: Admin: 10/29/24 21:48 Dose: Not Given Documented By: Admin: 10/29/24 16:29 Dose: 1 mg Documented By: Admin: 10/29/24 08:53 Dose: 1 mg Documented By: Admin: 10/29/24 04:32 Dose: 1 mg Documented By: Admin: 10/28/24 21:39 Dose: 1 mg Documented By: Admin: 10/28/24 16:03 Dose: 1 mg Documented By: MELIDA Potassium Chloride (Potassium Chloride Crtab 20 Meq Tabcr) 20 meq PO NOW STA Stop: 10/28/24 16:36 Last Admin: 10/28/24 18:24 Dose: 20 meq Documented By: MELIDA Potassium Chloride (Potassium Chloride Crtab 20 Meq Tabcr) 40 meq PO NOW STA Stop: 10/29/24 08:19 Last Admin: 10/29/24 08:47 Dose: 40 meq Documented By: MELIDA Senna/Docusate Sodium (Docusate Sodium/Senna 50/8.6mg Tab) 1 tab PO QAM TORRI Stop: 11/28/24 08:59 Last Admin: 10/29/24 08:46 Dose: Not Given Documented By: MELIDA Imaging Data Radiologist's Impression: Chest X-Ray 10/25/24 12:47 XR chest 1V portable CLINICAL HISTORY: weakness COMPARISON STUDY: Chest radiograph January 27, 2024. Chest CT September 02, 2011. FINDINGS: Lung volumes are normal. A 2.2 cm right midlung elongated density is present. There is no pneumothorax or pleural effusion. Cardiac size is normal. Mediastinal contours are normal. There is no evidence for pulmonary edema. IMPRESSION: 2.2 cm right midlung density. This may reflect a mild infectious process, atelectasis or scarring. However, a pulmonary lesion could appear similar. Follow-up PA and lateral chest radiographs in one month are recommended to ensure resolution. ACT 112: Positive. There are findings on this exam that require communication between the performing entity and the patient following Patient Test Result Information Act ([place] Act 112) guidelines. Electronically signed by: Regulo Justice M.D. 10/25/2024 1:23 PM Discharge Plan Visit Data Chief Complaint: Weakness Stated Complaint: WEAKNESS, DIARRHEA, PRESSURE SORE ON BUTTOCKS ED Provider: Anu Garcia Discharge Problem: SIRS (systemic inflammatory response syndrome), Ambulatory dysfunction, Pressure ulcer of left hip, Pressure ulcer of right hip, Skin ulcer of perineum, limited to breakdown of skin Patient Disposition: Admitted As Inpatient Discharge Instructions Interventions: ED Discharge Assessment Last Done: 10/25/24 20:51 Discharge Problem: Pressure ulcer of left hip Qualifiers: Pressure injury stage: unspecified pressure injury stage Qualified Code(s): L 89.229 - Pressure ulcer of left hip, unspecified stage Pressure ulcer of right hip Qualifiers: Pressure injury stage: unspecified pressure injury stage Qualified Code(s): L 89.219 - Pressure ulcer of right hip, unspecified stage
[2024-10-25 19:22] LABS: Base Excess VBG -14.5 mEq/L; HCO3 VBG 12 mmol/L; Oxygen Saturation VBG 62.8 %; PCO2 VBG 30 mmHg (38-50); PO2 VBG 38 mmHg; pH VBG 7.21 (7.36-7.41)
[2024-10-25] MEDS: METOPROLOL TARTRATE 50 MG TAB PO SCH (22:07)
[2024-10-25] MEDS ORDERED: STAT IV/IM STA (22:13)
[2024-10-25] MEDS: SODIUM BICARBONATE 8.4% 150 MEQ in DEXTROSE 5% 1,000 ML IV SCH (22:43)
--- NOTE | 2024-10-25 23:01 | CT Scan Report ---
Exam(s): CT ABDOMEN + PELVIS Without Contrast EXAM: CT Abdomen and Pelvis Without Intravenous Contrast CLINICAL HISTORY: Reason for exam: sepsis, diarrhea ?source ?vertebral osteomyelitis. TECHNIQUE: Axial computed tomography images of the abdomen and pelvis without intravenous contrast. CTDI is 18.98 mGy and DLP is 895.72 mGy-cm. Automated exposure control was utilized for the study. A dose lowering technique was utilized adhering to the principles of ALARA. COMPARISON: No relevant prior studies available. FINDINGS: Lung bases: Unremarkable. No mass. No consolidation. ABDOMEN: Liver: Unremarkable. Gallbladder and bile ducts: Postoperative changes prior cholecystectomy. No ductal dilation. Pancreas: Unremarkable. No ductal dilation. Spleen: Unremarkable. No splenomegaly. Adrenals: Unremarkable. No mass. Kidneys and ureters: Unremarkable. No obstructing stones. No hydronephrosis. Stomach and bowel: Large amount of stool within the rectum. Few scattered colonic diverticuli without evidence of diverticulitis. Unremarkable. Specifically no evidence of osteomyelitis. PELVIS: Appendix: No findings to suggest acute appendicitis. Bladder: Hoang catheter within the urinary bladder. No stones. Reproductive: Unremarkable as visualized. ABDOMEN and PELVIS: Intraperitoneal space: Unremarkable. No free air. No significant fluid collection. Bones/joints: See above. Soft tissues: Unremarkable. Vasculature: Unremarkable. No abdominal aortic aneurysm. Lymph nodes: Unremarkable. No enlarged lymph nodes. IMPRESSION: No acute findings in the abdomen or pelvis. Large amount of stool within the rectum. This may represent constipation. No CT evidence to suggest osteomyelitis on this study. Electronically signed by: Alfonso Coombs MD 10/25/24 22:59 PM
[2024-10-26] MEDS ORDERED: MoRPHine SULFATE 2 MG/ML CARP IV PRN (01:59)
[2024-10-26] MEDS ORDERED: ACETAMINOPHEN 325 MG TAB PO PRN (01:59)
[2024-10-26] MEDS: CEFEPIME 1000MG 1,000 MG/10 ML SYR IV SCH (02:08)
[2024-10-26 07:06] LABS: Base Excess VBG -8.8 mEq/L; HCO3 VBG 17 mmol/L; Oxygen Saturation VBG < 60.0 %; PCO2 VBG 34 mmHg (38-50); PO2 VBG 21 mmHg
[2024-10-26 07:14] LABS: Basophils # (auto) 0.03 K/uL (0.00-0.20); Basophils % (auto) 0.3 %; Eosinophils # (auto) 0.07 K/uL (0.00-0.50); Eosinophils % (auto) 0.6 %; Hematocrit (blood only) 22.4 % (37.0-47.0); Hemoglobin 7.1 g/dl (12.0-16.0); Immature Granulocytes # (auto) 0.05 K/uL (0.01-0.20); Immature Granulocytes % (auto) 0.5 %; Lymphocytes # (auto) 0.59 K/uL (1.20-3.40); Lymphocytes % (auto) 5.5 %; Mean Corpuscular Hemoglobin 28.5 pg (25.0-34.0); Mean Corpuscular Hgb Conc 31.7 g/dL (32.0-36.0); Mean Platelet Volume 8.1 fL (9.4-12.4); Monocytes # (auto) 0.53 K/uL (0.11-0.59); Monocytes % (auto) 4.9 %; Neutrophils # (auto) 9.52 K/uL (1.40-6.50); Neutrophils % (auto) 88.2 %; Platelet Count 320 K/uL (130-400); RDW Coefficient of Variation 14.7 % (11.5-14.5); RDW Standard Deviation 48.2 fL (36.4-46.3); Red Blood Count 2.49 M/uL (4.20-5.40); White Blood Count 10.79 K/ul (4.8-10.8)
[2024-10-26 07:34] LABS: Albumin Level 1.9 gm/dl (3.4-5.0); BUN Creatinine Ratio 32.6 (10-20); Bilirubin,Total 0.4 mg/dl (0.2-1.0); Calcium 7.8 mg/dl (8.6-10.3); Creatinine Clr Calc Pharmacy 22.6 ml/min; Magnesium 1.4 mg/dl (1.7-2.4); Phosphorus 4.2 mg/dl (2.5-4.9); Total Protein 5.8 gm/dl (6.0-8.3)
[2024-10-26 07:37] LABS: Polychromasia 1+
--- NOTE | 2024-10-26 07:52 | Electrocardiogram Report ---
Test Reason : Blood Pressure : */* mmHG Vent. Rate : 126 BPM Atrial Rate : 126 BPM P-R Int : 166 ms QRS Dur : 64 ms QT Int : 282 ms P-R-T Axes : 105 24 86 degrees QTcB Int : 408 ms Sinus tachycardia Low voltage QRS Cannot rule out Anterior infarct , age undetermined Abnormal ECG When compared with ECG of 26-Jan-2024 18:30, Nonspecific T wave abnormality now evident in Lateral leads Confirmed by Pramod Terrazas ([id number]) on 10/26/2024 7:52:11 AM Referred By: Confirmed By: Pramod Terrazas
[2024-10-26 07:54] LABS: Ferritin 334.1 ng/ml (8-388)
[2024-10-26 07:58] LABS: Albumin Globulin Ratio 0.5 (0.9-2); Globulin 3.9 gm/dl (2.5-4.0); Potassium 4.1 mmol/L (3.5-5.1)
[2024-10-26 07:59] LABS: Folate (Folic Acid),Ser orPlas 6.93 ng/ml (>5.38)
[2024-10-26] MEDS: allopurinoL 100 MG TAB PO SCH (09:51)
[2024-10-26] MEDS: HEPARIN SOD 5,000 UNIT/0.5 ML VIAL SQ SCH (09:51)
[2024-10-26 12:32] LABS: Adenovirus F 40/41 PCR Not Detected (NotDetected); Astrovirus PCR Not Detected (NotDetected); Campylobacter PCR Not Detected (NotDetected); Cryptosporidium PCR Not Detected (NotDetected); Cyclospora cayetanensis PCR Not Detected (NotDetected); Entamoeba histolytica PCR Not Detected (NotDetected); Enteroaggregative E.coli(EAEC) Not Detected (NotDetected); Enteropathogenic E.coli (EPEC) Not Detected (NotDetected); Enterotoxigenic E.coli (ETEC) Not Detected (NotDetected); Giardia lamblia PCR Not Detected (NotDetected); Norovirus GI/GII PCR Not Detected (NotDetected); Plesiomonas shigelloides PCR Not Detected (NotDetected); Rotavirus A PCR Not Detected (NotDetected); Salmonella PCR Not Detected (NotDetected); Sapovirus PCR Not Detected (NotDetected); Shiga-like Toxin E.coli (STEC) Not Detected (NotDetected); Shigella/Enteroinvasive E.coli Not Detected (NotDetected); Vibrio cholerae PCR Not Detected (NotDetected); Vibrio species PCR Not Detected (NotDetected); Yersinia enterocolitica PCR Not Detected (NotDetected)
[2024-10-26] MEDS: MoRPHine SULFATE 2 MG/ML CARP IV PRN (12:47)
--- NOTE | 2024-10-26 22:18 | Hospitalist Progress Note ---
Date of Service October 26, 2024 Assessment & Plan (1) Sepsis: Plan: Follow up blood and urine cultures Suspected urinary source for initial workup vs decubitus ulcer which was presnet on admission. CT A/P wo IV contrast to assess for alternative source vs. stone vs. pancolitis (suprapubic pain on exam) IV cefepime pending further workup Placed palliative care workup as patient is complaining of significant pain and feels quality of life has deteriorated. wound care consulted. (2) Diarrhea: Plan: Watery Stool and c. diff PCR pending CT A/P pending (3) Abnormal CXR: Plan: Doubtful cause of her sepsis given small area Follow up CXR in 4-6 weeks to check for resolution (4) Sacral wound: Plan: Consult wound care Unable to adequately assess in the ER due to pain and difficulty on rolling (5) Metabolic acidosis with normal anion gap and bicarbonate losses: Plan: Mostly NAGMA (mild anion gap) ?due to diarrhea, ?just from CKD and needs sodium bicarb Start Sodium bicarb 150 meq in D5W @ 100ml/hr (6) Hypertension: Plan: Continue metoprolol to avoid rebound hypertension (7) Anemia requiring transfusions: Plan: At baseline Ferritin, iron studies, B12, folate, retic count, LDH with AM labs (8) Elevated alkaline phosphatase level: Plan: Concerning for bone involvement ?underlying osteomyelitis, CT A/P pending Repeat with AM labs (9) Hx pulmonary embolism: Plan: 2010 or 2011. Unclear if she should still be taking Eliquis, discontinued during last admission and not picked up since January (10) Urinary tract infection: (11) CKD (chronic kidney disease) stage 4, GFR 15-29 ml/min: Plan: At baseline continue to monitor closely for deterioration Plan VTE Prophyalxis - heparin 5000 units SQ BID (unclear if she should still be taking Eliquis as last picked up in January) Diet - regular Disposition - admit to PCU Admission and Anticipated Discharge Date Admission Date: October 25, 2024 Subjective 74 yo female reports no new symptoms Review of Systems Review of Systems: All systems reviewed & are unremarkable except as noted in HPI & below Physical Exam Constitutional: well developed; + not well nourished and no acute distress Eyes: PERRL, conjunctivae normal, anicteric sclerae ENMT: external ear and nose normal, oropharynx normal Respiratory: normal respiratory effort, lungs clear to auscultation Cardiovascular: RRR, no murmur, no edema Gastrointestinal (Abdomen): Inspection/Auscultation: abdomen normal to inspection; abdomen not distended Percussion/Palpation: + abdomen tender (suprapubic) and abdomen soft; no guarding and abdomen not rigid Musculoskeletal: no cyanosis or clubbing, extremities motor strength 5/5 Skin: ulceration on buttocks without overt cellulitic changes Neurologic: moves all extremities and awake; no focal motor deficits and not confused Psychiatric: A+Ox3, euthymic affect Results & Data Results & Data Vital Signs (Past 12 Hours) Vital Signs Temp Pulse Pulse Resp BP Pulse Ox O2 Del Method 10/26/24 19:43 36.6 C 78 18 121/65 98 Room Air 10/26/24 16:00 75 10/26/24 15:36 37.2 C 76 17 109/58 L 99 Room Air 10/26/24 12:00 36.6 C 76 18 118/62 96 Room Air PG Care Time/CCT Total # of Minutes Spent Total Time Spent with Patient: Total time spent is greater than 50% in coordination of care (as documented) at patient's floor/unit and/or counseling patient: Coding Level of Care Code 47136 SUB INP/OBS CARE 2/35MIN Diagnoses Sepsis A41.9 Diarrhea R19.7 Abnormal CXR R93.89 Sacral wound S31.000A Metabolic acidosis with normal anion gap and bicarbonate losses E87.20 Hypertension I10 Anemia requiring transfusions D64.9 Elevated alkaline phosphatase level R74.8 Hx pulmonary embolism Z86.711 Urinary tract infection N39.0 CKD (chronic kidney disease) stage 4, GFR 15-29 ml/min N18.4
[2024-10-27] MEDS ORDERED: Nursing to Pharmacy Communication SCH (01:15)
[2024-10-27] MEDS: ONDANSETRON INJ 2 MG/ML 2 ML VIAL IV PRN (07:34)
[2024-10-27] MEDS: POLYETHYLENE (MIRALAX) 17 GM PACK PO SCH (12:33)
[2024-10-27] MEDS: PROCHLORPERAZINE 5 MG in SYRINGE 4 ML IV PRN (14:39)
--- NOTE | 2024-10-27 21:31 | Hospitalist Progress Note ---
Date of Service October 27, 2024 Assessment & Plan (1) Sepsis: Plan: Follow up blood and urine cultures Suspected urinary source for initial workup vs decubitus ulcer which was presnet on admission. CT A/P wo IV contrast to assess for alternative source vs. stone vs. pancolitis (suprapubic pain on exam) IV cefepime Placed palliative care consult as patient is complaining of significant pain and feels quality of life has deteriorated. wound care consulted. (2) Diarrhea: Plan: Watery Stool and c. diff PCR negative CT A/P negative except for stool in rectum ordered miralax Patient has had BMs. will repeat KUB in AM of 10/28 (3) Abnormal CXR: Plan: Doubtful cause of her sepsis given small area Follow up CXR in 4-6 weeks to check for resolution (4) Sacral wound: Plan: Consult wound care Unable to adequately assess in the ER due to pain and difficulty on rolling (5) Metabolic acidosis with normal anion gap and bicarbonate losses: Plan: Mostly NAGMA (mild anion gap) ?due to diarrhea, ?just from CKD and needs sodium bicarb Start Sodium bicarb 150 meq in D5W @ 100ml/hr (6) Hypertension: Plan: Continue metoprolol to avoid rebound hypertension (7) Anemia requiring transfusions: Plan: At baseline Ferritin, iron studies, B12, folate, retic count, LDH with AM labs (8) Elevated alkaline phosphatase level: Plan: Concerning for bone involvement ?underlying osteomyelitis, CT A/P completed: negative Repeat with AM labs (9) Hx pulmonary embolism: Plan: 2010 or 2011. Unclear if she should still be taking Eliquis, discontinued during last admission and not picked up since January (10) Urinary tract infection: (11) CKD (chronic kidney disease) stage 4, GFR 15-29 ml/min: Plan: At baseline continue to monitor closely for deterioration Plan VTE Prophyalxis - heparin 5000 units SQ BID (unclear if she should still be taking Eliquis as last picked up in January) Diet - regular Disposition - admit to PCU Admission and Anticipated Discharge Date Admission Date: October 25, 2024 Subjective Patient interested in hospice. Physical Exam Constitutional: well developed Eyes: PERRL, conjunctivae normal, anicteric sclerae ENMT: external ear and nose normal, oropharynx normal Respiratory: normal respiratory effort, lungs clear to auscultation Cardiovascular: RRR, no murmur, no edema Gastrointestinal (Abdomen): Inspection/Auscultation: abdomen normal to inspection; abdomen not distended Percussion/Palpation: abdomen soft; abdomen nontender, no guarding and abdomen not rigid Musculoskeletal: no cyanosis or clubbing, extremities motor strength 5/5 Neurologic: moves all extremities and awake; no focal motor deficits and not confused Psychiatric: A+Ox3, euthymic affect Results & Data Results & Data Vital Signs (Past 12 Hours) Vital Signs Temp Pulse Pulse Resp BP Pulse Ox O2 Del Method 10/27/24 20:20 36.4 C L 68 16 122/62 99 Room Air 10/27/24 15:20 36.5 C 69 17 120/56 L 99 Room Air 10/27/24 15:00 69 10/27/24 11:46 36.5 C 59 L 18 128/79 97 Room Air PG Care Time/CCT Total # of Minutes Spent Total Time Spent with Patient: Total time spent is greater than 50% in coordination of care (as documented) at patient's floor/unit and/or counseling patient: Coding Level of Care Code 14839 SUB INP/OBS CARE 2/35MIN Diagnoses Sepsis A41.9 Diarrhea R19.7 Abnormal CXR R93.89 Sacral wound S31.000A Metabolic acidosis with normal anion gap and bicarbonate losses E87.20 Hypertension I10 Anemia requiring transfusions D64.9 Elevated alkaline phosphatase level R74.8 Hx pulmonary embolism Z86.711 Urinary tract infection N39.0 CKD (chronic kidney disease) stage 4, GFR 15-29 ml/min N18.4
[2024-10-28 05:08] LABS: Hematocrit (blood only) 22.6 % (37.0-47.0); Hemoglobin 7.2 g/dl (12.0-16.0); Mean Corpuscular Hemoglobin 28.5 pg (25.0-34.0); Mean Corpuscular Hgb Conc 31.9 g/dL (32.0-36.0); Mean Corpuscular Volume 89.3 fL (80.0-100.0); Mean Platelet Volume 8.2 fL (9.4-12.4); Platelet Count 239 K/uL (130-400); RDW Coefficient of Variation 14.7 % (11.5-14.5); RDW Standard Deviation 47.2 fL (36.4-46.3); Red Blood Count 2.53 M/uL (4.20-5.40); White Blood Count 9.64 K/ul (4.8-10.8)
[2024-10-28 05:25] LABS: BUN Creatinine Ratio 29.5 (10-20); Calcium 7.4 mg/dl (8.6-10.3); Creatinine Clr Calc Pharmacy 31.7 ml/min; Potassium 3.3 mmol/L (3.5-5.1)
--- NOTE | 2024-10-28 08:50 | XRay Report ---
KUB CLINICAL HISTORY: Constipation. COMPARISON STUDY: CT of the abdomen and pelvis October 25, 2024. FINDINGS: The bowel gas pattern is normal. Large amount of stool within the rectum is similar to prio r CT of October 25, 2024. The gallbladder is surgically absent. There is no evidence for free air on supine exam. IMPRESSION: 1. Large amount of stool within the rectum, similar to prior CT. 2. No evidence for a bowel obstruction. ACT 112: Negative or not required by law. Electronically signed by: Regulo Justice M.D. 10/28/2024 8:49 AM
--- NOTE | 2024-10-28 09:08 | Hospitalist Progress Note ---
Date of Service October 28, 2024 Assessment & Plan (1) Sepsis: Plan: Follow up blood and urine cultures( initial culture is polymicrobial) Suspected urinary source for initial workup vs decubitus ulcer which was present on admission. CT A/P wo IV contrast to assess for alternative source vs. stone vs. pancolitis (suprapubic pain on exam) IV cefepime ( small change on CXR not felt to be clinical pneumonia) Placed palliative care consult as patient is complaining of significant pain and feels quality of life has deteriorated. wound care consulted. (2) Diarrhea: Plan: Watery concern for overflow diarrhea. Patient refused rectal examination Stool and c. diff PCR negative CT A/P negative except for stool in rectum ordered miralax (3) Sacral wound: Plan: Consult wound care Unstageable at this time due to eschar within (4) Metabolic acidosis with normal anion gap and bicarbonate losses: Plan: Mostly NAGMA (mild anion gap) ?due to diarrhea, ?just from CKD and needs sodium bicarb Discontinued bicarbonate and serum bicarbonate has risen (5) Elevated alkaline phosphatase level: Plan: Concerning for bone involvement ?underlying osteomyelitis, CT A/P completed: negative Repeat with AM labs (6) Advanced care planning/counseling discussion: Plan: Back in the room after initial visit discussed with the patient the bedside for an additional 25 minutes. We discussed her goals of care and the fact that she would likely will transition to hospice care. She is agreeable for me to place consults to both pastoral care palliative care. Plan VTE Prophyalxis - heparin 5000 units SQ BID (unclear if she should still be taking Eliquis as last picked up in January) CKD 4 stable Chronic anemia stable history of PE not on eliquis history of hypertension is stable Admission and Anticipated Discharge Date Admission Date: October 25, 2024 Subjective Patient was very clear that she is disappointed in how her life is gone over the last 6 months with her persistent decubitus ulcer and pain. She has lost her ability to stand and walk and is interested in discussing hospice care understanding that she would likely within the next 6 months She continues to have loose bowel movements we discussed the fact that she may have a stool ball or obstipation and she is having overflow diarrhea but she declined my request for rectal examination is considering whether she uses suppository at this time. She did meet both with pastoral care palliative care to discuss transition to hospice care in the short-term future but wants to talk to her family first Physical Exam Physical Exam: Very pleasant female. She is in distress when she moves about. Inspection of her backside shows a unstageable ulcer on her sacrum with a dark eschar at the base cannot tell how deep it is. There is areas of seeping and weeping surrounding her buttocks area. Her abdomen is with normal bowel sounds she is tender in epigastrium there is no mass or stool ball palpable anteriorly. Results & Data Results & Data Vital Signs (Past 12 Hours) Vital Signs Temp Pulse Pulse Resp BP Pulse Ox O2 Del Method 10/28/24 07:40 Room Air 10/28/24 07:26 97.3 F L 64 17 118/60 100 Room Air 10/28/24 02:45 97.7 F 60 16 131/66 98 Room Air 10/28/24 00:12 97.5 F L 56 L 16 107/60 99 Room Air 10/27/24 22:59 62 10/27/24 22:59 Room Air Laboratory Results Reviewed CBC Reviewed chemistry augmented potassium PG Care Time/CCT Total # of Minutes Spent Total Time Spent with Patient: Total time spent is greater than 50% in coordination of care (as documented) at patient's floor/unit and/or counseling patient: Coding Level of Care Code 88221 SUB INP/OBS CARE 3/50MIN Diagnoses Sepsis A41.9 Diarrhea R19.7 Sacral wound S31.000A Metabolic acidosis with normal anion gap and bicarbonate losses E87.20 Elevated alkaline phosphatase level R74.8 Advanced care planning/counseling discussion Z71.89 Comment Additional 25 minutes were spent in advance care planning
--- NOTE | 2024-10-28 15:25 | Palliative Care Consultation ---
Date of Consultation October 28, 2024 Assessment & Plan (1) Persistent wound pain: I have changed morphine to a scheduled 1 mg IV every 6 hours [id number] and then modified her as needed 2 mg dose to every 4 hours as needed for breakthrough pain. Please hold these medicines for somnolence or respiratory rate less than 14/min and please document the respiratory rate with each dose administration. (2) Sacral pain: (3) Generalized weakness: (4) Advanced care planning/counseling discussion: Met with patient [id number] at the bedside for 40-minute discussion about advance care planning. She tells me that her pain has been persistent and unrelenting for over 2 years. Pain medication has not particularly helped until this admission when she has been given some IV morphine with relief. She feels that this should be given on a more regular basis as it does not take away her pain in a consistent manner. We discussed the option of scheduling pain medicine to see how she tolerates that. We also discussed a transition to a plan of care that is focused more on comfort and she shared that her goal is ultimately to be able to return home and notes that her son will be able to help care for her. We briefly discussed the option of adding hospice to her care at home which would allow her to have an unlimited support from visiting home nurses, home health aides, social work, director of intelligence support and gentle at home PT should she desire. She is willing to consider these things but states that she is asked her son to come in tomorrow to speak with her because she is "I have some things I need to tell them about how I want things done and I also need to explain to him how things need to be done for the house and how he has to keep it up once I am gone. I have not had this conversation with him because I know it is going to be hard for him about it is time he hears this for me and he needs to be sure he is paying attention. I am interested in focusing more on my comfort but only after I have had a chance to talk to him." We agreed to focus on her pain and symptom management for the next few days while she settles things with her son. I offered to help facilitate any discussion she may need with her son about the goals of care and planning from a discharge perspective but for now she politely declined and states she wants to first speak to her son" see where he is at mentally with everything I am about to tell them" and go from there. (5) Nonhealing nonsurgical wound: (6) Ambulatory dysfunction: (7) Palliative care by specialist: Introduced Palliative Medicine and explained our role in patient's care. Patient and/or family were receptive to palliative services for goals of care discussions. Reviewed we are different from hospice, a home health nurse visiting service. (8) Encounter for hospice care discussion: I provided education about the hospice benefit: an interdisciplinary program offered by nurses, nurses aides, social workers, chaplains and a medical reception specialist for patients with a terminal condition and a life expectancy of less than 6 months. This is covered by Medicare at 100%/no out of pocket expense to patient and all meds/supplies needed by patient for the reason they are on hospice are paid for/covered by hospice. The goal is assure quality of life of the patient in their home setting (home, detention, inpatient hospice setting) by providing symptoms management, psychosocial and spiritual support. However, they cannot offer 24 hours care and if the family is unable to provide that care, they will have to consider personal care with out of pocket cost vs. detention placement. We discussed the goals of hospice as a patient service and the goals of care; we discussed EOL trajectories and transitions kayla the emotional impact of realizing mortality as a concrete reality from prior abstract considerations. Pt was reassured that no matter where they are along this trajectory, they are not alone - their medical team will remain by their side through their journey. Discussed the pros/cons of accepting help when especially weakened and distressed by pain-which would also help provide relief/decrease caregiver burden/strain. Plan As above. Thank you for allowing us to participate in the ongoing care of this patient. Please page with any additional concerns. Krystal Medina DNP Director, Palliative Medicine History of Present Illness Reason for Consultation: "Goals, desiring hospice" Attending Physician: Troy Hall MD History of Present Illness 74yo female with admission for sepsis d/t urine vs wound as source Remains on IV cefepime. Occasional diarrhea, C. difficile PCR negative. CAT scan of abdomen and pelvis without IV contrast negative except for stool in rectum, questionable stone versus pancolitis. Sacral wound remains problematic. She is being followed by wound care. Has difficulty tolerating positional changes, prefers to lie on her back, also found to have metabolic acidosis with a normal anion gap. Mostly NAGMA likely due to diarrhea. 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 Remains on VTE prophylaxis. At the time of my visit she is lying in bed semireclined. On her backside. Refuses to change positions. Tells me she is tired living with the current quality of life and feels that the pain has become the sole focus of her days. She does not feel that her wound will heal and reports that she has heard this from multiple providers as well. She is not able to tolerate offloading. She currently lives at home and her 50-year-old son lives with her. She states he does not work and is available to assist her when needed. She wants to return home. She also states that she wants to have some time to speak with her son about some private issues before making any further decisions. Allergies Allergy/AdvReac Type Severity Reaction Status Date / Time No Known Allergies Allergy Verified 09/17/24 11:54 Home Medications Medication Instructions Recorded Confirmed Type allopurinol 100 mg tablet 100 mg PO QAM 10/23/19 10/25/24 History metoprolol tartrate 50 mg tablet 50 mg PO BID 10/23/19 10/25/24 History albuterol sulfate 90 mcg/actuation 2 puff inhalation DIRECTED PRN 01/25/24 10/25/24 History aerosol inhaler Shortness Of Breath Or Wheezing ondansetron HCl 4 mg tablet 4 mg PO Q8H PRN NAUSEA/VOMITING 01/25/24 10/25/24 History silver sulfadiazine 1 % topical 1 applic topical DAILY PRN Skin 01/25/24 10/25/24 History cream Irritation acetaminophen 650 mg 650 mg PO DAILY PRN Pain 08/26/24 10/25/24 History tablet,extended release apixaban 2.5 mg tablet (Eliquis) 0 mg PO BID 08/26/24 10/25/24 History Patient History Medical History (Updated 10/28/24 @ 15:21 by Sarah Medina DNP) CKD (chronic kidney disease) stage 4, GFR 15-29 ml/min Generalized weakness COPD (chronic obstructive pulmonary disease) has occasional cough Acute hypoxic respiratory failure 01/2024 "due to huge blood clot in lungs" Wheelchair dependence Ambulatory dysfunction Aspiration into airway 01/2024, admitted to hospital w/UTI, "aspirated and due to this and was resuscitated even though she had a DNR" Factor 5 Leiden mutation, heterozygous Sacral wound "still has, has seen [address]'s" Asthma inh prn>"rare use" Hypertension Gout Anemia requiring transfusions 01/2024, no current issues Chronic anticoagulation Hx pulmonary embolism 2010 or 2011, 2/2 Factor V Surgical History Hx of left cataract extraction Hx of cholecystectomy Hx of eye surgery in her 30's, for "lazy eye" Family History Other Family history non-contributory Social History Smoking Status: Never smoker Second Hand Exposure: No; Do You Dip or Chew Tobacco: No; Tobacco Cessation Education Requested by Patient: No Hx Alcohol Use: No Hx Substance Use: No Preferred Language: Finnish Communication Ability: Effective Control Manager Required: No Beliefs That Will Affect Care: Spiritual marital status: / Current Living Situation: Family Current Living Situation Comment: son and granddaughters live with her current occupational status: employed Other Information That Helps Us Care for You: No Feels Safe at Home: Yes Safety Concerns: Feels Safe At This Time Assistive Devices: Wheelchair Review of Systems Review of Systems: All systems reviewed & are unremarkable except as noted in Subjective Physical Exam Physical Exam: Frail, elderly female, semireclined in bed. Bitemporal wasting noted. PERRLA, EOMI's. Pharynx pink, slightly dry, no obvious thrush. Dentition fair. Normal effort. Lungs overall diminished but clear bilaterally. S1-S2, RRR, no murmur appreciated. Abdomen soft with some mild tenderness noted to suprapubic, no particular guarding, no rigidity noted. Generalized weakness throughout. Strength is equal bilaterally but diminished. She is awake alert and oriented x 3. Skin is pale, cool to touch. Wound was not assessed, she is lying in a reclined position unable to tolerate positional changes. Results & Data Vital Signs (Past 12 Hours) Vital Signs Temp Pulse Pulse Resp BP Pulse Ox O2 Del Method 10/28/24 15:00 67 10/28/24 11:31 36.6 C 67 18 136/57 L 97 Room Air 10/28/24 09:00 61 10/28/24 07:40 Room Air 10/28/24 07:26 36.3 C L 64 17 118/60 100 Room Air Laboratory Results Data reviewed Diagnostic Findings Data reviewed PG Care Time/CCT Total # of Minutes Spent Total Time Spent with Patient: I spent 105 minutes overall addressing this case: 15 min in medical data review/discussion with referring provider(s) and/or preparation for the visit 15 min in direct interaction with the patient/exam 45 min in Advance Care Planning/Goals of Care discussions as detailed above in note (must be >16min) 15 min in subsequent review and synthesis of assessment and plan 15 min communicating with other providers regarding the patient's case: Primary team, nursing Advanced Care Planning 29062 Advanced Care Planning 30 Min 35832 Advanced Care Planning Additional 30 [place] [address] IN/OBS CONSULT LVL 4,60M (25 - SIGNIFICANT, SEPARATELY IDENTIFIABLE ) Patient Type New Medical Decision Making High Complexity Diagnoses Persistent wound pain R52 Sacral pain M53.3 Generalized weakness R53.1 Advanced care planning/counseling discussion Z71.89 Nonhealing nonsurgical wound T14.8XXA Ambulatory dysfunction R26.2 Palliative care by specialist Z51.5 Encounter for hospice care discussion Z71.89 Additional Codes Advanced Care Planning - 38740 Advanced Care Planning 30 Min: 06338 Advanced Care Planning 30 Min ([id number]) Advanced Care Planning - 41413 Advanced Care Planning Additional 30 Min: 14833 Advanced Care Planning Additional 30 Min ([id number])
[2024-10-28] MEDS: MoRPHine SULFATE 2 MG/ML CARP IV SCH (16:03)
[2024-10-28] MEDS ORDERED: traMADol HCL 50 MG TABLET PO PRN (16:32)
[2024-10-28] MEDS: POTASSIUM CHLORIDE CRTAB 20 MEQ TABCR PO STA (18:24)
[2024-10-29 06:14] LABS: Hemoglobin 7.6 g/dl (12.0-16.0); Mean Corpuscular Hemoglobin 28.1 pg (25.0-34.0); Mean Corpuscular Hgb Conc 30.4 g/dL (32.0-36.0); Mean Corpuscular Volume 92.6 fL (80.0-100.0); Mean Platelet Volume 8.3 fL (9.4-12.4); Platelet Count 226 K/uL (130-400); RDW Coefficient of Variation 14.9 % (11.5-14.5); White Blood Count 10.77 K/ul (4.8-10.8)
[2024-10-29 06:32] LABS: Calcium 7.2 mg/dl (8.6-10.3); Creatinine Clr Calc Pharmacy 30.7 ml/min; Potassium 3.4 mmol/L (3.5-5.1)
[2024-10-29] MEDS: DOCUSATE SODIUM/SENNA 50/8.6MG TAB PO SCH (08:46)
[2024-10-29] MEDS: POTASSIUM CHLORIDE CRTAB 20 MEQ TABCR PO STA (08:47)
[2024-10-29] MEDS: MAGNESIUM SULFATE / D5W 1 GM/100 ML BAG IV ONE (08:48)
[2024-10-29] MEDS: MoRPHine SULFATE 2 MG/ML CARP IV PRN (12:59)
[2024-10-29] MEDS: cefTRIAXone SODIUM 1,000 MG/50 ML BAG IV SCH (13:00)
--- NOTE | 2024-10-29 16:20 | Hospitalist Progress Note ---
Date of Service October 29, 2024 Assessment & Plan (1) Sepsis: Plan: Follow up blood and urine cultures( initial culture is polymicrobial) Suspected urinary source for initial workup vs decubitus ulcer which was present on admission. complete 5 days antibiotic currently downgrade to ceftriaxone CT A/P wo IV contrast no acute findings in the abdomen ( small change on CXR not felt to be clinical pneumonia) Placed palliative care consult as patient is complaining of significant pain and feels quality of life has deteriorated. wound care consulted. spoke to family about home with hospice (2) Diarrhea: Plan: consider overflow diarrhea from obstipation, does not want a rectal or enema (3) Sacral pain: Plan: unstageable sacral decubitus poa (4) Metabolic acidosis with normal anion gap and bicarbonate losses: Plan: remains with elevated bicarb, maybe from diarrhea Plan hopeful to make a decision on home hospice Admission and Anticipated Discharge Date Admission Date: October 25, 2024 Subjective pt has pain after wound care, she is more convinced that she is going to Hospice are but wants to speak to family and allowed me to call Naye, her grand daughter Naye had all questions answered and will be speaking to [employer] Physical Exam Physical Exam: PT is awake and alert, has pain with position cardiac is regular lungs are diminished the bases Results & Data Results & Data Vital Signs (Past 12 Hours) Vital Signs Temp Pulse Pulse Resp BP BP Pulse Ox 10/29/24 16:09 77 10/29/24 11:32 97.9 F 64 18 120/59 L 98 10/29/24 10:33 56 L 10/29/24 07:54 10/29/24 07:27 97.5 F L 64 18 136/60 99 O2 Del Method 10/29/24 16:09 10/29/24 11:32 Room Air 10/29/24 10:33 10/29/24 07:54 Room Air 10/29/24 07:27 Room Air Laboratory Results review cbc review chemistry-> augment K+ PG Care Time/CCT Total # of Minutes Spent Total Time Spent with Patient: Total time spent is greater than 50% in coordination of care (as documented) at patient's floor/unit and/or counseling patient: Coding Level of Care Code 48276 SUB INP/OBS CARE 3/50MIN Diagnoses Sepsis A41.9 Diarrhea R19.7 Sacral pain M53.3 Metabolic acidosis with normal anion gap and bicarbonate losses E87.20
--- NOTE | 2024-10-29 17:41 | Palliative Care Progress Note ---
Date of Service October 29, 2024 Assessment & Plan (1) Persistent wound pain: Plan: Scheduled MS is working If home with hospice is planned, suggest TDF 12mcg q72h and MSIR 10mg PO q2h prn pain or dyspnea, prior to wound care, personal care or positional changes (2) Sacral pain: (3) Nonhealing nonsurgical wound: (4) Generalized weakness: (5) Encounter for hospice care discussion: (6) Palliative care by specialist: Plan As above Thank you for allowing us to participate in the ongoing care of this patient. Please page with any additional concerns. Krystal Medina DNP Director, Palliative Medicine Admission and Anticipated Discharge Date Admission Date: October 25, 2024 Subjective pain improved with scheduled ms dosing not feeling sedated leaning towards hospice but wants to talk with her son no acute complaints Review of Systems Review of Systems: All systems reviewed & are unremarkable except as noted in Subjective Physical Exam Physical Exam: Frail, elderly female, semireclined in bed. Bitemporal wasting noted. PERRLA, EOMI's. Pharynx pink, slightly dry, no obvious thrush. Dentition fair. Normal effort. Lungs overall diminished but clear bilaterally. S1-S2, RRR, no murmur appreciated. Abdomen soft with some mild tenderness noted to suprapubic, no particular guarding, no rigidity noted. Generalized weakness throughout. Strength is equal bilaterally but diminished. She is awake alert and oriented x 3. Skin is pale, cool to touch. Wound was not assessed, she is lying in a rec lined position unable to tolerate positional changes. Results & Data Vital Signs (Past 12 Hours) Vital Signs Temp Pulse Pulse Resp BP BP Pulse Ox 10/29/24 16:18 36.7 C 65 18 167/67 H 97 10/29/24 16:09 77 10/29/24 11:32 36.6 C 64 18 120/59 L 98 10/29/24 10:33 56 L 10/29/24 07:54 10/29/24 07:27 36.4 C L 64 18 136/60 99 O2 Del Method 10/29/24 16:18 Room Air 10/29/24 16:09 10/29/24 11:32 Room Air 10/29/24 10:33 10/29/24 07:54 Room Air 10/29/24 07:27 Room Air Laboratory Results 10/29/24 10/28/24 10/26/24 Range/Units 05:30 04:42 10:30 WBC 10.77 9.64 (4.8-10.8) K/ul RBC 2.70 L 2.53 L (4.20-5.40) M/uL Hgb 7.6 L 7.2 L (12.0-16.0) g/dl Hct 25.0 L 22.6 L (37.0-47.0) % MCV 92.6 89.3 (80.0-100.0) fL MCH 28.1 28.5 (25.0-34.0) pg MCHC 30.4 L 31.9 L (32.0-36.0) g/dL RDW Std Deviation 50.0 H 47.2 H (36.4-46.3) fL RDW Coeff of Mica 14.9 H 14.7 H (11.5-14.5) % Plt Count 226 239 (130-400) K/uL MPV 8.3 L 8.2 L (9.4-12.4) fL Immature Gran % (Auto) % Neut % (Auto) % Lymph % (Auto) % [place] % (Auto) % Eos % (Auto) % Baso % (Auto) % Reticulocyte % (Auto) (0.50-2.00) % Neut # (Auto) (1.40-6.50) K/uL Lymph # (Auto) (1.20-3.40) K/uL [place] # (Auto) (0.11-0.59) K/uL Eos # (Auto) (0.00-0.50) K/uL Baso # (Auto) (0.00-0.20) K/uL Reticulocyte # (0.020-0.100) 10^6/uL Immature Gran # (Auto) (0.01-0.20) K/uL Polychromasia VBG pH (7.36-7.41) VBG pCO2 (38-50) mmHg VBG pO2 mmHg VBG HCO3 mmol/L VBG O2 Saturation % VBG Base Excess mEq/L Sodium 136 135 L (136-145) mmol/L Potassium 3.4 L 3.3 L (3.5-5.1) mmol/L Chloride 92 L 93 L (98-107) mmol/L Carbon Dioxide 38 H 35 H (21-32) mmol/L Anion Gap 6 7 (3-11) BUN 29 H 36 H D (6-23) mg/dl Creatinine 1.26 H 1.22 H D (0.6-1.2) mg/dl Est Cr Clr Drug Dosing 30.7 31.7 ml/min eGFR 44.25 45.99 BUN/Creatinine Ratio 23.0 H 29.5 H (10-20) Glucose 109 H 134 H (70-99(Fasting)) mg/dl Lactate (0.4-2.0) mmol/L Calcium 7.2 L 7.4 L (8.6-10.3) mg/dl Phosphorus (2.5-4.9) mg/dl Magnesium (1.7-2.4) mg/dl Iron (35-150) mcg/dl TIBC (250-450) mcg/dl Unsaturated IBC (155-355) mcg/dl Transferrin % Sat (15-50) % Ferritin (8-388) ng/ml Total Bilirubin (0.2-1.0) mg/dl AST (13-39) U/L ALT (7-52) U/L Alkaline Phosphatase (34-104) U/L Lactate Dehydrogenase (86-244) U/L Troponin I High Sens (0-14) pg/ml Total Protein (6.0-8.3) gm/dl Albumin (3.4-5.0) gm/dl Globulin (2.5-4.0) gm/dl Albumin/Globulin Ratio (0.9-2) Vitamin B12 (180-914) pg/ml Folate (>5.38) ng/ml Procalcitonin (0-0.5) ng/ml TSH (0.300-4.500) uIu/ml Urine Color Urine Appearance (Clear) Urine pH (4.5-7.5) Ur Specific [place] (1.000-1.030) Urine Protein (Negative) Urine Glucose (UA) (Negative) Urine Ketones (Negative) Urine Blood (Negative) Urine Nitrite (Negative) Urine Bilirubin (Negative) Urine Urobilinogen (Negative) Ur Leukocyte Esterase (Negative) Urine WBC (Auto) (0-5) /hpf Urine RBC (Auto) (0-2) /hpf U Hyaline Cast (Auto) (0-2) /lpf U Epithel Cells (Auto) (0-2) /hpf Urine Bacteria (Auto) (None Seen) Stl C. cayetanensis PCR Not Detected (NotDetected) Stool Rotavirus A PCR Not Detected (NotDetected) Stl Adenov F 40/41 PCR Not Detected (NotDetected) Stool Astrovirus (PCR) Not Detected (NotDetected) Stool Campylobacter PCR Not Detected (NotDetected) Stl C. diff Tox B Gene Negative Cdiff Gene (Neg) Stool Cryptosporidium PCR Not Detected (NotDetected) Stl E.coli Shiga Tox PCR Not Detected (NotDetected) Stl Enterotoxigenic E PCR Not Detected (NotDetected) Stool EPEC (PCR) Not Detected (NotDetected) Stool EAEC (PCR) Not Detected (NotDetected) Stl E. histolytica PCR Not Detected (NotDetected) Stool Giardia Lamblia PCR Not Detected (NotDetected) Stool Salmonella PCR Not Detected (NotDetected) Stool Sapovirus (PCR) Not Detected (NotDetected) Stl P. shigelloides PCR Not Detected (NotDetected) Stl Shigella/EIEC PCR Not Detected (NotDetected) St Y.enterocolitica PCR Not Detected (NotDetected) Stool Vibrio (PCR) Not Detected (NotDetected) Stl Vibrio cholerae PCR Not Detected (NotDetected) Stl Norovirus GI/GII PCR Not Detected (NotDetected) 10/26/24 10/26/24 10/26/24 Range/Units 06:56 06:52 06:52 WBC (4.8-10.8) K/ul RBC (4.20-5.40) M/uL Hgb (12.0-16.0) g/dl Hct (37.0-47.0) % MCV (80.0-100.0) fL MCH (25.0-34.0) pg MCHC (32.0-36.0) g/dL RDW Std Deviation (36.4-46.3) fL RDW Coeff of Mica (11.5-14.5) % Plt Count (130-400) K/uL MPV (9.4-12.4) fL Immature Gran % (Auto) % Neut % (Auto) % Lymph % (Auto) % [place] % (Auto) % Eos % (Auto) % Baso % (Auto) % Reticulocyte % (Auto) (0.50-2.00) % Neut # (Auto) (1.40-6.50) K/uL Lymph # (Auto) (1.20-3.40) K/uL [place] # (Auto) (0.11-0.59) K/uL Eos # (Auto) (0.00-0.50) K/uL Baso # (Auto) (0.00-0.20) K/uL Reticulocyte # (0.020-0.100) 10^6/uL Immature Gran # (Auto) (0.01-0.20) K/uL Polychromasia VBG pH 7.30 L (7.36-7.41) VBG pCO2 34 L (38-50) mmHg VBG pO2 21 mmHg VBG HCO3 17 mmol/L VBG O2 Saturation < 60.0 % VBG Base Excess -8.8 mEq/L Sodium (136-145) mmol/L Potassium (3.5-5.1) mmol/L Chloride (98-107) mmol/L Carbon Dioxide (21-32) mmol/L Anion Gap (3-11) BUN (6-23) mg/dl Creatinine (0.6-1.2) mg/dl Est Cr Clr Drug Dosing ml/min eGFR BUN/Creatinine Ratio (10-20) Glucose (70-99(Fasting)) mg/dl Lactate (0.4-2.0) mmol/L Calcium (8.6-10.3) mg/dl Phosphorus (2.5-4.9) mg/dl Magnesium Cancelled (1.7-2.4) mg/dl Iron 18 L (35-150) mcg/dl TIBC 97 L (250-450) mcg/dl Unsaturated IBC 79 L (155-355) mcg/dl Transferrin % Sat 19 (15-50) % Ferritin 334.1 (8-388) ng/ml Total Bilirubin 0.4 (0.2-1.0) mg/dl AST 10 L (13-39) U/L ALT 5 L (7-52) U/L Alkaline Phosphatase 350 H (34-104) U/L Lactate Dehydrogenase Cancelled 86 (86-244) U/L Troponin I High Sens (0-14) pg/ml Total Protein 5.8 L (6.0-8.3) gm/dl Albumin 1.9 L (3.4-5.0) gm/dl Globulin 3.9 (2.5-4.0) gm/dl Albumin/Globulin Ratio 0.5 L (0.9-2) Vitamin B12 793 (180-914) pg/ml Folate 6.93 (>5.38) ng/ml Procalcitonin (0-0.5) ng/ml TSH (0.300-4.500) uIu/ml Urine Color Urine Appearance (Clear) Urine pH (4.5-7.5) Ur Specific [place] (1.000-1.030) Urine Protein (Negative) Urine Glucose (UA) (Negative) Urine Ketones (Negative) Urine Blood (Negative) Urine Nitrite (Negative) Urine Bilirubin (Negative) Urine Urobilinogen (Negative) Ur Leukocyte Esterase (Negative) Urine WBC (Auto) (0-5) /hpf Urine RBC (Auto) (0-2) /hpf U Hyaline Cast (Auto) (0-2) /lpf U Epithel Cells (Auto) (0-2) /hpf Urine Bacteria (Auto) (None Seen) Stl C. cayetanensis PCR (NotDetected) Stool Rotavirus A PCR (NotDetected) Stl Adenov F 40/41 PCR (NotDetected) Stool Astrovirus (PCR) (NotDetected) Stool Campylobacter PCR (NotDetected) Stl C. diff Tox B Gene (Neg) Stool Cryptosporidium PCR (NotDetected) Stl E.coli Shiga Tox PCR (NotDetected) Stl Enterotoxigenic E PCR (NotDetected) Stool EPEC (PCR) (NotDetected) Stool EAEC (PCR) (NotDetected) Stl E. histolytica PCR (NotDetected) Stool Giardia Lamblia PCR (NotDetected) Stool Salmonella PCR (NotDetected) Stool Sapovirus (PCR) (NotDetected) Stl P. shigelloides PCR (NotDetected) Stl Shigella/EIEC PCR (NotDetected) St Y.enterocolitica PCR (NotDetected) Stool Vibrio (PCR) (NotDetected) Stl Vibrio cholerae PCR (NotDetected) Stl Norovirus GI/GII PCR (NotDetected) 10/26/24 10/26/24 10/26/24 Range/Units 06:52 06:52 06:52 WBC (4.8-10.8) K/ul RBC (4.20-5.40) M/uL Hgb (12.0-16.0) g/dl Hct (37.0-47.0) % MCV (80.0-100.0) fL MCH (25.0-34.0) pg MCHC (32.0-36.0) g/dL RDW Std Deviation (36.4-46.3) fL RDW Coeff of Mica (11.5-14.5) % Plt Count (130-400) K/uL MPV (9.4-12.4) fL Immature Gran % (Auto) % Neut % (Auto) % Lymph % (Auto) % [place] % (Auto) % Eos % (Auto) % Baso % (Auto) % Reticulocyte % (Auto) Cancelled (0.50-2.00) % Neut # (Auto) 9.52 H (1.40-6.50) K/uL Lymph # (Auto) 0.59 L (1.20-3.40) K/uL [place] # (Auto) 0.53 (0.11-0.59) K/uL Eos # (Auto) 0.07 (0.00-0.50) K/uL Baso # (Auto) 0.03 (0.00-0.20) K/uL Reticulocyte # Cancelled 0.040 (0.020-0.100) 10^6/uL Immature Gran # (Auto) 0.05 (0.01-0.20) K/uL Polychromasia 1+ VBG pH (7.36-7.41) VBG pCO2 (38-50) mmHg VBG pO2 mmHg VBG HCO3 mmol/L VBG O2 Saturation % VBG Base Excess mEq/L Sodium 140 (136-145) mmol/L Potassium 4.1 (3.5-5.1) mmol/L Chloride 113 H (98-107) mmol/L Carbon Dioxide 17 L (21-32) mmol/L Anion Gap 10 (3-11) BUN 57 H (6-23) mg/dl Creatinine 1.75 H D (0.6-1.2) mg/dl Est Cr Clr Drug Dosing 22.6 ml/min eGFR 29.83 BUN/Creatinine Ratio 32.6 H (10-20) Glucose 117 H (70-99(Fasting)) mg/dl Lactate (0.4-2.0) mmol/L Calcium 7.8 L (8.6-10.3) mg/dl Phosphorus Cancelled 4.2 (2.5-4.9) mg/dl Magnesium 1.4 L (1.7-2.4) mg/dl Iron (35-150) mcg/dl TIBC (250-450) mcg/dl Unsaturated IBC (155-355) mcg/dl Transferrin % Sat (15-50) % Ferritin (8-388) ng/ml Total Bilirubin (0.2-1.0) mg/dl AST (13-39) U/L ALT (7-52) U/L Alkaline Phosphatase (34-104) U/L Lactate Dehydrogenase (86-244) U/L Troponin I High Sens (0-14) pg/ml Total Protein (6.0-8.3) gm/dl Albumin (3.4-5.0) gm/dl Globulin (2.5-4.0) gm/dl Albumin/Globulin Ratio (0.9-2) Vitamin B12 (180-914) pg/ml Folate (>5.38) ng/ml Procalcitonin (0-0.5) ng/ml TSH (0.300-4.500) uIu/ml Urine Color Urine Appearance (Clear) Urine pH (4.5-7.5) Ur Specific [place] (1.000-1.030) Urine Protein (Negative) Urine Glucose (UA) (Negative) Urine Ketones (Negative) Urine Blood (Negative) Urine Nitrite (Negative) Urine Bilirubin (Negative) Urine Urobilinogen (Negative) Ur Leukocyte Esterase (Negative) Urine WBC (Auto) (0-5) /hpf Urine RBC (Auto) (0-2) /hpf U Hyaline Cast (Auto) (0-2) /lpf U Epithel Cells (Auto) (0-2) /hpf Urine Bacteria (Auto) (None Seen) Stl C. cayetanensis PCR (NotDetected) Stool Rotavirus A PCR (NotDetected) Stl Adenov F 40/41 PCR (NotDetected) Stool Astrovirus (PCR) (NotDetected) Stool Campylobacter PCR (NotDetected) Stl C. diff Tox B Gene (Neg) Stool Cryptosporidium PCR (NotDetected) Stl E.coli Shiga Tox PCR (NotDetected) Stl Enterotoxigenic E PCR (NotDetected) Stool EPEC (PCR) (NotDetected) Stool EAEC (PCR) (NotDetected) Stl E. histolytica PCR (NotDetected) Stool Giardia Lamblia PCR (NotDetected) Stool Salmonella PCR (NotDetected) Stool Sapovirus (PCR) (NotDetected) Stl P. shigelloides PCR (NotDetected) Stl Shigella/EIEC PCR (NotDetected) St Y.enterocolitica PCR (NotDetected) Stool Vibrio (PCR) (NotDetected) Stl Vibrio cholerae PCR (NotDetected) Stl Norovirus GI/GII PCR (NotDetected) 10/26/24 10/25/24 10/25/24 Range/Units 06:52 19:16 18:08 WBC 10.79 (4.8-10.8) K/ul RBC 2.49 L (4.20-5.40) M/uL Hgb 7.1 L (12.0-16.0) g/dl Hct 22.4 L (37.0-47.0) % MCV 90.0 (80.0-100.0) fL MCH 28.5 (25.0-34.0) pg MCHC 31.7 L (32.0-36.0) g/dL RDW Std Deviation 48.2 H (36.4-46.3) fL RDW Coeff of Mica 14.7 H (11.5-14.5) % Plt Count 320 (130-400) K/uL MPV 8.1 L (9.4-12.4) fL Immature Gran % (Auto) 0.5 % Neut % (Auto) 88.2 % Lymph % (Auto) 5.5 % [place] % (Auto) 4.9 % Eos % (Auto) 0.6 % Baso % (Auto) 0.3 % Reticulocyte % (Auto) 1.50 (0.50-2.00) % Neut # (Auto) (1.40-6.50) K/uL Lymph # (Auto) (1.20-3.40) K/uL [place] # (Auto) (0.11-0.59) K/uL Eos # (Auto) (0.00-0.50) K/uL Baso # (Auto) (0.00-0.20) K/uL Reticulocyte # (0.020-0.100) 10^6/uL Immature Gran # (Auto) (0.01-0.20) K/uL Polychromasia VBG pH 7.21 L (7.36-7.41) VBG pCO2 30 L (38-50) mmHg VBG pO2 38 mmHg VBG HCO3 12 mmol/L VBG O2 Saturation 62.8 % VBG Base Excess -14.5 mEq/L Sodium (136-145) mmol/L Potassium (3.5-5.1) mmol/L Chloride (98-107) mmol/L Carbon Dioxide (21-32) mmol/L Anion Gap (3-11) BUN (6-23) mg/dl Creatinine (0.6-1.2) mg/dl Est Cr Clr Drug Dosing ml/min eGFR BUN/Creatinine Ratio (10-20) Glucose (70-99(Fasting)) mg/dl Lactate (0.4-2.0) mmol/L Calcium (8.6-10.3) mg/dl Phosphorus (2.5-4.9) mg/dl Magnesium (1.7-2.4) mg/dl Iron (35-150) mcg/dl TIBC (250-450) mcg/dl Unsaturated IBC (155-355) mcg/dl Transferrin % Sat (15-50) % Ferritin (8-388) ng/ml Total Bilirubin (0.2-1.0) mg/dl AST (13-39) U/L ALT (7-52) U/L Alkaline Phosphatase (34-104) U/L Lactate Dehydrogenase (86-244) U/L Troponin I High Sens (0-14) pg/ml Total Protein (6.0-8.3) gm/dl Albumin (3.4-5.0) gm/dl Globulin (2.5-4.0) gm/dl Albumin/Globulin Ratio (0.9-2) Vitamin B12 (180-914) pg/ml Folate (>5.38) ng/ml Procalcitonin (0-0.5) ng/ml TSH (0.300-4.500) uIu/ml Urine Color Yellow Urine Appearance Turbid A (Clear) Urine pH 6.0 (4.5-7.5) Ur Specific [place] 1.016 (1.000-1.030) Urine Protein 3+ H (Negative) Urine Glucose (UA) Negative (Negative) Urine Ketones Trace H (Negative) Urine Blood 3+ H (Negative) Urine Nitrite Positive A (Negative) Urine Bilirubin Negative (Negative) Urine Urobilinogen Negative (Negative) Ur Leukocyte Esterase 3+ H (Negative) Urine WBC (Auto) >50 H (0-5) /hpf Urine RBC (Auto) >20 H (0-2) /hpf U Hyaline Cast (Auto) 3-5 H (0-2) /lpf U Epithel Cells (Auto) 3-5 H (0-2) /hpf Urine Bacteria (Auto) 4+ H (None Seen) Stl C. cayetanensis PCR (NotDetected) Stool Rotavirus A PCR (NotDetected) Stl Adenov F 40/41 PCR (NotDetected) Stool Astrovirus (PCR) (NotDetected) Stool Campylobacter PCR (NotDetected) Stl C. diff Tox B Gene (Neg) Stool Cryptosporidium PCR (NotDetected) Stl E.coli Shiga Tox PCR (NotDetected) Stl Enterotoxigenic E PCR (NotDetected) Stool EPEC (PCR) (NotDetected) Stool EAEC (PCR) (NotDetected) Stl E. histolytica PCR (NotDetected) Stool Giardia Lamblia PCR (NotDetected) Stool Salmonella PCR (NotDetected) Stool Sapovirus (PCR) (NotDetected) Stl P. shigelloides PCR (NotDetected) Stl Shigella/EIEC PCR (NotDetected) St Y.enterocolitica PCR (NotDetected) Stool Vibrio (PCR) (NotDetected) Stl Vibrio cholerae PCR (NotDetected) Stl Norovirus GI/GII PCR (NotDetected) 10/25/24 10/25/24 10/25/24 Range/Units 16:47 14:49 12:38 WBC 15.02 H (4.8-10.8) K/ul RBC 3.12 L (4.20-5.40) M/uL Hgb 8.8 L (12.0-16.0) g/dl Hct 28.5 L (37.0-47.0) % MCV 91.3 (80.0-100.0) fL MCH 28.2 (25.0-34.0) pg MCHC 30.9 L (32.0-36.0) g/dL RDW Std Deviation 49.8 H (36.4-46.3) fL RDW Coeff of Mica 14.9 H (11.5-14.5) % Plt Count 421 H (130-400) K/uL MPV 8.3 L (9.4-12.4) fL Immature Gran % (Auto) 0.7 % Neut % (Auto) 89.7 % Lymph % (Auto) 4.6 % [place] % (Auto) 4.7 % Eos % (Auto) 0.0 % Baso % (Auto) 0.3 % Reticulocyte % (Auto) (0.50-2.00) % Neut # (Auto) 13.47 H (1.40-6.50) K/uL Lymph # (Auto) 0.69 L (1.20-3.40) K/uL [place] # (Auto) 0.71 H (0.11-0.59) K/uL Eos # (Auto) 0.00 (0.00-0.50) K/uL Baso # (Auto) 0.04 (0.00-0.20) K/uL Reticulocyte # (0.020-0.100) 10^6/uL Immature Gran # (Auto) 0.11 (0.01-0.20) K/uL Polychromasia VBG pH (7.36-7.41) VBG pCO2 (38-50) mmHg VBG pO2 mmHg VBG HCO3 mmol/L VBG O2 Saturation % VBG Base Excess mEq/L Sodium 135 L (136-145) mmol/L Potassium 4.9 (3.5-5.1) mmol/L Chloride 109 H (98-107) mmol/L Carbon Dioxide 13 L (21-32) mmol/L Anion Gap 13 H (3-11) BUN 69 H (6-23) mg/dl Creatinine 2.21 H (0.6-1.2) mg/dl Est Cr Clr Drug Dosing 17.9 ml/min eGFR 22.54 BUN/Creatinine Ratio 31.2 H (10-20) Glucose 147 H (70-99(Fasting)) mg/dl Lactate 0.8 (0.4-2.0) mmol/L Calcium 8.6 (8.6-10.3) mg/dl Phosphorus (2.5-4.9) mg/dl Magnesium 1.7 (1.7-2.4) mg/dl Iron (35-150) mcg/dl TIBC (250-450) mcg/dl Unsaturated IBC (155-355) mcg/dl Transferrin % Sat (15-50) % Ferritin (8-388) ng/ml Total Bilirubin 0.5 (0.2-1.0) mg/dl AST 9 L (13-39) U/L ALT 6 L (7-52) U/L Alkaline Phosphatase 419 H (34-104) U/L Lactate Dehydrogenase (86-244) U/L Troponin I High Sens 32.5 H 26.2 H (0-14) pg/ml Total Protein 7.0 (6.0-8.3) gm/dl Albumin 2.4 L (3.4-5.0) gm/dl Globulin 4.6 H (2.5-4.0) gm/dl Albumin/Globulin Ratio 0.5 L (0.9-2) Vitamin B12 (180-914) pg/ml Folate (>5.38) ng/ml Procalcitonin 6.77 H (0-0.5) ng/ml TSH 3.307 (0.300-4.500) uIu/ml Urine Color Urine Appearance (Clear) Urine pH (4.5-7.5) Ur Specific [place] (1.000-1.030) Urine Protein (Negative) Urine Glucose (UA) (Negative) Urine Ketones (Negative) Urine Blood (Negative) Urine Nitrite (Negative) Urine Bilirubin (Negative) Urine Urobilinogen (Negative) Ur Leukocyte Esterase (Negative) Urine WBC (Auto) (0-5) /hpf Urine RBC (Auto) (0-2) /hpf U Hyaline Cast (Auto) (0-2) /lpf U Epithel Cells (Auto) (0-2) /hpf Urine Bacteria (Auto) (None Seen) Stl C. cayetanensis PCR (NotDetected) Stool Rotavirus A PCR (NotDetected) Stl Adenov F 40/41 PCR (NotDetected) Stool Astrovirus (PCR) (NotDetected) Stool Campylobacter PCR (NotDetected) Stl C. diff Tox B Gene (Neg) Stool Cryptosporidium PCR (NotDetected) Stl E.coli Shiga Tox PCR (NotDetected) Stl Enterotoxigenic E PCR (NotDetected) Stool EPEC (PCR) (NotDetected) Stool EAEC (PCR) (NotDetected) Stl E. histolytica PCR (NotDetected) Stool Giardia Lamblia PCR (NotDetected) Stool Salmonella PCR (NotDetected) Stool Sapovirus (PCR) (NotDetected) Stl P. shigelloides PCR (NotDetected) Stl Shigella/EIEC PCR (NotDetected) St Y.enterocolitica PCR (NotDetected) Stool Vibrio (PCR) (NotDetected) Stl Vibrio cholerae PCR (NotDetected) Stl Norovirus GI/GII PCR (NotDetected) Diagnostic Findings Chest X-Ray 10/25/24 12:47 XR chest 1V portable CLINICAL HISTORY: weakness COMPARISON STUDY: Chest radiograph January 27, 2024. Chest CT September 02, 2011. FINDINGS: Lung volumes are normal. A 2.2 cm right midlung elongated density is present. There is no pneumothorax or pleural effusion. Cardiac size is normal. Mediastinal contours are normal. There is no evidence for pulmonary edema. IMPRESSION: 2.2 cm right midlung density. This may reflect a mild infectious process, atelectasis or scarring. However, a pulmonary lesion could appear similar. Follow-up PA and lateral chest radiographs in one month are recommended to ensure resolution. ACT 112: Positive. There are findings on this exam that require communication between the performing entity and the patient following Patient Test Result Information Act ([place] Act 112) guidelines. Electronically signed by: Regulo Justice M.D. 10/25/2024 1:23 PM Abdomen/Pelvis CT 10/25/24 18:32 Exam(s): CT ABDOMEN + PELVIS Without Contrast EXAM: CT Abdomen and Pelvis Without Intravenous Contrast CLINICAL HISTORY: Reason for exam: sepsis, diarrhea ?source ?vertebral osteomyelitis. TECHNIQUE: Axial computed tomography images of the abdomen and pelvis without intravenous contrast. CTDI is 18.98 mGy and DLP is 895.72 mGy-cm. Automated exposure control was utilized for the study. A dose lowering technique was utilized adhering to the principles of ALARA. COMPARISON: No relevant prior studies available. FINDINGS: Lung bases: Unremarkable. No mass. No consolidation. ABDOMEN: Liver: Unremarkable. Gallbladder and bile ducts: Postoperative changes prior cholecystectomy. No ductal dilation. Pancreas: Unremarkable. No ductal dilation. Spleen: Unremarkable. No splenomegaly. Adrenals: Unremarkable. No mass. Kidneys and ureters: Unremarkable. No obstructing stones. No hydronephrosis. Stomach and bowel: Large amount of stool within the rectum. Few scattered colonic diverticuli without evidence of diverticulitis. Unremarkable. Specifically no evidence of osteomyelitis. PELVIS: Appendix: No findings to suggest acute appendicitis. Bladder: Hoang catheter within the urinary bladder. No stones. Reproductive: Unremarkable as visualized. ABDOMEN and PELVIS: Intraperitoneal space: Unremarkable. No free air. No significant fluid collection. Bones/joints: See above. Soft tissues: Unremarkable. Vasculature: Unremarkable. No abdominal aortic aneurysm. Lymph nodes: Unremarkable. No enlarged lymph nodes. IMPRESSION: No acute findings in the abdomen or pelvis. Large amount of stool within the rectum. This may represent constipation. No CT evidence to suggest osteomyelitis on this study. Electronically signed by: Alfonso Coombs MD 10/25/24 22:59 PM [facility] X-Ray 10/28/24 07:21 [facility] CLINICAL HISTORY: Constipation. COMPARISON STUDY: CT of the abdomen and pelvis October 25, 2024. FINDINGS: The bowel gas pattern is normal. Large amount of stool within the rectum is similar to prior CT of October 25, 2024. The gallbladder is surgically absent. There is no evidence for free air on supine exam. IMPRESSION: 1. Large amount of stool within the rectum, similar to prior CT. 2. No evidence for a bowel obstruction. ACT 112: Negative or not required by law. Electronically signed by: Regulo Justice M.D. 10/28/2024 8:49 AM PG Care Time/CCT Total # of Minutes Spent Total Time Spent: 50 Total Time Spent with Patient: Total time spent is greater than 50% in coordination of care (as documented) at patient's floor/unit and/or counseling patient: [place] [address] SUB INP/OBS CARE 3/50MIN Patient Type Established History Comprehensive Exam Comprehensive Medical Decision Making High Complexity Diagnoses Persistent wound pain R52 Sacral pain M53.3 Nonhealing nonsurgical wound T14.8XXA Generalized weakness R53.1 Encounter for hospice care discussion Z71.89 Palliative care by specialist Z51.5
[2024-10-30] MEDS ORDERED: traMADol HCL 50 MG TABLET PO PRN ×2 (06:57→14:23)
[2024-10-30] MEDS: ACETAMINOPHEN 500 MG TAB PO SCH (08:52)
[2024-10-30] MEDS: DOCUSATE SODIUM/SENNA 50/8.6MG TAB PO SCH (08:54)
--- NOTE | 2024-10-30 13:42 | Communication Note ---
Date of Service: October 30, 2024 [facility] Med brief note - attempted to see pt who was sleeping and did not want to have a goals fo care discussion today. Unclear if she spoke with son but will revisit tomorrow No charge submitted Thank you for allowing us to participate in the ongoing care of this patient. Please page with any additional concerns. Krystal Medina DNP Director, Palliative Medicine
--- NOTE | 2024-10-30 14:25 | Hospitalist Progress Note ---
Date of Service October 30, 2024 Assessment & Plan (1) Sepsis: Plan: Follow up blood and urine cultures( initial culture is polymicrobial) , will culture sacral decubitus 10/30 as has persistent drainage, may ammend or extend antibiotics Suspected urinary source for initial workup vs decubitus ulcer which was present on admission. complete 5 days antibiotic currently downgrade to ceftriaxone CT A/P wo IV contrast no acute findings in the abdomen ( small change on CXR not felt to be clinical pneumonia) Placed palliative care consult as patient is complaining of significant pain and feels quality of life has deteriorated. wound care consulted. spoke to family about home with hospice (2) Diarrhea: Plan: consider overflow diarrhea from obstipation, does not want a rectal or enema (3) Sacral pain: Plan: unstageable sacral decubitus poa (4) Metabolic acidosis with normal anion gap and bicarbonate losses: Plan: remains with elevated bicarb, maybe from diarrhea Plan hopeful to make a decision on home hospice, pt hopes son will be here 10/30 Admission and Anticipated Discharge Date Admission Date: October 25, 2024 Subjective long discussion with pt, did have goals of care discussion, pt still leaning toward hospice care at home, understands that otherwise would likley require surgery to assist in wound clean up and possible wound closure Physical Exam Physical Exam: pleasant pain control is fair cardiac is regular lungs are clear but diminished at the bases Results & Data Results & Data Vital Signs (Past 12 Hours) Vital Signs Temp Pulse Pulse Resp BP Pulse Ox O2 Del Method 10/30/24 11:07 97.5 F L 59 L 18 118/60 97 Room Air 10/30/24 08:00 69 10/30/24 08:00 Room Air 10/30/24 07:08 97.7 F 66 18 153/62 H 98 Room Air 10/30/24 04:09 97.9 F 64 20 142/69 H 98 Room Air PG Care Time/CCT Total # of Minutes Spent Total Time Spent with Patient: Total time spent is greater than 50% in coordination of care (as documented) at patient's floor/unit and/or counseling patient: Coding Level of Care Code 84380 SUB INP/OBS CARE 2/35MIN Diagnoses Sepsis A41.9 Diarrhea R19.7 Sacral pain M53.3 Metabolic acidosis with normal anion gap and bicarbonate losses E87.20
[2024-10-30] MEDS: traMADol HCL 50 MG TABLET PO SCH (22:02)
[2024-10-31 07:21] LABS: Hematocrit (blood only) 26.4 % (37.0-47.0); Mean Corpuscular Hemoglobin 28.7 pg (25.0-34.0); Mean Corpuscular Hgb Conc 30.3 g/dL (32.0-36.0); Mean Corpuscular Volume 94.6 fL (80.0-100.0); Mean Platelet Volume 8.3 fL (9.4-12.4); Platelet Count 257 K/uL (130-400); RDW Coefficient of Variation 14.6 % (11.5-14.5); RDW Standard Deviation 50.6 fL (36.4-46.3); Red Blood Count 2.79 M/uL (4.20-5.40); White Blood Count 11.49 K/ul (4.8-10.8)
[2024-10-31 07:40] LABS: BUN Creatinine Ratio 19.4 (10-20); Creatinine Clr Calc Pharmacy 25.5 ml/min; Potassium 3.5 mmol/L (3.5-5.1)
--- NOTE | 2024-10-31 15:56 | Hospitalist Progress Note ---
Date of Service October 31, 2024 Assessment & Plan (1) Sepsis: Plan: Follow up blood and urine cultures( initial culture is polymicrobial) , culture sacral decubitus 10/30 as has persistent drainage, CT A/P wo IV contrast no acute findings in the abdomen ( small change on CXR not felt to be clinical pneumonia) Placed palliative care consult as patient is complaining of significant pain and feels quality of life has deteriorated. spoke to family about home with hospice, all in agreement, comfort care with antibiotics currently and look for home hospice 11/02 (2) Diarrhea: Plan: consider overflow diarrhea from obstipation, does not want a rectal or enema (3) Sacral pain: Plan: unstageable sacral decubitus poa (4) Metabolic acidosis with normal anion gap and bicarbonate losses: Plan: remains with elevated bicarb, maybe from diarrhea Plan MADE a decision on home hospice, pt hopes to be home on weekend Admission and Anticipated Discharge Date Admission Date: October 25, 2024 Subjective long discussion with pt, son, grand daughter and family friend, did have goals of care discussion, pt transition to hospice care at home, family is supportive will transition to comfort care with antibiotics here, coordinate hospice at home on monday11/02/24 Physical Exam Physical Exam: pleasant pain control is fair, will transition to oxycodone and iv morphine cardiac is regular lungs are clear but diminished at the bases Results & Data Results & Data Vital Signs (Past 12 Hours) Vital Signs Temp Pulse Pulse Resp BP Pulse Ox O2 Del Method 10/31/24 15:42 98.2 F 66 17 132/71 97 Room Air 10/31/24 08:13 98.1 F 73 18 117/63 96 Room Air 10/31/24 08:00 70 10/31/24 08:00 Room Air Laboratory Results review cbc review chemistry review all orders and meds for level of care change PG Care Time/CCT Total # of Minutes Spent Total Time Spent with Patient: Total time spent is greater than 50% in coordination of care (as documented) at patient's floor/unit and/or counseling patient: Coding Level of Care Code 18641 SUB INP/OBS CARE 3/50MIN Diagnoses Sepsis A41.9 Diarrhea R19.7 Sacral pain M53.3 Metabolic acidosis with normal anion gap and bicarbonate losses E87.20
[2024-11-01 14:11] VITALS: RESP 16; TEMP 98.2; O2SAT 98
--- NOTE | 2024-11-01 16:41 | Hospitalist Progress Note ---
Date of Service November 01, 2024 Assessment & Plan (1) Sepsis: Plan: urine culture( initial culture is polymicrobial) , culture sacral decubitus 10/30 as has persistent drainage, CT A/P wo IV contrast no acute findings in the abdomen, complete ceftriaxone treatment while inpt ( small change on CXR not felt to be clinical pneumonia) Placed palliative care consult as patient is complaining of significant pain and feels quality of life has deteriorated. spoke to family about home with hospice, all in agreement, comfort care with antibiotics currently and look for home hospice 11/02 (2) Diarrhea: Plan: consider overflow diarrhea from obstipation, does not want a rectal or enema loose bowels persist (3) Sacral pain: Plan: unstageable sacral decubitus poa (4) Metabolic acidosis with normal anion gap and bicarbonate losses: Plan: remains with elevated bicarb, maybe from diarrhea Plan MADE a decision on home hospice, pt hopes to be home on weekend Admission and Anticipated Discharge Date Admission Date: October 25, 2024 Subjective pt seems more at rest since the transition to comfort care with antibiotics here was made , coordinate hospice at home on monday11/02/24 Physical Exam Physical Exam: pleasant pain control is fair, will transition to oxycodone and iv morphine cardiac is regular lungs are clear but diminished at the bases Results & Data Results & Data Vital Signs (Past 12 Hours) Vital Signs Temp Pulse Resp BP Pulse Ox O2 Del Method 11/01/24 14:10 98.2 F 62 16 151/69 H 98 Room Air 11/01/24 11:08 97.7 F 59 L 17 160/72 H 97 Room Air 11/01/24 10:30 Room Air PG Care Time/CCT Total # of Minutes Spent Total Time Spent with Patient: Total time spent is greater than 50% in coordination of care (as documented) at patient's floor/unit and/or counseling patient: Coding Level of Care Code 10570 SUB INP/OBS CARE 2/35MIN Diagnoses Sepsis A41.9 Diarrhea R19.7 Sacral pain M53.3 Metabolic acidosis with normal anion gap and bicarbonate losses E87.20
[2024-11-02 08:07] VITALS: BP 145/61; PULSE 60
[2024-11-02] MEDS: oxyCODONE HCL IR 5 MG TAB (IMMEDIATE RELEASE) PO PRN (08:20)
--- NOTE | 2024-11-02 12:54 | Discharge Summary ---
Discharge Summary Date of Service November 02, 2024 Principal Dx & Hospital Course #1 = Principal Diagnosis (1) Sepsis: sacral decubitus 10/30 as has persistent drainage, likely source of sepsis urine culture( initial culture is polymicrobial) felt less likely CT A/P wo IV contrast no acute findings in the abdomen, complete ceftriaxone treatment while inpt ( small change on CXR not felt to be clinical pneumonia) Placed palliative care consult as patient is complaining of significant pain and feels quality of life has deteriorated. spoke to family about home with hospice, all in agreement, transition to home hospice 11/02 (2) Diarrhea: consider overflow diarrhea from obstipation, does not want a rectal or enema loose bowels persist places at risk for infection of wound and urine (3) Sacral pain: unstageable sacral decubitus poa (4) Metabolic acidosis with normal anion gap and bicarbonate losses: remains with elevated bicarb, maybe from diarrhea Plan MADE a decision on home hospice, home hospice agency to manage pain Admission HPI Per Admitting Provider Yohana Rutherford is a 74 year old female who presenst to the ER with 2 week history of generally not feeling unwell. She denies any fever, chills, chest pain, shortness of breath, nasal congestion, cough, abdominal pain or urinary symptoms. She reports having decreased appetite and diarrhea during this time. She has ongoing open wound on her sacrum which has been getting worse recently. She notes not eating or drinking well for the last 2 weeks but no nausea, vomiting, dysphagia or odynophagia. No recent antibiotic use or history of c. diff but she has noticed her stool has been watery. Discharge Exam pleasant concerns regarding pain with movement was medicated prior to discharge Discharge Plan Discharge Items Patient Disposition: Hospice - Home Reason For Visit: SEPSIS Discharge Diagnosis: sepsis from sacral decubitus bedsore decision to go home home with hospice Activity: Per Instructions section Activity Comment: activity only as pt desires Non-emergency contact: Primary Care Provider Call non-emergency contact if: your symptoms worsen Follow-up/Referrals: Gwen Bravo MD [Primary Care Provider] - Diet: Regular Addtl Attending Provider Instructions: please engage with home health/home hospice Pending Studies at Discharge: No Stand-Alone Forms: My [facility] Medications and DC Order Prescriptions: New sennosides-docusate sodium [Senokot-S] 8.6-50 mg Tablet 2 tab PO QAM Qty: 60 0RF oxycodone 5 mg Tablet 5 mg PO Q6H PRN (Reason: pain) Qty: 30 0RF ondansetron HCl 4 mg tablet 4 mg PO Q8H PRN (Reason: nausea and vomiting) Qty: 20 0RF Continued allopurinol 100 mg tablet 100 mg PO QAM silver sulfadiazine 1 % cream 1 applic TOPICAL DAILY PRN (Reason: Skin Irritation) ondansetron HCl 4 mg tablet 4 mg PO Q8H PRN (Reason: NAUSEA/VOMITING) albuterol sulfate 90 mcg/actuation Hfa Aerosol Inhaler 2 puff INHALATION DIRECTED PRN (Reason: Shortness Of Breath Or Wheezing) Changed acetaminophen 650 mg Tablet Extended Release 1,000 mg PO TID Qty: 0 0RF Rx Instructions: Unable to verify OTC meds at this date/time. Discontinued metoprolol tartrate 50 mg tablet 50 mg PO BID Eliquis 2.5 mg Tablet 0 mg PO BID Rx Instructions: Hasn't been filled since 01/2024 x90 day supply. Original Directions: 2.5mg by mouth twice daily Discharge Orders: Discharge Order (Routine); Ordered 11/02/24 Ordered By: Troy Hall Admission Data Admit Date/Time: 10/25/24 19:09 Attending Provider: Troy Hall Admit Provider: Teofilo Delong Primary Care Provider: Gwen Bravo Other Providers: Sarah Medina; [place]; [facility]; Teofilo Delong; Brittany Luque Other Interventions: Discharge Summary Assessment (RN) Last Done: 11/02/24 09:03 Hospital Stay Data Consultations 10/25/24 18:05 ED Decision to Admit Stat 10/26/24 22:17 Consult Palliative Care Routine 10/28/24 10:48 Consult Palliative Care Routine Diagnostic Imagining Performed 10/25/24 18:32 CT Abd and Pelvis [CT abd pelvis wo con] Stat Pending Results Patient Have Any Pending Studies at Discharge: No Discharge Instructions Given to Patient (Per Discharging Provider) please engage with home health/home hospice Total Time Total Time Spent Total Time Spent (In Minutes): It required greater than 30 minutes to prepare this patient for discharge. Coding Level of Care Code 58735 INP/OBS DISCH >30 MIN Diagnoses Sepsis A41.9 Diarrhea R19.7 Sacral pain M53.3 Metabolic acidosis with normal anion gap and bicarbonate losses E87.20
== END 2024-11-02 11:30 | disposition hospice, home (50) | DRG 872 ==
LOC: ED 12:24 → 4W 19:09 → SUATTDRO 19:09 → 4W 20:51 → 3W 10-31 18:50

== ENCOUNTER 2024-11-12 15:24 | Inpatient (IN) ==
--- NOTE | 2024-11-12 15:52 | Emergency Department Note ---
Impression & Plan Hypotension, Anemia, Sacral wound, Hospice care, Hypomagnesemia, Hypocalcemia ED Provider Note NAME: DANIE PATEL AGE: 74 SEX: F : 1950 ARRIVES VIA: Ambulance INFORMANT: [Patient][ems, nursing] ED PROVIDER(S): [Jordy Sawyer MD] CHIEF COMPLAINT: Wound HISTORY OF PRESENT ILLNESS: The patient is a 74-year-old female who left our hospital 10 days ago, she was in the hospital for sepsis. She has an extensive gangrenous sacral wound. Today, the patient's son who is by report, the power of corporate associate attorney, decided the patient was no longer on hospice and called the ambulance for an evaluation in our ER. Patient has been receiving oxycodone for pain. There is some concern from EMS that the patient is also receiving gabapentin given by the son. The patient is drowsy but states she does not want to be here at the hospital. The patient's wounds have a foul gangrenous odor. She has a Hoang catheter in place. She presents hypotensive, somnolent, she does not appear in distress. PMHx/PSHx/Social Hx: See Below PHYSICAL EXAM: GENERAL: Patient is in no acute distress. HEENT: No acute trauma, normocephalic atraumatic, mucous membranes dry, no nasal congestion. NECK: No stridor, no adenopathy, no meningismus, trachea is midline. LUNGS: Diminished breath sounds bilaterally, there is no wheezing or respiratory distress. HEART: Somewhat tachycardic, regular rhythm, no murmurs. ABDOMEN: Soft, nontender, no peritonitis. EXTREMITIES: No cyanosis, full range of motion of all the joints without pain or difficulty. NEUROLOGIC: Somnolent, seen to move all extremities. SKIN: No jaundice, no diaphoresis. Pale. Buttock: There is a foul-smelling extensive gangrenous wound to the entire sacrum. There is discharge noted. A culture was obtained. DIFFERENTIAL DIAGNOSIS: Sepsis or bacteremia, cellulitis, dehydration, anemia, UTI, among others. EMERGENCY DEPARTMENT PROCEDURES: MEDICAL DECISION MAKING: There is no leukocytosis. The patient is anemic with a hemoglobin of 6.8. She carries a history of anemia but today's value is lower than her recent testing. There was a normal platelet count. INR somewhat elevated at 1.3. VBG did not show acidosis or CO2 retention. Creatinine was elevated at 2.49, this is indicative of dehydration and is above her typical baseline. Magnesium is low 1.4. Calcium is low at 6.8. Cardiac troponin testing was elevated consistent with potential cardiac injury versus mismatch given her hypotension. ECG showed a sinus tachycardia, no obvious acute ST elevation. There were some subtle liver enzyme elevations. Chest x-ray did not show CHF or pneumonia. On exam, the patient was hypotensive, pale and somewhat somnolent. She was tachycardic. The patient had left our hospital a very short time ago on hospice care. Today, her son became upset with her care and revoked hospice and had her brought to the hospital. I spoke with the case management team, I spoke with the hospice physician, Dr. Drake. The patient did receive IV saline for hydration. She was given IV Zosyn as antibiotic coverage. She received IV calcium gluconate and IV magnesium for the lower calcium and magnesium values. I did speak with the son. He is upset with the fact that his mother is dying, he thought maybe something could be done to help heal her wound. Unfortunately, this is not possible. Her wound is extensive and gangrenous and not surgically correctable. She is not going to be able to survive this infection. The patient's son was, eventually, in understanding of the depth of his mother's illness. He asked if she could go back on hospice care. Unfortunately, this cannot happen until tomorrow. The patient will need to be hospitalized overnight and hospice reinstated tomorrow morning. Of note, the patient's blood pressure did improve with the IV hydration. The patient was not aggressively managed for this infection as she is, essentially, still on hospice. She was not treated like a typical septic patient. Comfort measures are to be first and foremost. The patient remained somewhat somnolent, she did not require any pain medication while under my care. I did speak again with case management, the on-call hospitalist was consulted. Prior/Outside records/notes reviewed: Today's EMS notes describing her presentation and transport to this hospital. Discharge summary note from 11/02/2024 describing her presentation, her hospital care and plan at discharge. ECG per my interpretation: Indication was for sepsis. The ECG shows a sinus tachycardia with some PACs. The rate is 134. There is no acute ST elevation, there is some nonspecific ST change. No PVCs. The QTc is 453. Continuous Cardiac Monitoring per my interpretation: An order was placed for continuous cardiac monitoring. The monitor shows a rate of 131 with sinus tachycardia. Imaging/x-ray results per my interpretation: Chest x-ray does not show mediastinal widening, pneumonia or pneumothorax. Chronic Medical/Social conditions affecting care: Advanced age, recent hospice care Care/Management discussed with: Case management, the on-call hospitalist. Hospice physician-Dr. Drake. Lengthy conversation with the patient's son. Level of care consideration(s): After review of the information above and other included data: --I believe the patient requires escalation of care to admission Critical Care Note: I have personally spent 51 minutes of critical care time in the direct management of this patient. This includes bedside care, interpretation of diagnostic studies, and testing, discussion with consultants, patient, and family members, and other required patient management activities. This 51 minutes is in excess of all separately billable procedures. DISPOSITION: Admission Past Med/Surg History Problem List Hypocalcemia (Acute) Hypomagnesemia (Acute) Hospice care (Acute) Sacral wound (Acute) Anemia (Acute) Hypotension (Acute) Comfort measures only status Skin ulcer of perineum, limited to breakdown of skin (Acute) Pressure ulcer of right hip (Acute) Pressure ulcer of left hip (Acute) SIRS (systemic inflammatory response syndrome) (Acute) Persistent wound pain Sacral pain Nonhealing nonsurgical wound Encounter for hospice care discussion Advanced care planning/counseling discussion Palliative care by specialist Elevated alkaline phosphatase level Metabolic acidosis with normal anion gap and bicarbonate losses Abnormal CXR Diarrhea Sepsis Acute hypoxic respiratory failure Aspiration into airway Iron deficiency Ambulatory dysfunction (Acute) Generalized weakness Hyponatremia Urinary tract infection Symptomatic anemia Medical History CKD (chronic kidney disease) stage 4, GFR 15-29 ml/min Generalized weakness COPD (chronic obstructive pulmonary disease) has occasional cough Acute hypoxic respiratory failure 01/2024 "due to huge blood clot in lungs" Wheelchair dependence Ambulatory dysfunction Aspiration into airway 01/2024, admitted to hospital w/UTI, "aspirated and due to this and was resuscitated even though she had a DNR" Factor 5 Leiden mutation, heterozygous Sacral wound "still has, has seen [address]" Asthma inh prn>"rare use" Hypertension Gout Anemia requiring transfusions 01/2024, no current issues Chronic anticoagulation Hx pulmonary embolism 2010 or 2011, 2/2 Factor V Surgical History Hx of left cataract extraction Hx of cholecystectomy Hx of eye surgery in her 30's, for "lazy eye" Family History Other Family history non-contributory Social History Smoking Status: Never smoker Second Hand Exposure: No; Do You Dip or Chew Tobacco: No; Hx Alcohol Use: No Hx Substance Use: No Preferred Language: Cymro Communication Ability: Impaired Communication Ability Comment: pt is comfort and is not responding Internal Communications Specialist Required: No Beliefs That Will Affect Care: None marital status: / Current Living Situation: Family Current Living Situation Comment: Pt lives at home with son and granddaughters current occupational status: employed Other Information That Helps Us Care for You: No Feels Safe at Home: Yes Assistive Devices: Wheelchair Allergies Allergies Allergy/AdvReac Type Severity Reaction Status Date / Time No Known Allergies Allergy Verified 09/17/24 11:54 Home Meds Home Medications Medication Instructions Recorded Confirmed allopurinol 100 mg tablet 100 mg PO QAM 10/23/19 10/25/24 albuterol sulfate 90 mcg/actuation 2 puff inhalation DIRECTED PRN 01/25/24 10/25/24 aerosol inhaler Shortness Of Breath Or Wheezing ondansetron HCl 4 mg tablet 4 mg PO Q8H PRN NAUSEA/VOMITING 01/25/24 10/25/24 silver sulfadiazine 1 % topical 1 applic topical DAILY PRN Skin 01/25/24 10/25/24 cream Irritation Previous Rx's Medication Instructions Recorded acetaminophen 650 mg 1,000 mg (1.5385 x 650 mg) PO TID 11/02/24 tablet,extended release Pain #0 tabs ondansetron HCl 4 mg tablet 4 mg PO Q8H PRN nausea and 11/02/24 vomiting #20 tabs oxycodone 5 mg tablet 5 mg PO Q6H PRN pain #30 tabs 11/02/24 sennosides 8.6 mg-docusate sodium 2 tab PO QAM #60 tabs 11/02/24 50 mg tablet (Senokot-S) Results & Data (ED) Vital Signs Vital Signs - 24 hr 11/12/24 15:24 11/12/24 15:51 11/12/24 16:04 Temperature 37.2 C Temperature Source Rectal Pulse Rate 138 H 136 H 138 H Pulse Rate [Right Finger] Respiratory Rate 20 Respiratory Effort / Characteristics Non-Labored Spontaneous Respiratory Depth Normal Respiratory Pattern Regular Blood Pressure 85/45 L Blood Pressure [Right Arm] Blood Pressure Mean 58 Blood Pressure Mean [Right Arm] Pulse Oximetry 96 96 Oxygen Delivery Method Room Air Room Air Sepsis Recent Fever Within 48 Hours No Sepsis New/Unexplained Change in Mental Status N/A Sepsis Action Taken by Nursing No Action Required 11/12/24 16:14 11/12/24 17:30 Temperature Temperature Source Pulse Rate Pulse Rate [Right Finger] 132 H 118 H Respiratory Rate 20 20 Respiratory Effort / Characteristics Non-Labored Spontaneous Non-Labored Spontaneous Respiratory Depth Normal Normal Respiratory Pattern Regular Regular Blood Pressure Blood Pressure [Right Arm] 78/64 L 120/65 Blood Pressure Mean Blood Pressure Mean [Right Arm] 68 83 Pulse Oximetry 96 97 Oxygen Delivery Method Room Air Room Air Sepsis Recent Fever Within 48 Hours Sepsis New/Unexplained Change in Mental Status Sepsis Action Taken by [facility] Medications Current Medication List: was personally reviewed by me Laboratory Data Attestation: I reviewed the patient's lab results. 11/12/24 16:33 11/12/24 16:33 Lab Results 11/12/24 11/12/24 Range/Units 16:33 16:44 WBC 8.61 (4.8-10.8) K/ul RBC 2.34 L (4.20-5.40) M/uL Hgb 6.8 L* (12.0-16.0) g/dl Hct 22.5 L (37.0-47.0) % MCV 96.2 (80.0-100.0) fL MCH 29.1 (25.0-34.0) pg MCHC 30.2 L (32.0-36.0) g/dL RDW Std Deviation 52.3 H (36.4-46.3) fL RDW Coeff of Mica 15.0 H (11.5-14.5) % Plt Count 147 (130-400) K/uL MPV 8.6 L (9.4-12.4) fL Immature Gran % (Auto) 0.7 % Neut % (Auto) 84.0 % Lymph % (Auto) 10.7 % [place] % (Auto) 4.3 % Eos % (Auto) 0.1 % Baso % (Auto) 0.2 % Neut # (Auto) 7.23 H (1.40-6.50) K/uL Lymph # (Auto) 0.92 L (1.20-3.40) K/uL [place] # (Auto) 0.37 (0.11-0.59) K/uL Eos # (Auto) 0.01 (0.00-0.50) K/uL Baso # (Auto) 0.02 (0.00-0.20) K/uL Immature Gran # (Auto) 0.06 (0.01-0.20) K/uL RBC Morphology Unremarkable PT 13.9 H (9.0-12.0) Seconds INR 1.3 H (0.9-1.1) APTT 43 H (21-31) Seconds PTT Ratio 1.6 VBG pH 7.37 (7.36-7.41) VBG pCO2 47 (38-50) mmHg VBG pO2 32 mmHg VBG HCO3 27 mmol/L VBG O2 Saturation < 60.0 % VBG Base Excess 1.3 mEq/L Sodium 135 L (136-145) mmol/L Potassium 3.7 (3.5-5.1) mmol/L Chloride 100 (98-107) mmol/L Carbon Dioxide 26 (21-32) mmol/L Anion Gap 9 (3-11) BUN 45 H (6-23) mg/dl Creatinine 2.49 H (0.6-1.2) mg/dl Est Cr Clr Drug Dosing 15.8 ml/min eGFR 19.54 BUN/Creatinine Ratio 18.1 (10-20) Glucose 107 H (70-99(Fasting)) mg/dl Lactate 1.8 (0.4-2.0) mmol/L Calcium 6.8 L (8.6-10.3) mg/dl Magnesium 1.4 L (1.7-2.4) mg/dl Total Bilirubin 0.5 (0.2-1.0) mg/dl Direct Bilirubin 0.2 (0-0.2) mg/dl AST 11 L (13-39) U/L ALT 4 L (7-52) U/L Alkaline Phosphatase 233 H (34-104) U/L Troponin I High Sens 269.5 H* (0-14) pg/ml Total Protein 5.2 L (6.0-8.3) gm/dl Albumin 1.7 L (3.4-5.0) gm/dl Procalcitonin 1.86 H (0-0.5) ng/ml Administered Medications Lorazepam (Lorazepam 2 Mg/1 Ml Vial) 0.5 mg IV Q4H PRN PRN Reason: Anxiety/Agitation Stop: 12/12/24 19:33 Last Admin: 11/13/24 05:38 Dose: 0.5 mg Documented By: KSC Morphine Sulfate (Morphine Sulfate 2 Mg/Ml Carp) 2 mg IV Q4H PRN PRN Reason: Pain or Respiratory Distress Stop: 11/26/24 19:33 Last Admin: 11/13/24 11:18 Dose: 2 mg Documented By: Admin: 11/13/24 05:38 Dose: 2 mg Documented By: Admin: 11/12/24 21:20 Dose: 2 mg Documented By: KSMoon Discontinued Medications Sodium Chloride (Nss) 1,000 mls @ 999 mls/hr IV .Q1H1M TORRI Stop: 11/12/24 16:45 Last Infusion: 11/12/24 17:25 Dose: Infused Documented By: NRAlva Admin: 11/12/24 16:21 Dose: 999 mls/hr Documented By: NRAlva Piperacillin Sod/Tazobactam Sod (Zosyn) 4.5 gm in 100 mls @ 200 mls/hr IV NOW ONE Stop: 11/12/24 16:15 Last Infusion: 11/12/24 17:30 Dose: Infused Documented By: Admin: 11/12/24 17:00 Dose: 200 mls/hr Documented By: NRB Sodium Chloride (Nss) 1,000 mls @ 999 mls/hr IV .Q1H1M ONE Stop: 11/12/24 17:26 Last Infusion: 11/12/24 19:25 Dose: Infused Documented By: Admin: 11/12/24 17:25 Dose: 999 mls/hr Documented By: JOHNNY Calcium Gluconate () 1,000 mg in 60 mls @ 240 mls/hr IV NOW STA Stop: 11/12/24 17:30 Last Infusion: 11/12/24 18:18 Dose: Infused Documented By: Admin: 11/12/24 18:03 Dose: 240 mls/hr Documented By: JOHNNY Magnesium Sulfate/Dextrose (Magnesium Sulfate / D5w) 1 gm in 100 mls @ 100 mls/hr IV NOW STA Stop: 11/12/24 18:15 Last Infusion: 11/12/24 19:23 Dose: Infused Documented By: Admin: 11/12/24 18:23 Dose: 100 mls/hr Documented By: VENKATESH Discharge Plan Visit Data Chief Complaint: Wound Stated Complaint: REQUEST TO HAVE WOUNDS CHECKED ED Provider: Jordy Sawyer Discharge Problem: Hypotension, Anemia, Sacral wound, Hospice care, Hypomagnesemia, Hypocalcemia Patient Disposition: Admitted As Inpatient Condition: Serious Discharge Instructions Interventions: ED Discharge Assessment Last Done: 11/12/24 19:35 Discharge Problem: Hypotension Qualifiers: Hypotension type: unspecified hypotension type Qualified Code(s): I95.9 - Hypotension, unspecified Anemia Qualifiers: Anemia type: unspecified type Qualified Code(s): D64.9 - Anemia, unspecified Sacral wound Qualifiers: Encounter type: initial encounter Qualified Code(s): S31.000A - Unspecified open wound of lower back and pelvis without penetration into retroperitoneum, initial encounter
[2024-11-12] MEDS: SODIUM CHLORIDE 0.9% 1,000 ML IV SCH (16:21)
[2024-11-12 16:52] LABS: Base Excess VBG 1.3 mEq/L; HCO3 VBG 27 mmol/L; Oxygen Saturation VBG < 60.0 %; PCO2 VBG 47 mmHg (38-50); PO2 VBG 32 mmHg; pH VBG 7.37 (7.36-7.41)
[2024-11-12 16:56] LABS: Hematocrit (blood only) 22.5 % (37.0-47.0); Hemoglobin 6.8 g/dl (12.0-16.0); Mean Corpuscular Hemoglobin 29.1 pg (25.0-34.0); Mean Corpuscular Hgb Conc 30.2 g/dL (32.0-36.0); Mean Corpuscular Volume 96.2 fL (80.0-100.0); Mean Platelet Volume 8.6 fL (9.4-12.4); Platelet Count 147 K/uL (130-400); RDW Standard Deviation 52.3 fL (36.4-46.3); Red Blood Count 2.34 M/uL (4.20-5.40); White Blood Count 8.61 K/ul (4.8-10.8)
[2024-11-12] MEDS: PIPERACILLIN/TAZOBACTAM 4.5 GM/100 ML BAG IV ONE (17:00)
[2024-11-12 17:03] LABS: Albumin Level 1.7 gm/dl (3.4-5.0); BUN Creatinine Ratio 18.1 (10-20); Bilirubin Direct 0.2 mg/dl (0-0.2); Bilirubin,Total 0.5 mg/dl (0.2-1.0); Calcium 6.8 mg/dl (8.6-10.3); Creatinine Clr Calc Pharmacy 15.8 ml/min; Magnesium 1.4 mg/dl (1.7-2.4); Potassium 3.7 mmol/L (3.5-5.1); Total Protein 5.2 gm/dl (6.0-8.3)
--- NOTE | 2024-11-12 17:07 | XRay Report ---
EXAM: Radiograph of the Chest 1 View INDICATION: Sepsis. TECHNIQUE: Frontal view of the chest. COMPARISON: 10/25/2024 and 01/27/2024 FINDINGS: Lungs and pleural spaces: No consolidation or pulmonary edema. No pleural effusion or pneumothorax. Heart: Shape and configuration within normal limits allowing for technique. Mediastinum: Normal contour. Bones/joints: Degenerative changes noted throughout the spine. No acute osseous abnormality seen. Soft tissues: No abnormality noted. No radiopaque foreign body noted. Upper abdomen: No abnormality noted. IMPRESSION: No acute cardiopulmonary disease. ACT 112: Negative or not required by law. Electronically signed by Laura Kebede 11-12-2024 5:06 PM
[2024-11-12 17:13] LABS: Troponin I High Sensitivity 269.5 pg/ml (0-14)
[2024-11-12 17:19] LABS: Basophils # (auto) 0.02 K/uL (0.00-0.20); Basophils % (auto) 0.2 %; Eosinophils # (auto) 0.01 K/uL (0.00-0.50); Eosinophils % (auto) 0.1 %; Immature Granulocytes # (auto) 0.06 K/uL (0.01-0.20); Immature Granulocytes % (auto) 0.7 %; Lymphocytes # (auto) 0.92 K/uL (1.20-3.40); Lymphocytes % (auto) 10.7 %; Monocytes # (auto) 0.37 K/uL (0.11-0.59); Monocytes % (auto) 4.3 %; Neutrophils # (auto) 7.23 K/uL (1.40-6.50); RBC Morphology Unremarkable
[2024-11-12] MEDS: SODIUM CHLORIDE 0.9% 1,000 ML IV ONE (17:25)
[2024-11-12 17:29] LABS: INR 1.3 (0.9-1.1); Partial Thromboplastin Ratio 1.6; Partial Thromboplastin Time 43 Seconds (21-31); Prothrombin Time 13.9 Seconds (9.0-12.0)
[2024-11-12] MEDS: CALCIUM GLUCONATE 1,000 MG/60 ML BAG IV STA (18:03)
[2024-11-12] MEDS: MAGNESIUM SULFATE / D5W 1 GM/100 ML BAG IV STA (18:23)
[2024-11-12] MEDS ORDERED: MoRPHine SULFATE 10 MG/0.5 ML UDP PO PRN (19:34)
[2024-11-12] MEDS ORDERED: HYOSCYAMINE SULFATE 0.125 MG TAB SL PRN (19:34)
[2024-11-12] MEDS ORDERED: GLYCOPYRROLATE 0.2 MG/ML VIAL IV PRN (19:34)
[2024-11-12] MEDS ORDERED: ONDANSETRON INJ 2 MG/ML 2 ML VIAL IV PRN (19:34)
--- NOTE | 2024-11-12 19:41 | History & Physical Report ---
Date of Service November 12, 2024 Assessment & Plan (1) Comfort measures only status: Plan: Plan to discharge tomorrow back on hospice care but unable to discharge from ER with hospice care at this time I was unable to contact son on admission however plan discussed between son and ER physician and main goal is for her not to be in pain, patient made her wishes very clear last admission for hospice in addition Morphine for shortness of breath or pain Lorazepam for agitation Ondansetron for nausea Plan VTE Prophylaxis - comfort care Diet - regular if able Disposition - observation to med/surg Admission and Anticipated Discharge Date Admission Date: November 12, 2024 History of Present Illness Chief Complaint: None Primary Care Provider: Gwen Bravo MD Yohana Rutherford is a 74 year old female who presents to the ER as her son became power of medical office administrator as she was not longer able to make decisions and wished her to be seen in the hospital and taken off hospice care. Unable to get any history from the patient when seen, she is currently comfortable sleeping and on comfort care therefore not in her interests to wake up with noxious stimuli. Son is no longer available at bedside - I tried calling her son Bladimir Rutherford however no answer on number provided and voicemail box was full. History obtained from chart review and ER physician. She was recently admitted from October 25 - November 02, 2024 with sepsis from her sacral ulcer. She was in such pain last admission and the ulcer was at such an advanced stage she wished to be discharged on comfort care and made this clear throughout her admission from her second day. She was discharged home on comfort care per patient wishes. The patient also made it clear to the ER physician she did not want to be here in hospital. I understand however the patient son saw her today and decided the patient was no longer on hospice and called for an ambulance for an evaluation in the ER. After extensive discussion with the ER physician he also now wishes to concentrate on her comfort and wishes to make her hospice care again however the agency cannot take her back until tomorrow and there is also concern whether she can adequately get what she needs from hospice at her home. Allergies Allergy/AdvReac Type Severity Reaction Status Date / Time No Known Allergies Allergy Verified 09/17/24 11:54 Home Medications Medication Instructions Recorded Confirmed Type allopurinol 100 mg tablet 100 mg PO QAM 10/23/19 10/25/24 History albuterol sulfate 90 mcg/actuation 2 puff inhalation DIRECTED PRN 01/25/24 10/25/24 History aerosol inhaler Shortness Of Breath Or Wheezing ondansetron HCl 4 mg tablet 4 mg PO Q8H PRN NAUSEA/VOMITING 01/25/24 10/25/24 History silver sulfadiazine 1 % topical 1 applic topical DAILY PRN Skin 01/25/24 10/25/24 History cream Irritation acetaminophen 650 mg 1,000 mg (1.5385 x 650 mg) PO TID 11/02/24 10/25/24 Rx tablet,extended release Pain #0 tabs ondansetron HCl 4 mg tablet 4 mg PO Q8H PRN nausea and 11/02/24 Rx vomiting #20 tabs oxycodone 5 mg tablet 5 mg PO Q6H PRN pain #30 tabs 11/02/24 Rx sennosides 8.6 mg-docusate sodium 2 tab PO QAM #60 tabs 11/02/24 Rx 50 mg tablet (Senokot-S) Past Med/Surg History Problem List (Updated 11/12/24 @ 19:39 by Teofilo Delong MD) Comfort measures only status Skin ulcer of perineum, limited to breakdown of skin (Acute) Pressure ulcer of right hip (Acute) Pressure ulcer of left hip (Acute) SIRS (systemic inflammatory response syndrome) (Acute) Persistent wound pain Sacral pain Nonhealing nonsurgical wound Encounter for hospice care discussion Advanced care planning/counseling discussion Palliative care by specialist Elevated alkaline phosphatase level Metabolic acidosis with normal anion gap and bicarbonate losses Abnormal CXR Diarrhea Sepsis Acute hypoxic respiratory failure Aspiration into airway Iron deficiency Ambulatory dysfunction (Acute) Generalized weakness Hyponatremia Urinary tract infection Symptomatic anemia Medical History CKD (chronic kidney disease) stage 4, GFR 15-29 ml/min Generalized weakness COPD (chronic obstructive pulmonary disease) has occasional cough Acute hypoxic respiratory failure 01/2024 "due to huge blood clot in lungs" Wheelchair dependence Ambulatory dysfunction Aspiration into airway 01/2024, admitted to hospital w/UTI, "aspirated and due to this and was resuscitated even though she had a DNR" Factor 5 Leiden mutation, heterozygous Sacral wound "still has, has seen [address]" Asthma inh prn>"rare use" Hypertension Gout Anemia requiring transfusions 01/2024, no current issues Chronic anticoagulation Hx pulmonary embolism 2010 or 2011, 2/2 Factor V Surgical History Hx of left cataract extraction Hx of cholecystectomy Hx of eye surgery in her 30's, for "lazy eye" Family History Other Family history non-contributory Social History Smoking Status: Never smoker Second Hand Exposure: No; Do You Dip or Chew Tobacco: No; Hx Alcohol Use: No Hx Substance Use: No Preferred Language: Slovak Communication Ability: Impaired Communication Ability Comment: pt is comfort and is not responding Rn Case Manager Hospice Required: No Beliefs That Will Affect Care: None marital status: / Current Living Situation: Family Current Living Situation Comment: Pt lives at home with son and granddaughters current occupational status: employed Other Information That Helps Us Care for You: No Feels Safe at Home: Yes Assistive Devices: Glasses Review of Systems Review of Systems: Unobtainable due to cognitive status Physical Exam Constitutional: well developed; + not well nourished and no acute distress Patient is sleeping in no acute distress Results & Data Results & Data Vital Signs (Past 12 Hours) Vital Signs Temp Pulse Pulse Resp BP BP Pulse Ox 11/12/24 18:02 122 H 20 110/48 L 95 11/12/24 17:30 118 H 20 120/65 97 11/12/24 16:14 132 H 20 78/64 L 96 11/12/24 16:04 138 H 96 11/12/24 15:51 136 H 11/12/24 15:24 37.2 C 138 H 20 85/45 L 96 O2 Del Method 11/12/24 18:02 Room Air 11/12/24 17:30 Room Air 11/12/24 16:14 Room Air 11/12/24 16:04 Room Air 11/12/24 15:51 11/12/24 15:24 Room Air Laboratory Results Abnormal lab results 11/12/24 Range/Units 16:33 RBC 2.34 L (4.20-5.40) M/uL Hgb 6.8 L* (12.0-16.0) g/dl Hct 22.5 L (37.0-47.0) % MCHC 30.2 L (32.0-36.0) g/dL RDW Std Deviation 52.3 H (36.4-46.3) fL RDW Coeff of Mica 15.0 H (11.5-14.5) % MPV 8.6 L (9.4-12.4) fL Neut # (Auto) 7.23 H (1.40-6.50) K/uL Lymph # (Auto) 0.92 L (1.20-3.40) K/uL PT 13.9 H (9.0-12.0) Seconds INR 1.3 H (0.9-1.1) APTT 43 H (21-31) Seconds Sodium 135 L (136-145) mmol/L BUN 45 H (6-23) mg/dl Creatinine 2.49 H (0.6-1.2) mg/dl Glucose 107 H (70-99(Fasting)) mg/dl Calcium 6.8 L (8.6-10.3) mg/dl Magnesium 1.4 L (1.7-2.4) mg/dl AST 11 L (13-39) U/L ALT 4 L (7-52) U/L Alkaline Phosphatase 233 H (34-104) U/L Troponin I High Sens 269.5 H* (0-14) pg/ml Total Protein 5.2 L (6.0-8.3) gm/dl Albumin 1.7 L (3.4-5.0) gm/dl Procalcitonin 1.86 H (0-0.5) ng/ml Diagnostic Findings Radiograph of the Chest 1 View INDICATION: Sepsis. TECHNIQUE: Frontal view of the chest. COMPARISON: 10/25/2024 and 01/27/2024 FINDINGS: Lungs and pleural spaces: No consolidation or pulmonary edema. No pleural effusion or pneumothorax. Heart: Shape and configuration within normal limits allowing for technique. Mediastinum: Normal contour. Bones/joints: Degenerative changes noted throughout the spine. No acute osseous abnormality seen. Soft tissues: No abnormality noted. No radiopaque foreign body noted. Upper abdomen: No abnormality noted. IMPRESSION: No acute cardiopulmonary disease. Medications Administered ER Medications Given: Normal saline 1000ml bolus Zosyn 4.5g IV Normal saline 1000ml bolus Calcium gluconate 1000mg IV Magnesium sulfate 1g IV ECG Rate (beats per minute): 134 Rhythm: sinus tachycardia Findings: + nonspecific-ST abn and + PAC Comparison ECG Date: from (October 25, 2024) Change: the following changes noted (PAC now present) Code Status & VTE Plan Code Status DNR/DNI VTE Prophylaxis Plan VTE Prophylaxis will be ordered: No Reason for no VTE drug order: Treatment not indicated PG Care Time/CCT Total # of Minutes Spent Total Time Spent with Patient: Total time spent is greater than 50% in coordination of care (as documented) at patient's floor/unit and/or counseling patient: Coding Level of Care Code 11565 INT INP/OBS CARE 2/55MIN Diagnoses Comfort measures only status Z51.5
[2024-11-12 20:18] VITALS: BP 102/80; RESP 16; TEMP 97.5; O2SAT 100
[2024-11-12 20:21] VITALS: PULSE 111
[2024-11-12] MEDS: MoRPHine SULFATE 2 MG/ML CARP IV PRN (21:20)
[2024-11-13] MEDS: LORazepam 2 MG/1 ML VIAL IV PRN (05:38)
[2024-11-13 19:06] LABS: A calco-baum cmplx NotReported Not Detected (NotDetected); Bact fragilis Not Reported DETECTED (NotDetected); Blood Culture Id Panel See PCR Comment (NotDetected); C auris Not Reported Not Detected (NotDetected); Calbicans Not Reported Not Detected (NotDetected); Candida glabrata Not Reported Not Detected (NotDetected); Candida krusei Not Reported Not Detected (NotDetected); Cneoformans/gatti Not Reported Not Detected (NotDetected); Cparapsilosis Not Reported Not Detected (NotDetected); E cloacae compx Not Reported Not Detected (NotDetected); Efaecalis Not Reported Not Detected (NotDetected); Efaecium Not Reported Not Detected (NotDetected); Enterobacterales Not Reported Not Detected (NotDetected); Escherichia coli Not Reported Not Detected (NotDetected); H influenzae Not Reported Not Detected (NotDetected); K aerogenes Not Reported Not Detected (NotDetected); Koxytoca Not Reported Not Detected (NotDetected); Kpneumoniae grp Not Reported Not Detected (NotDetected); Lmonocyt Not Reported Not Detected (NotDetected); N meningitidis Not Reported Not Detected (NotDetected); P aeruginosa Not Reported Not Detected (NotDetected); Proteus spp Not Reported Not Detected (NotDetected); Salmonella spp Not Reported Not Detected (NotDetected); Staph lugdunensis Not Reported Not Detected (NotDetected); Staph spp. Not Reported Not Detected (NotDetected); Staphaureus Not Reported Not Detected (NotDetected); Staphepi Not Reported Not Detected (NotDetected); Stenmaltophilia Not Reported Not Detected (NotDetected); Strep agal(GrpB) Not Reported Not Detected (NotDetected); Strep pneum Not Reported Not Detected (NotDetected); Strep pyog (GrpA) Not Reported Not Detected (NotDetected); Strep spp Not Reported Not Detected (NotDetected)
--- NOTE | 2024-11-13 19:29 | Hospitalist Progress Note ---
Date of Service November 13, 2024 Assessment & Plan (1) Comfort measures only status: Plan: patient was hospitalized at [facility] from 10/25 to 11/02 due to sepsis from a large, severe decubitus ulcer of the sacral/buttocks region ultimately, at time of hospital discharge, the patient transitioned to home with [facility] services in place the patient's son as well as grandchildren (by report) had been providing the bulk of Mrs Rutherford's care in conjunction with [facility] about 3 days ago the patient worsened with development of altered mental status appetite has been very poor patient has evidence of recurrent sepsis presumed due to her infected decubiti (wound culture growing pseudomonas & staph aureus) she is severely anemic, has severe failure to thrive, has HEIDE (likely sepsis- associated ATN), and has had severe pain related to her ulcers she appears to be approaching end-of-life with perhaps just a few days of life remaining strongly recommended that Mrs Rutherford remain hospitalized for comfort care measures with IV morphine prn & other supportive care ultimately her son Bladimir was agreeable to such late in the day today he had asked nursing about the addition of gabapentin for pain control I did order such but I am concerned she may not be awake enough to take such he also had asked for ativan to be placed on hold - I did so as a courtesy I don't suspect she will have severe agitation or delirium but in the event she does can use zyprexa ODT will add atropine drops and scop patch prn cont morphine but change dosing interval to q3h prn may ultimately require morphine infusion but hold off on such plan of care today was discussed with nursing, social work, and the dry cleaning machine operator providers entire care team assistance much appreciated (2) Palliative care patient: (3) Sepsis: (4) Sacral decubitus ulcer: (5) Hospice care: (6) Failure to thrive: (7) CKD (chronic kidney disease) stage 4, GFR 15-29 ml/min: (8) Hx pulmonary embolism: (9) Factor 5 Leiden mutation, heterozygous: (10) Anemia: (11) Severe protein-calorie malnutrition: (12) Elevated troponin: (13) HEIDE (acute kidney injury): (14) Acute metabolic encephalopathy: Plan if at any point the patient's son wishes to take his mother home this would be considered an unsafe discharge for a variety of reasons (concerns that the wounds would not be addressed adequately in the home environment, etc) Office of Aging would need to be contacted [facility] to obtain an order for her to remain hospitalized Admission and Anticipated Discharge Date Admission Date: November 13, 2024 Subjective received message from nursing staff this am that the pt's son Bladimir asked to speak with me at bedside a short time later I went to the bedside and met with Bladimir nursing staff was present during the conversation [employer] security officers were present outside the room Bladimir was upset as he was under the impression that his mother would have a wound care consult "first thing this morning" he also voiced displeasure that the antibiotics she had received in the ER yesterday were not continued upon admission during the same conversation, however, he consistently stated that he knew his mother was dying and that he wanted to honor her wishes of dying at their home (rather than passing in the hospital) he expressed guilt about not honoring his mother's wishes and several times stated he had made a mistake bringing her back to the hospital we had a lengthy discussion about her pain control, the ability to safely transport her back to their house, etc. although he was upset that a formal wound care consult hadn't been completed yet - when I offered to have wound care see his mother today - he ultimately declined such I did state that given the severity of her mother's sacral/buttock decubitus that antibiotics would likely not be effective alone - rather, she would need surgical debridement in the OR to survive and to get better Bladimir felt that he had been "lied to" with respect to her care plan including the antibiotics that were started in the ER yesterday I gave him reassurances that no one on the care team was lying and that our primary goal was to keep his mother as comfortable as possible I voiced concern to Bladimir during this first visit that the window of opportunity to get his mother home with hospice again was likely closed and that our safest, most effective option would be to keep his mother hospitalized for end-of-life care I left Mrs Rutherford's room and told Bladimir that I would speak with social work about our options and then [place] back to update him later in the day I subsequently met with Dahlia from case management she reported she would reach out to [facility] which is the agency that had been providing hospice services prior to this admission while I was away from Mrs Rutherford's room security needed to be called once again as Bladimir was quite upset at the events of the last 12-24 hours additionally, members from our psychology team as well as the clinical coordinator met with the patient's son at bedside after gathering additional information (e.g. likelihood of [facility] renewing her home hospice services was very low) I met once again with Bladimir at bedside - this time in the afternoon nursing as well as Dahlia from case management were present a friend of Mrs Rutherford was present at bedside as well we strongly recommended to Bladimir to have his mother remain hospitalized for end-of-life care we explained that she was requiring frequent IV morphine for pain control/comfort and that this would be difficult to replicate outside a hospital setting I expressed my concerns that she may not be comfortable for an ambulance ride back to her house I discussed with Bladimir that his mother likely only has a few days to live and that we would do everything possible to maintain comfort, dignity, and peace in her final days discussed with Bladimir that the sacral decubiti were extensive, infected, and likely causing sepsis leading to her lethargy towards the conclusion of this 2nd discussion Bladimir voiced understanding of the care plan and was accepting of her to remain hospitalized at [facility] for comfort care offered hoisting pile driving engineer consult/support - Bladimir declined such multiple times I acknowledged Bladimir's feelings/emotions & the complexities surrounding his mother's decline I gave as much support as possible to Bladimir several times he had mentioned he was not feeling well and had been wobbly in the legs & weak with some dizziness recommended that he have an evaluation in the ER but he declined Review of Systems Review of Systems: Unobtainable due to reduced consciousness Physical Exam 2 Physical Exam: gen - toxic, lethargic, altered, very thin mouth - MM dry neck - no JVD heart - RRR, s1 s2 lungs - CTA b/l abd - soft, slightly tender mid-abdomen?, BS+ ext - pulses feet 2+ b/l psych - a/o x 0 skin - EXTENSIVE decubitus ulcer of buttocks, sacral region, and upper posterior thighs - hyperpigmentation, multiple ulcerations, and foul odor all present PG Care Time/CCT Total # of Minutes Spent Total Time Spent with Patient: Total time spent is greater than 50% in coordination of care (as documented) at patient's floor/unit and/or counseling patient: Prolonged Care Time Prolonged Care Time: Yes Total Prolonged Care Time: 100 Coding Level of Care Code 85006 SUB INP/OBS CARE 3/50MIN (25 - SIGNIFICANT, SEPARATELY IDENTIFIABLE ) Diagnoses Comfort measures only status Z51.5 Palliative care patient Z51.5 Sepsis A41.9 Sacral decubitus ulcer L89.159 Hospice care Z51.5 Failure to thrive CKD (chronic kidney disease) stage 4, GFR 15-29 ml/min N18.4 Hx pulmonary embolism Z86.711 Factor 5 Leiden mutation, heterozygous D68.51 Anemia D64.9 Anemia type: unspecified type Severe protein-calorie malnutrition E43 Elevated troponin R79.89 HEIDE (acute kidney injury) N17.9 Acute metabolic encephalopathy G93.41 Additional Codes Prolonged Care Time - Prolonged Care Time: Yes ([id number]) (10) Anemia Anemia type: unspecified type Qualified Code(s): D64.9 - Anemia, unspecified
[2024-11-13 20:29] LABS: Bacteroides fragilis DETECTED (NotDetected)
[2024-11-13] MEDS: GABAPENTIN 100 MG CAP PO SCH (20:44)
[2024-11-13] MEDS: MoRPHine SULFATE 2 MG/ML CARP IV PRN (22:25)
--- NOTE | 2024-11-14 20:40 | Discharge Summary ---
Discharge Summary Date of Service November 14, 2024 Principal Dx & Hospital Course #1 = Principal Diagnosis (1) Comfort measures only status: patient was hospitalized at [facility] from 10/25 to 11/02 due to sepsis from a large, severe decubitus ulcer of the sacral/buttocks region ultimately, at time of hospital discharge, the patient transitioned to home with [facility] services in place the patient's son as well as grandchildren (by report) had been providing the bulk of Mrs Rutherford's care in conjunction with [facility] about 3 days ago the patient worsened with development of altered mental status appetite has been very poor patient has evidence of recurrent sepsis presumed due to her infected decubiti (wound culture growing pseudomonas & staph aureus) she is severely anemic, has severe failure to thrive, has HEIDE (likely sepsis- associated ATN), and has had severe pain related to her ulcers she appears to be approaching end-of-life with perhaps just a few days of life remaining strongly recommended that Mrs Rutherford remain hospitalized for comfort care measures with IV morphine prn & other supportive care ultimately her son Bladimir was agreeable to such late in the day today he had asked nursing about the addition of gabapentin for pain control I did order such but I am concerned she may not be awake enough to take such he also had asked for ativan to be placed on hold - I did so as a courtesy I don't suspect she will have severe agitation or delirium but in the event she does can use zyprexa ODT will add atropine drops and scop patch prn cont morphine but change dosing interval to q3h prn may ultimately require morphine infusion but hold off on such plan of care today was discussed with nursing, social work, and the auto dealership porter providers entire care team assistance much appreciated (2) Decubitus ulcer, stage 4 with infection: (3) Palliative care patient: (4) Sepsis: (5) Hospice care: (6) Failure to thrive: (7) CKD (chronic kidney disease) stage 4, GFR 15-29 ml/min: (8) Hx pulmonary embolism: (9) Factor 5 Leiden mutation, heterozygous: (10) Anemia: (11) Severe protein-calorie malnutrition: (12) Elevated troponin: (13) HEIDE (acute kidney injury): (14) Acute metabolic encephalopathy: Admission HPI Per Admitting Provider Yohana Rutherford is a 74 year old female who presents to the ER as her son became power of attorney recruiter as she was not longer able to make decisions and wished her to be seen in the hospital and taken off hospice care. Unable to get any history from the patient when seen, she is currently comfortable sleeping and on comfort care therefore not in her interests to wake up with noxious stimuli. Son is no longer available at bedside - I tried calling her son Bladimir Rutherford however no answer on number provided and voicemail box was full. History obtained from chart review and ER physician. She was recently admitted from October 25 - November 02, 2024 with sepsis from her sacral ulcer. She was in such pain last admission and the ulcer was at such an advanced stage she wished to be discharged on comfort care and made this clear throughout her admission from her second day. She was discharged home on comfort care per patient wishes. The patient also made it clear to the ER physician she did not want to be here in hospital. I understand however the patient son saw her today and decided the patient was no longer on hospice and called for an ambulance for an evaluation in the ER. After extensive discussion with the ER physician he also now wishes to concentrate on her comfort and wishes to make her hospice care again however the agency cannot take her back until tomorrow and there is also concern whether she can adequately get what she needs from hospice at her home. Discharge Plan Discharge Items Patient Disposition: Other Date/Time: 11/14/24 13:25 Hospital Stay Data Consultations 11/12/24 17:39 ED Decision to Admit Stat Coding Diagnoses Comfort measures only status Z51.5 Decubitus ulcer, stage 4 with infection L89.94; L08.9 Palliative care patient Z51.5 Sepsis A41.9 Hospice care Z51.5 Failure to thrive CKD (chronic kidney disease) stage 4, GFR 15-29 ml/min N18.4 Hx pulmonary embolism Z86.711 Factor 5 Leiden mutation, heterozygous D68.51 Anemia D64.9 Anemia type: unspecified type Severe protein-calorie malnutrition E43 Elevated troponin R79.89 HEIDE (acute kidney injury) N17.9 Acute metabolic encephalopathy G93.41
--- NOTE | 2024-11-14 20:43 | Death Pronouncement Note ---
Date of Service November 14, 2024 Pronouncement Note Admission Date November 13, 2024 Date and Time of Date of : 11/14/24 Time of : 13:25 Preliminary Cause of (1) Sepsis: (2) Infected decubitus ulcer: Additional Data Confirmation of : no pulse, no respirations, no heart sounds and pupils fixed and dilated Pronouncement Performed By: Attending Physician Family: contacted Attending/PCP notified?: Yes Attending physician: Teofilo Leggett MD Was code activated?: No Autopsy requested?: No cattle examiner notified?: No Organ bank notified?: No Coding Level of Care Code None Diagnoses Sepsis A41.9 Infected decubitus ulcer L89.90; L08.9
--- NOTE | 2024-11-14 21:36 | Electrocardiogram Report ---
Test Reason : Blood Pressure : */* mmHG Vent. Rate : 134 BPM Atrial Rate : 134 BPM P-R Int : 132 ms QRS Dur : 60 ms QT Int : 304 ms P-R-T Axes : 61 45 84 degrees QTcB Int : 453 ms Sinus tachycardia with Premature atrial complexes Low voltage QRS Nonspecific ST and T wave abnormality Abnormal ECG When compared with ECG of 25-Oct-2024 12:54, Premature atrial complexes are now Present Minimal criteria for Anterior infarct are no longer Present Confirmed by Vinh Hall ([id number]) on 11/14/2024 9:36:44 PM Referred By: Confirmed By: Vinh Hall
--- NOTE | 2024-11-15 06:46 | Coding Query ---
PRESSURE ULCER DOCUMENTATION To promote full compliance with coding requirements relating to patient care, physician participation is requested in all cases of professional bondsman uncertainty. Please assist us with the question(s) below: Please specify the known or suspected type by placing an "X" within the parenthesis (x). A pressure ulcer of the Sacrum. If possible, please check the box that provides the specific stage of the pressure ulcer ( ) Stage I ( ) Stage II ( ) Stage III (x ) Stage IV ( ) Unstageable Was the pressure ulcer present on admission? Please check the appropriate box for the pressure ulcer: (x ) Present on admission ( ) Not present on admission ( ) Unable to be clinically determined Thank you Elieser HUNT
== END 2024-11-14 16:00 | disposition expired | DRG 951 ==
LOC: EDINP 15:24 → ED 15:24 → SUATTDRO 17:52 → 3E 19:35